=== PATIENT | female | born 1990 | race Caucasian/White ===

== ENCOUNTER 2019-11-14 12:52 | Inpatient (IN) | payer SELFPAY ==
[2019-11-14] VITALS (7 sets, daily range): BP systolic 99–112; BP diastolic 64–71; PULSE 94–118; RESP 16–18; TEMP 36.6–37; O2SAT 94–100; BMI 22.8; BMI 22.5
--- NOTE | 2019-11-14 13:45 | ED.VISSUMM ---
- ER Visit Summary Date of Service: 11/14/19 Chief Complaint: Requesting detox for fentanyl methamphetamine abuse History of Present Illness: The patient is a 28 F G2, P1 Ab0. Recently found out she was with a positive home test. She denies any pelvic pain or vaginal bleeding. 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 Also states that she has abscesses in her right armpit and right chin. When she abuses fentanyl she should sit up in her right antecubital. Denies ever going through detox inpatient before. Physical Examination: Young female no acute distress vital signs are stable afebrile. H EENT exam unremarkable. Neck nontender. Lungs clear to auscultation. Heart regular rhythm no murmur. Abdomen soft and nontender normal bowel sounds no peritoneal signs. She is moving all 4 extremities. Neurovascularly intact. She is a flat nontender abscess on her right proximal third of her alarcon. There is no cellulitis. Is not fluctuant does not need to be drained. There is no cellulitis. Her right axilla has 3 small abscesses that are resolving. She I&D does herself with a pen. Again no cellulitis. No fluctuance. Neurologically she is awake and alert with no focal motor or sensory deficits. Test Results: None Emergency Department Course and Treatment: Discussed with the hospitalist showroom consultant and he will admit the patient for detox. 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 It may contain incorrect words, spelling, and punctuation that were not noted in review of the chart prior to signing ED Disposition - Plan for ED Patient: Referrals: Rose Stevens MD [Primary Care Provider] -
--- NOTE | 2019-11-14 14:49 | HP.PCM_ITS ---
History of Present Illness Date of Admission: 11/14/19 Chief Complaint: Fentanyl use and left ear pain The patient is a 28 year old F with a PMH as below who presents after finding out that she was for fentanyl and meth detox. Her last use was yesterday, but she cannot quantify how much. She is denying any type of withdrawal symptoms at the moment, but she feels like she needs to get clean for the baby. She has been recommended previously and gave via section. She says that the last day of her last period was September 02, however she does not have an OB or a city wellness coordinator currently. Also she is complaining of left ear pain which started 1 to 2 weeks ago, she has noticed some discharge on occasion as well as blood on occasion coming out of her ear. She denies any fevers or chills. In the ER vital signs are stable, and a urine test is pending. 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 Review of Systems Constitutional: Denies: Chills, Fever, Weight Change HEENT: Reports: Ear Pain - With periodic drainage. Denies: Head Aches, Sinus Congestion, Sinus Drainage Cardiovascular: Denies: Chest Pain, Palpitations Respiratory: Denies: Cough, Shortness of breath at rest, Sputum production Gastrointestinal: Denies: Abdominal Pain, Nausea, Vomiting Genitourinary: Denies: Dysuria Musculoskeletal: Denies: Joint Pain, Joint Tenderness Skin: Denies: Rash, Wounds Neurological: Denies: Numbness, Tingling, Focal weakness Psychiatric: Denies: Anxiety, Depression Hematologic/ Lymphatic: Denies: Easy Bruising, Easy Bleeding VTE Information - Inpt Only VTE Present on Admission: No - Physical Exam Vitals/I&O's: Vital Signs Temp Pulse Resp BP Pulse Ox 98.4 F 97 16 102/64 98 11/14/19 14:11 11/14/19 14:11 11/14/19 14:11 11/14/19 14:11 11/14/19 12:53 Oxygen Delivery Method Room Air Weight: 125 lb Body Mass Index (BMI) 22.8 General: Alert, Oriented x3, Cooperative, No apparent distress HEENT: Atraumatic, PERRLA, EOMI, Normocephalic, TM's Clear, - - Left external ear pain with pulling, and there are some excoriations and redness in the left ear canal, TMs are clear bilaterally Oral: Moist Mucosa Neck: Supple, No JVD Lungs: Clear to auscultation, Normal air movement, No rhonchi, No wheeze, No rales Cardiovascular: Regular rate, Regular Rhythm, Normal S1, Normal S2, No murmurs Abdomen: Soft, Non Tender, Non-Distended, No Hepato-splenomegaly Extremities: No edema, Capillary Refill Less than 3 Seconds Skin: No breakdown, - - Signs of track miller and areas of healing abscesses on her upper and lower extremities Neurological: Neuro grossly intact, Sensory exam intact to light touch and pain Psych/Mental Status: Normal Affect, Appropriate Assessment/Plan All Active Problems Acute respiratory failure with hypoxia (Acute) Acute severe asthma (Acute) 1. Fentanyl and and meth abuse/ - test is pending, -Last use was yesterday at 4 AM -Last period was September 02 -We will obtain HIV, hep B and hep C panels -Continue with opioid withdrawal protocol, clonidine and methocarbamol were not continued because of risk however we will continue with Librium and Suboxone as well as Bentyl and hydroxyzine 2. Acute otitis externa -She does have some distress with manipulation of her left ear -We will prescribe Cipro drops in that left ear 4 times a day 3. Depression -Stable -Continue with her home medications 4. Asthma -Stable -Not in a current exacerbation -We will continue with her home inhalers DVT: Low risk Code Visit Inpatient E&M: 86113 Init Hosp L3
[2019-11-14 14:55] LABS: Internal QC Validated? YES +Cl - CLEAR BKGD
[2019-11-14 14:56] LABS: Pregnancy, Urine Negative Negative
[2019-11-14 16:32] LABS: Internal QC Validated? YES +Cl - CLEAR BKGD; Pregnancy, Serum, hCG Quali. NEGATIVE Negative
[2019-11-14] MEDS: Dicyclomine 10 MG Capsule 20 MG PO (17:05)
[2019-11-14] MEDS: Famotidine 20 MG Tablet PO (17:05)
[2019-11-14] MEDS: Montelukast 10 MG Tablet PO (17:05)
[2019-11-14] MEDS: Buprenorphine HCl 2 MG TAB.SUBL SL ×2 (17:06→23:20)
[2019-11-14] MEDS: Sertraline 50 MG Tablet 75 MG PO (17:06)
[2019-11-14 17:39] LABS: HIV - WCH Non-Reactive (Nonreactive)
[2019-11-14] MEDS: Ciprofloxacin 0.3% 2.5ml Bottle 4 DRP LEFT EAR ×2 (19:32→23:20)
[2019-11-14] MEDS: hydrOXYzine PAM 25 MG Capsule 50 MG PO (19:33)
[2019-11-14] MEDS: Acetaminophen 325 MG Tablet 650 MG PO (19:33)
[2019-11-15 04:16] VITALS: BP 106/68; PULSE 89; RESP 14; TEMP 36.7; O2SAT 97
[2019-11-15] MEDS: hydrOXYzine PAM 25 MG Capsule 50 MG PO (04:19)
--- NOTE | 2019-11-15 09:13 | PCM.PN.HOSP ---
Subjective: Resting comfortably, no issues overnight Vitals/I&O's: Vital Signs Temp Pulse Resp BP Pulse Ox 98.0 F 89 14 106/68 97 11/15/19 04:16 11/15/19 04:16 11/15/19 04:16 11/15/19 04:16 11/15/19 04:16 Oxygen Delivery Method Room Air Weight: 123 lb 3.2 oz Body Mass Index (BMI) 22.5 Intake and Output for Last 24 Hours 11/13/19 11/14/19 11/15/19 23:59 23:59 23:59 Intake Total 1000 / 1000 200 / 200 Balance 1000 / 1000 200 / 200 General: Alert, Oriented x3, Cooperative, No apparent distress HEENT: Atraumatic, PERRLA, EOMI, Normocephalic, TM's Clear, - - Left external ear pain with pulling Oral: Moist Mucosa Neck: Supple, No JVD Lungs: Clear to auscultation, Normal air movement, No rhonchi, No wheeze, No rales Cardiovascular: Regular rate, Regular Rhythm, Normal S1, Normal S2, No murmurs Abdomen: Soft, Non Tender, Non-Distended, No Hepato-splenomegaly Extremities: No edema, Capillary Refill Less than 3 Seconds Skin: No breakdown, - - Signs of track miller and areas of healing abscesses on her upper and lower extremities Neurological: Neuro grossly intact, Sensory exam intact to light touch and pain Psych/Mental Status: Normal Affect, Appropriate Laboratory Results 11/14/19 14:46: Urine Test Negative 11/14/19 15:50: Hepatitis A IgM Ab Pending, Hep Bs Antigen Pending, Hep B Core IgM Ab Pending, Hepatitis C Ab (EIA) Pending 11/14/19 15:50: HIV 1&2 Antibody Non-Reactive 11/14/19 15:50: Serum , Qual NEGATIVE Current Medications Acetaminophen (Tylenol) 650 mg PO Q6H PRN PRN PRN Reason: Pain Score 1-10/10 Last Admin: 11/14/19 19:33 Dose: 650 mg Documented by: Albuterol Sulfate (Ventolin Aerosols) 2.5 mg INHALATION Q4H PRN PRN Reason: Wheezing Buprenorphine HCl (Buprenorphine Hcl) 4 mg SL Q8H SCOTT; Taper Stop: 11/17/19 19:59 Last Admin: 11/14/19 23:20 Dose: 4 mg Documented by: Buspirone HCl (Buspar) 5 mg PO DAILY [facility] Chlordiazepoxide (Librium) 25 mg PO Q6H PRN PRN PRN Reason: Moderate-Severe Anxiety Ciprofloxacin HCl (Ciloxan) 4 drop LEFT EAR 4X/DAY [facility] Last Admin: 11/14/19 23:20 Dose: 4 drop Documented by: Dicyclomine HCl (Bentyl) 20 mg PO Q6H PRN PRN PRN Reason: Abdomnial Discomfort Last Admin: 11/14/19 17:05 Dose: 20 mg Documented by: Famotidine (Pepcid) 20 mg PO BID [facility] Last Admin: 11/14/19 17:05 Dose: 20 mg Documented by: Hydroxyzine Pamoate (Vistaril Pamoate Capsule) 50 mg PO Q6H PRN PRN PRN Reason: Mild Anxiety Last Admin: 11/15/19 04:19 Dose: 50 mg Documented by: Ibuprofen (Motrin) 600 mg PO Q8H PRN PRN PRN Reason: Pain Score 1-10/10 Montelukast Sodium (Singulair) 10 mg PO QHS [facility] Last Admin: 11/14/19 17:05 Dose: 10 mg Documented by: Nicotine (Nicoderm Cq (Pbkc)) 7 mg TRANSDERM. DAILY [facility] Last Admin: 11/14/19 19:32 Dose: 7 mg Documented by: Sertraline HCl (Zoloft) 75 mg PO DAILY [facility] Last Admin: 11/14/19 17:06 Dose: 75 mg Documented by: Sodium Chloride () 10 - 40 ml IV UD PRN PRN Reason: SALINE FLUSH Medical Necessity - Tobacco Use Smoking Status: Light Smoker (<10/day) Tobacco Use: Cigarettes Assessment/Plan All Active Problems Acute respiratory failure with hypoxia (Acute) Acute severe asthma (Acute) 1. Fentanyl and and meth abuse - test is negative both serum and urine -Last use was yesterday at 4 AM -hep B and hep C panels pending, HIV negative -Continue with opioid withdrawal protocol, 2. Acute otitis externa -She does have some distress with manipulation of her left ear -We will prescribe Cipro drops in that left ear 4 times a day 3. Depression -Stable -Continue with her home medications 4. Asthma -Stable -Not in a current exacerbation -We will continue with her home inhalers DVT: Low risk Code Visit Inpatient E&M: 13378 Subs Hosp L2
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
[2019-11-15 10:25] VITALS: BP 105/59; PULSE 41; RESP 16; TEMP 37; O2SAT 96
[2019-11-15] MEDS: Sertraline 50 MG Tablet 75 MG PO (10:36)
[2019-11-15] MEDS: Ibuprofen 600 MG Tablet PO (10:37)
[2019-11-15] MEDS: chlordiazePOXIDE 25 MG Capsule PO (10:37)
[2019-11-15] MEDS: Famotidine 20 MG Tablet PO ×2 (10:37→22:45)
[2019-11-15] MEDS: busPIRone 5 MG Tablet PO (10:37)
[2019-11-15] MEDS: Dicyclomine 10 MG Capsule 20 MG PO (10:38)
[2019-11-15] MEDS: Ciprofloxacin 0.3% 2.5ml Bottle 4 DRP LEFT EAR ×4 (10:38→22:43)
[2019-11-15] MEDS: Buprenorphine HCl 2 MG TAB.SUBL SL ×2 (10:41→15:41)
--- NOTE | 2019-11-15 12:24 | NURSING ---
PT RESTING QUIETLY IN BED, EYES CLOSED, RESP EASY
--- NOTE | 2019-11-15 12:29 | NURSING ---
PT RESTING QUIETLY IN BED, EYES CLOSED, RESP EASY
[2019-11-15 14:30] VITALS: BP 106/85; PULSE 109; RESP 18; TEMP 36.7; O2SAT 98
[2019-11-15 18:30] VITALS: BP 110/66; PULSE 101; RESP 16; TEMP 36.8; O2SAT 97
[2019-11-15 22:36] VITALS: BP 104/68; PULSE 88; RESP 16; TEMP 36.7; O2SAT 95
[2019-11-15] MEDS: Montelukast 10 MG Tablet PO (22:45)
[2019-11-16] MEDS: Buprenorphine HCl 2 MG TAB.SUBL SL ×2 (00:52→08:14)
[2019-11-16 03:06] LABS: HEPATITIS B SURFACE AG Negative (Negative); Hepatitis A IgM Antibody Positive (Negative); Hepatitis B Core AB IgM Positive (Negative)
[2019-11-16 04:33] VITALS: BP 107/65; PULSE 95; RESP 16; TEMP 36.6; O2SAT 95
[2019-11-16] MEDS: Ibuprofen 600 MG Tablet PO (04:38)
[2019-11-16 09:06] VITALS: BP 119/75; PULSE 119; RESP 18; TEMP 36.7; O2SAT 97
[2019-11-16] MEDS: Famotidine 20 MG Tablet PO (09:08)
[2019-11-16] MEDS: Sertraline 50 MG Tablet 75 MG PO (09:09)
[2019-11-16] MEDS: busPIRone 5 MG Tablet PO (09:09)
[2019-11-16] MEDS: Ciprofloxacin 0.3% 2.5ml Bottle 4 DRP LEFT EAR (09:11)
--- NOTE | 2019-11-16 09:30 | NURSING ---
Pt was seen with her jacket on with her aguilar over her head and back pack on. Pt was stopped at the door and questioned if she was a patient. Pt said she was in [address] and was leaving. It's [place] and I'm going to go see my child. Pt was agitated that we stopped her. Also became more agitated when we asked her to sign AMA paper. This is why I was trying to leave without anyone knowing, I just want to go see my kid and this is taking too long. Pt signed AMA paper.
--- NOTE | 2019-11-16 09:57 | PCM.PN.HOSP ---
Subjective: Doing well, she had a little bit of sweating last night but otherwise she feels fine. Vitals/I&O's: Vital Signs Temp Pulse Resp BP Pulse Ox 98.1 F 119 H 18 119/75 97 11/16/19 09:06 11/16/19 09:06 11/16/19 09:06 11/16/19 09:06 11/16/19 09:06 Oxygen Delivery Method Room Air Weight: 123 lb 3.2 oz Body Mass Index (BMI) 22.5 Intake and Output for Last 24 Hours 11/14/19 11/15/19 11/16/19 23:59 23:59 23:59 Intake Total 1000 / 1000 640 / 640 300 / 300 Balance 1000 / 1000 640 / 640 300 / 300 General: Alert, Oriented x3, Cooperative, No apparent distress HEENT: Atraumatic, PERRLA, EOMI, Normocephalic, TM's Clear, left ear feels fine Oral: Moist Mucosa Neck: Supple, No JVD Lungs: Clear to auscultation, Normal air movement, No rhonchi, No wheeze, No rales Cardiovascular: Regular rate, Regular Rhythm, Normal S1, Normal S2, No murmurs Abdomen: Soft, Non Tender, Non-Distended, No Hepato-splenomegaly Extremities: No edema, Capillary Refill Less than 3 Seconds Skin: No breakdown, - - Signs of track miller and areas of healing abscesses on her upper and lower extremities Neurological: Neuro grossly intact, Sensory exam intact to light touch and pain Psych/Mental Status: Normal Affect, Appropriate STROKE Vital Signs/Narrative: Vital Signs Temp Pulse Resp BP Pulse Ox 11/16/19 09:06 98.1 F 119 H 18 119/75 97 Medical Necessity - Tobacco Use Smoking Status: Light Smoker (<10/day) Tobacco Use: Cigarettes Assessment/Plan All Active Problems Acute respiratory failure with hypoxia (Acute) Acute severe asthma (Acute) 1. Fentanyl and and meth abuse - test is negative both serum and urine -Last use was yesterday at 4 AM -Hepatitis panels are pending, HIV was negative -Continue with opioid withdrawal protocol, 2. Acute otitis externa -She does have some distress with manipulation of her left ear -We will prescribe Cipro drops in that left ear 4 times a day 3. Depression -Stable -Continue with her home medications 4. Asthma -Stable -Not in a current exacerbation -We will continue with her home inhalers Disposition: After my exam the prior to writing this note I was notified that patient left AMA, nursing staff did discuss with her that it would be better for her gestational he had 1 more day for the opioid withdrawal protocol however she refused to stay. Because of this I was unable to prescribe her her eardrops for her otitis externa. DVT: Low risk Code Visit Inpatient E&M: 53064 Subs Hosp L2
--- NOTE | 2019-11-16 11:30 | NURSING ---
Pt went AMA at 0912, she signed the paperwork.
[2019-11-17 11:47] LABS: Hep C Antibodies >11.0 s/co ratio (0.0-0.9)
== END 2019-11-16 09:20 | disposition left against medical advice (07) | DRG 833 ==
LOC: ED 13:22 → MS3 14:03
PROVIDERS: Admitting Provider Family Medicine; Emergency Provider Emergency Medicine; Family Provider Internal Medicine; PCP Internal Medicine; Referring Provider Family Medicine; Visit Provider Family Medicine
DX: O99.321 Drug use complicating pregnancy, first trimester (principal); F15.10 Other stimulant abuse, uncomplicated; O99.331 Smoking (tobacco) complicating pregnancy, first trimester; F17.210 Nicotine dependence, cigarettes, uncomplicated; O99.341 Other mental disorders complicating pregnancy, first trimester; F32.9 Major depressive disorder, single episode, unspecified; O99.89 Other specified diseases and conditions complicating pregnancy, childbirth and the puerperium; H60.502 Unspecified acute noninfective otitis externa, left ear; J45.909 Unspecified asthma, uncomplicated; O99.511 Diseases of the respiratory system complicating pregnancy, first trimester; Z3A.00 Weeks of gestation of pregnancy not specified
CPT/HCPCS: 36415; 80074; 81025; 84703; 86703; 99283

== ENCOUNTER 2019-11-20 22:38 | Emergency (ER) | payer SELFPAY ==
[2019-11-14 15:23] VITALS: BMI 22.5
[2019-11-20 22:40] VITALS: BP 143/91; PULSE 117; RESP 24; TEMP 36.2; O2SAT 98; BMI 25.2
[2019-11-20] MEDS: Naloxone 2 MG/2 ML Syringe NS (22:59)
--- NOTE | 2019-11-20 23:00 | ED.RN ---
02 sats dropping to 62% while sleeping. new order for narcan and given nasally. pt alert and crying.
[2019-11-20 23:01] VITALS: PULSE 109; RESP 20; O2SAT 95
[2019-11-20 23:30] VITALS: PULSE 89; RESP 14; O2SAT 97
[2019-11-21] VITALS (7 sets, daily range): BP systolic 98–110; BP diastolic 71–82; PULSE 79–94; RESP 14–18; O2SAT 94–100
--- NOTE | 2019-11-21 00:19 | ED.DCSUM_ITS ---
- ER Visit Summary Date of Service: 11/21/19 Chief Complaint: Altered mental status History of Present Illness: The patient is a 28 F with altered mental status today. She was found on a friend's porch. She says that she was using meth yesterday and then fentanyl today. She denies any injury. She has no complaints. History is limited. She is oriented to person only and not cooperative with the history. Physical Examination: Afebrile and vital signs unremarkable. Head and neck atraumatic. Neck is nontender. Heart is regular. Lungs are clear. Abdomen is soft. Patient has multiple excoriations over her face and extremities with small scabs. She is moving her arms and legs restlessly. She has mild agitation. Test Results: Blood sugar pending. Emergency Department Course and Treatment: Patient was placed on a monitor. She seemed to be increasingly somnolent and her oxygen was dropping. We were also having trouble getting a good reading. She was treated with naloxone. She seemed to breathe better, and she was more comfortable. Pulse ox 96% on room air. Resting comfortably without agitation. We will continue to monitor overnight and discharge when alert, oriented, and otherwise appropriate. At this time, there is nothing to suggest trauma. There is nothing to suggest another cause for her altered mental status. Patient has no specific complaints. Oncoming doctor will monitor overnight. Discharge when appropriate. Treatment Plan: As above Disposition: Pending discharge Impression: 1. Methamphetamine abuse 2. Opioid abuse This note was generated with [employer] software. It may contain incorrect words, spelling, and punctuation that were not noted in review of the chart prior to signing ED Disposition - Plan for ED Patient: Referrals: Rose Stevens MD [Primary Care Provider] -
--- NOTE | 2019-11-21 00:28 | ED.DEP ---
ED Disposition - Plan for ED Patient: Instructions: Opiate Abuse Referrals: Rose Stevens MD [Primary Care Provider] -
[2019-11-21 00:31] LABS: Bedside Glucose 80 mg/dL (70-110)
== END 2019-11-21 06:37 | disposition home or self-care (01) ==
PROVIDERS: Emergency Medicine; Emergency Provider Emergency Medicine; Family Provider Internal Medicine; PCP Internal Medicine
DX: F15.10 Other stimulant abuse, uncomplicated (principal); F11.10 Opioid abuse, uncomplicated; R40.0 Somnolence; Z72.0 Tobacco use
CPT/HCPCS: 82962; 99285

== ENCOUNTER 2020-03-15 19:09 | Emergency (ER) | payer SELFPAY ==
[2020-03-15 19:10] VITALS: BP 121/74; PULSE 101; RESP 18; TEMP 36.7; O2SAT 94; BMI 25.0
--- NOTE | 2020-03-15 19:29 | ED.DCSUM_ITS ---
History of Present Illness Chief Complaint: Abscess Detail of Chief Complaint: Pain, swelling left thumb Informant: Patient Onset: Days Context: Sudden Onset Timing: Continuous Quality: Swelling and redness Location: Left thumb Current Severity: Mild Maximum Severity: Severe Worsened by: Use of left thumb Relieved by: Nothing Associated Symptoms: No associated symptoms Narrative: Patient is a 29-year-old IV drug user who presents because of presumed infected left thumb. She states she was cleaning under her nails using a pocket knife. She believes she may have cut herself. She complains of redness, pressure, s welling and pain that is gotten worse over the past 2 days. She denies fever, chills or night sweats. She denies history medic fever, SBE or being immune suppressed. She denies GI symptoms. She denies history of HIV. Prior similar symptoms: No Recent Illness/Hospitalization: No - Past Medical History (1) Bronchial asthma Status: Chronic Past Medical History - Allergies and Home Meds Allergies/Adverse Reactions: Allergies No Known Allergies Allergy (Verified 03/15/20 19:12) Primary Care Physician: Rose Stevens MD [Primary Care Provider] - Prior records reviewed: Yes Surgical History: - - section Lives: Alone Smoking Status: Current every day smoker Alcohol: Rare Drugs: Heroin - Family History Maternal Family History: Reports: Heart Disease Paternal Family History: Reports: COPD Sibling Family History: Reports: - - Her sister is diabetic. Review of Systems General: Denies: Chills, Fever, Malaise, Subjective, Sweats Eyes: Denies: Visual changes - bilaterally, Blurred Vision - bilaterally ENT: Denies: Rhinorrhea, Sore throat Cardiovascular: Denies: Chest pain, Palpitations Respiratory: Denies: Dyspnea, Cough, Dyspnea on exertion Gastrointestinal: Denies: Nausea, Vomiting, Diarrhea Musculoskeletal: Reports: Swelling, Extremity Pain. Denies: Myalgias, Arthralgias, Neck pain, Back pain Skin: Reports: Rash, Abscess. Denies: Abrasions, Wounds Neurological: Denies: Headache, Weakness, Parasthesia, Numbness Hematologic: Denies: Easy bruising, Easy bleeding Allergy: Denies: Uticaria, Swelling of the mouth, Swelling of the tongue Physical Exam Vital Signs/Narrative: Vital Signs Temp Pulse Resp BP Pulse Ox 03/15/20 19:10 98.0 F 101 H 18 121/74 H 94 Inital Vital Signs reviewed: Yes General: Well nourished, Well developed, No Acute Distress Head: Normocephalic, Atraumatic Eyes: Perrl, EOMI. Negative for: Pale conjunctiva, Scleral icterus ENT: Moist mucous membranes, No rhinorrhea Neck: Supple, Nontender, No lymphadenopathy, No JVD Cardiovascular: Regular rate, Regular rhythm, No murmurs, Normal S1, Normal S2 Respiratory: No distress, CTA bilaterally, Chest nontender Extremities: No edema, Tenderness - There is swelling and redness left thumb and findings are consistent with a felon. There is no lymphangitis. There is no pain the IP joint or MCP joint of the left thumb. There is no pain the patient over the extensor pollicis longus or extensor pollicis brevis. There is no pain the patient over the thenar eminence. There is no epitrochlear lymphadenopathy., - - Track miller noted upper extremities.. Negative for: Nontender Skin: Normal color, Rash. Negative for: No rash, Cyanosis, Diaphoresis, Jaundice Neurological: Alert, Oriented x3, Cranial nerves II-XII grossly intact, Normal Strength, Normal Sensation Psychological: Normal affect, Normal Mood Diagnostic/Tx/Re-eval - Medical Decision Making Has an abscess/felon that will require I&D. Please read procedure note. Patient will receive antibiotics and referred to orthopedics. Procedures Procedure(s): Patient was prepped draped sterile manner. The thumb was anesthetized by metacarpal nerve block and superficial radial nerve block. Once patient was not able to perceive pinprick and incision was made using a 15 blade. There was purulent drainage noted. Blunt dissection was undertaken. There was more drainage noted. The cavity was irrigated. ED Disposition - Plan for ED Patient: Disposition: Home or Assisted Living Diagnosis: Felon of finger of left hand Instructions: ED Abscess Incision And Drainage Prescriptions: Smz/Tmp Ds [Bactrim Ds] 1 tab PO BID #14 tab Transmission Status: Pending to [facility] Cephalexin [Keflex] 500 mg PO 4X/DAY #28 cap Transmission Status: Pending to [facility] Referrals: Rose Stevens MD [Primary Care Provider] - Jono Walter MD [STAFF PHYSICIAN] - 2 Days for wound check
[2020-03-15] MEDS: Smz/Tmp Ds Tablet 1 TABLET PO (19:58)
[2020-03-15] MEDS: Cephalexin 250 MG Capsule 500 MG PO (19:58)
== END 2020-03-15 20:10 | disposition home or self-care (01) ==
LOC: ED 20:07
PROVIDERS: Emergency Provider Emergency Medicine; PCP Internal Medicine
DX: L03.012 Cellulitis of left finger (principal); F17.200 Nicotine dependence, unspecified, uncomplicated
CPT/HCPCS: 26011; 99283

== ENCOUNTER 2020-08-05 23:07 | Inpatient (IN) | payer MEDICAID, SELFPAY ==
[2020-08-05 23:08] VITALS: BP 107/82; PULSE 101; RESP 18; TEMP 36.3; O2SAT 99; BMI 20.3
--- NOTE | 2020-08-05 23:09 | ED.RN ---
REVIEWED SOME PROTOCOLS FOR DETOX, IE: NO PHONE, NO FOOD, NO VISITORS.
[2020-08-06] VITALS (7 sets, daily range): BP systolic 91–112; BP diastolic 57–72; PULSE 79–95; RESP 12–16; TEMP 36.4–36.9; O2SAT 97–100; BMI 20.1
--- NOTE | 2020-08-06 00:15 | ED.DCSUM_ITS ---
- ER Visit Summary Date of Service: 08/06/20 Chief Complaint: Fentanyl detox History of Present Illness: The patient is a 29 F who requests admission for detox from fentanyl. Patient states she uses IV fentanyl. Patient states she is approximately half a gram per day. Patient states her last use was appr oximate 1 hour prior to arrival. Patient states she has been through detox before. Patient states her last detox was here 1 month ago. Patient denies any fevers or chills. Patient denies any nausea or vomiting. Patient denies any tremors or seizures. Physical Examination: Vital signs are stable. Patient is afebrile. Patient is in no acute distress. Oral mucosa is pink and moist. Neck is supple. Trachea is midline. There is no JVD noted. Heart was regular rate and rhythm. Lungs are clear and equal bilaterally. Abdomen is soft. Bowel sounds are normal. There is no tenderness. There is no rebound or guarding noted. Skin is warm dry. Cranial nerves II through XII are intact. There are no focal motor or sensory deficits noted. Extremities are intact. There is no calf tenderness or edema. Test Results: CBC, comprehensive metabolic profile, serum hCG, serum alcohol level, urinalysis, urine tox screen were ordered. Urine tox urine was positive for opiates, amphetamines, MDMA, and cannabinoids. Urinalysis showed leukocyte esterase of 500 with 10-25 red blood cells and 1+ bacteria. The remaining labs were within normal limits. Emergency Department Course and Treatment: Case was discussed with the hospitalist. She will admit the patient to her service. Patient understood and was agreeable with the plan. All questions were answered. Disposition: Admit to hospital Impression: 1. Narcotic abuse This note was generated with Reissued dictation software. It may contain incorrect words, spelling, and punctuation that were not noted in review of the chart prior to signing ED Disposition - Plan for ED Patient: Disposition: Acute Care Hospital [facility] Diagnosis: Opiate abuse, continuous
[2020-08-06 00:17] LABS: Mucous, Urine 0 SEEN /hpf (<or=2+); White Blood Cells 0 SEEN /hpf (0-5)
[2020-08-06 00:18] LABS: Color, Urine Yellow (Yellow); Glucose, Dipstick Normal (Normal); Ketone-Dipstick 5 mg/dl (Negative); Leukocyte Esterase-Dipstick 500 /ul (Negative); Nitrite-Dipstick Negative (Negative); Occult Blood-Urine 10 /ul (Negative); Protein-Dipstick 30 mg/dl (Negative); Specific Gravity, Urine 1.025 (1.002-1.030); Urine Bilirubin Dipstick Negative (Negative); Urine Clarity Clear (Clear); Urine Urobilinogen 1 mg/dl (Normal)
[2020-08-06 00:24] LABS: Bacteria 1+ /hpf (None Seen); Red Blood Cells-Urine 10-25 SEEN /hpf (0-5); Squamous Epithelial Cells - UA 0-5 SEEN /hpf (5-10)
[2020-08-06 00:33] LABS: Amphetamine Urine VISTA POSITIVE (<1000 ng/mL); Barbiturate Urine VISTA NEGATIVE (< 200 ng/mL); Benzodiazepine Urine VISTA NEGATIVE (< 200 ng/mL); Cocaine Urine VISTA NEGATIVE (< 300 ng/mL); Ecstacy Urine VISTA POSITIVE (< 500 ng/mL); Methadone Urine VISTA NEGATIVE (< 300 ng/mL); PCP Urine VISTA NEGATIVE (< 25 ng/mL); THC Urine VISTA POSITIVE (< 50 ng/mL); Vista UDS pH Range 5
[2020-08-06 00:35] LABS: Internal QC Validated? YES +Cl - CLEAR BKGD; Pregnancy, Urine Negative Negative
[2020-08-06 00:53] LABS: Absolute Lymphocyte Count 3.29 X10^3/uL (0.83-4.51); Absolute Neutrophil Count 2.1 X10^3/uL (2.0-7.7); Basophil# 0.05 X10^3/uL; Basophil% 0.8 % (0-1); Eosinophil# 0.18 X10^3/uL; Eosinophils% 2.9 % (0-5); Hematocrit 37.8 % (37-47); Hemoglobin 12.2 g/dL (12.0-15.0); Lymphocyte # 3.29 X10^3/ul (4.0); Lymphocyte % 53.2 % (19-41); Mean Corp Hgb Conc 32.3 g/dL (32-36); Mean Corpuscular Hgb 30.5 pg (27.0-32.0); Mean Corpuscular Volume 94.5 fL (81-99); Mean Platelet Vol. 8.9 fl (6.2-12.0); Monocyte# 0.54 X10^3/uL; Monocyte% 8.7 % (0-10); NRBC Flagged by Analyzer 0 % (0-5); Neutrophil # 2.12 X10^3/uL (2.7-7.7); Neutrophil % 34.2 % (47-70); Platelet Count 290 K/mm3 (150-450); RBC Distribution Width CV 13.2 % (11.6-14.6); RBC Distribution Width SD 45.8 fl (35.1-43.9); White Blood Count 6.2 K/mm3 (4.4-11.0)
[2020-08-06 01:01] LABS: ALB/GLOB Ratio 0.7 RATIO (0.9-2.4); AST(SGOT) 67 U/L (15-37); Alanine Aminotransfer ALT/SGPT 104 U/L (13-56); Albumin, Serum 3.2 g/dL (3.2-5.0); Alkaline Phosphatase 70 U/L (45-117); Anion Gap 5 (5-15); BUN 11 mg/dL (7-18); BUN/Creat Ratio 16.1 RATIO (10-20); Calcium,Total 8.6 mg/dL (8.5-10.1); Chloride 106 mmol/L (98-107); Creatinine, Serum 0.68 mg/dL (0.55-1.02); EST Glomerular Filtration Rate 109 mL/min (>60); Est Glom Filt Rate - Afr Amer 132 mL/min (>60); Estimated Creatinine Clearance 97.42 ml/min; Globulin 4.6 g/dL (2.2-4.2); Glucose 117 mg/dL (74-106); Protein, Total 7.8 g/dL (6.4-8.2); Sodium Level 136 mmol/L (136-145)
[2020-08-06 01:03] LABS: Alcohol, Blood (Medical)-Serum < 3.0 mg/dL
--- NOTE | 2020-08-06 01:05 | PCM.HP.STD ---
Problem List (1) Opiate withdrawal Status: Acute (2) Anxiety and depression Status: Chronic (3) Hepatitis C Status: Chronic Qualifiers: Viral hepatitis chronicity: unspecified Hepatic coma status: without hepatic coma Qualified Code(s): B19.20 - Unspecified viral hepatitis C without hepatic coma (4) IV drug abuse Status: Chronic (5) Tobacco use Status: Chronic (6) Opiate abuse, continuous Status: Chronic (7) Bronchial asthma Status: Chronic Qualifiers: Asthma severity: unspecified severity Asthma persistence: unspecified Asthma complication type: unspecified Qualified Code(s): J45.909 - Unspecified asthma, uncomplicated History of Present Illness Date of Admission: 08/06/20 Chief Complaint: Fentanyl, Meth abuse with acute opiate withdrawal The patient is a 29 y/o F w/ PMHx: Asthma, Anxiety and Depression, Allergic Rhinitis, Tobacco use, Polysubstance abuse (IV Fentanyl usually 1/2 g/day last used a prior to ED presentation, Meth normally used IV intermittently, use last approximately 2 days prior to current presentation), known hepatitis who presents to the [facility] ED on 08/06/20 w/ noted opiate withdrawal onset starting prior to ED presentation following last dose 4 to 5 hours prior to evaluation in the ED per patient report but notes that she has been in the ED for several hours and it was 1 to 2 hours prior to her initial ED presentation with now onset abdominal pain/cramping, generalized body aches and pains, rhinorrhea, fatigue, restless leg, sweating. Patient was previously admitted in October for opiate withdrawal. Asked why patient has returned and she notes that her daughter has an upcoming fifth birthday and she is interested in obtaining clean status. Talked at length about her hepatitis C status and possibly be strongly encouraging her to maintain clean status with ongoing documented meeting attendance for initiation of treatment for hepatitis. Work-up in the ED included T 97.4, heart rate 101, BP 107/82, respiratory rate 18, 99% on room air, CBC with WC 6.2, hemoglobin 12.2, platelet 290, CMP with glucose 117, AST/ALT 67/104, alk phos 70, negative testing, urinalysis with evidence dehydration 1.025, protein 30, ketone 5, occult blood 10, negative nitrite, leukocyte Estrace 500, RBC 10-25, no urine WBCs, 1+ urine bacteria noted, UDS with opiates, amphetamine, methamphetamine, cannabis, ethyl alcohol less than 3. Past Medical History Past Medical History (Chronic Problems): Chronic Problems Opiate abuse, continuous (Chronic) Anxiety and depression (Chronic) Hepatitis C (Chronic) IV drug abuse (Chronic) Tobacco use (Chronic) Obesity (BMI 30-39.9) (Chronic) Bronchial asthma (Chronic) Allergies No Known Allergies Allergy (Verified 03/15/20 19:12) Home Medications: Ambulatory Orders Medication Instructions Recorded Famotidine [Pepcid] 20 mg PO BID 01/26/16 Albuterol Sulfate [Albuterol 2 puff PO BID PRN PRN 08/06/20 Sulfate HFA] Budesonide/Formoterol 160/4.5 2 puff PO DAILY 08/06/20 [Symbicort 160/4.5 Mcg Inhaler (SP)] Montelukast [Singulair] 10 mg PO DAILY 08/06/20 Sertraline HCl [Zoloft] 75 mg PO DAILY 08/06/20 busPIRone [Buspar] 10 mg PO TID 08/06/20 Surgical History: - - x1. 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 Her daughter who is nearly turning 5 years old currently lives with her dad although patient does states she has custody. Smoking Status: Current every day smoker Tobacco Use: Cigarettes Alcohol: None Drugs: - - IV fentanyl approximately 1/2 g/day in addition to methamphetamine intermittently also intravenously. - *Family History Maternal History Items: Diabetes, Heart Disease Paternal History Items: COPD, - - Father with a history of substance abuse, alcohol abuse. Sibling History Items: - - Her sister is diabetic. Review of Systems Constitutional: Reports: Anorexia, Chills, Malaise, Weakness, Fatigue. Denies: Fever, Weight Change HEENT: Reports: Nasal Congestion, Post Nasal Drip, Sinus Congestion. Denies: Head Aches, Nasal bleeding, Sinus Drainage Cardiovascular: Denies: Chest Pain, Chest Pressure, Chest Tightness, Light Headedness, Orthopnea, Palpitations, Syncope Respiratory: Denies: Cough, Shortness of Breath, Shortness of breath at rest, Shortness of breath upon exertion, Sputum production Gastrointestinal: Reports: Abdominal Pain, Nausea. Denies: Constipation, Diarrhea, Vomiting Genitourinary: Denies: Dysuria Musculoskeletal: Reports: Joint Pain, Muscle pain. Denies: Joint Tenderness Skin: Denies: Rash, Wounds Neurological: Denies: Numbness, Tingling, Focal weakness Psychiatric: Reports: Anxiety, Depression. Denies: Homicidal Ideations, Suicidal Ideations Hematologic/ Lymphatic: Denies: Easy Bruising, Easy Bleeding VTE Information - Inpt Only VTE Present on Admission: No VTE Mechan Device Prophylaxis: None VTE Pharm Prophylaxis ordered?: No Reason prophylaxis not ordered:: Treatment Not Indicated Patient Problems: Active and Suspected Problems Opiate withdrawal (Acute) Subjective: Seated upright in the ED bed, anxious, moving frequently but also yawning. Objective: Physical Examination: General: awake, alert, oriented x 3 and cooperative, seated upright in the ED bed, anxious, moving frequently but notes she is tired. Skin: normal color, turgor, no icterus, cyanosis. HEENT: AT/NC, EOMI, PERRLA, mild rhinorrhea evident, dry MM, no carotid bruits or JVD noted. Lungs: CTA bilaterally, moderate effort, mild decrease BL bases, no rales, ronchi or wheezing. Heart: Regular rate and rhythm; no gallop, rub audible. Abdomen: soft, generalized discomfort with palpation with no rebound or guarding, ND, mildly hyperactive BS, mild HM. Extremities: no cyanosis, clubbing, or edema. Neurological: patient awake, alert, oriented x 3; cognitive function intact; pupils equally reactive to light and accomodation; cranial nerves II-XII grossly normal, moving all 4 extremities, no focal deficits, strength mild to moderate global decrease secondary to acute presentation with withdrawal Psychiatric: affect appears restless, anxious, no acute evidence of depressive feelings. - Physical Exam Vitals/I&O's: Vital Signs Temp Pulse Resp BP Pulse Ox 97.4 F L 101 H 18 107/82 H 99 08/05/20 23:08 08/05/20 23:08 08/05/20 23:08 08/05/20 23:08 08/05/20 23:08 Oxygen Delivery Method Room Air Weight: 111 lb 1.808 oz Body Mass Index (BMI) 20.3 Finger Stick Blood Glucose 80 Laboratory Results 08/05/20 00:05: Urine Color Yellow, Urine Clarity Clear, Urine pH 6.0, Ur Specific [place] 1.025, Urine Protein 30 H, Urine Glucose (UA) Normal, Urine Ketones 5 H, Urine Occult Blood 10 H, Urine Nitrite Negative, Urine Bilirubin Negative, Urine Urobilinogen 1 H, Ur Leukocyte Esterase 500 H, Urine RBC 10-25 SEEN, Urine WBC 0 SEEN, Ur Squamous Epith Cells 0-5 SEEN, Urine Bacteria 1+, Urine Mucus 0 SEEN 08/05/20 00:05: Urine Opiates Screen POSITIVE H, Urine Methadone Screen NEGATIVE, Ur Barbiturates Screen NEGATIVE, Ur Phencyclidine Scrn NEGATIVE, Ur Amphetamines Screen POSITIVE H, U Methamphetamin-MDMA POSITIVE H, U Benzodiazepines Scrn NEGATIVE, Urine Cocaine Screen NEGATIVE, U Cannabinoids Screen POSITIVE H, Ur Drug Screen Comment 08/06/20 00:05: Urine Test Negative 08/06/20 00:28: WBC Cancelled, Corrected WBC Cancelled, RBC Cancelled, Hgb Cancelled, Hct Cancelled, MCV Cancelled, MCH Cancelled, MCHC Cancelled, RDW Std Deviation Cancelled, RDW Coeff of Tiffanie Cancelled, Plt Count Cancelled, MPV Cancelled, Immature Gran % (Auto) Cancelled, Neut % (Auto) Cancelled, Lymph % (Auto) Cancelled, [place] % (Auto) Cancelled, Eos % (Auto) Cancelled, Baso % (Auto) Cancelled, Absolute Neuts (auto) Cancelled, Absolute Lymphs (auto) Cancelled, Total Counted Cancelled, Neutrophils % (Manual) Cancelled, Band Neutrophils % Cancelled, Lymphocytes % (Manual) Cancelled, Monocytes % (Manual) Cancelled, Eosinophils % (Manual) Cancelled, Basophils % (Manual) Cancelled, Metamyelocytes % Cancelled, Myelocytes % Cancelled, Promyelocytes % Cancelled, Blast Cells % Cancelled, Plasma Cell % (Manual) Cancelled, Other Cells % Cancelled, Nucleated RBC % Cancelled, Nucleated RBCs/100 WBC Cancelled, Differential Comment Cancelled, Diff Path Review Cancelled, Hypersegmented Neuts Cancelled, Atypical Lymphocytes Cancelled, Reactive Lymphocytes Cancelled, Smudge Cells Cancelled, Toxic Granulation Cancelled, Toxic Vacuolation Cancelled, Dohle Bodies Cancelled, Jacob Rods Cancelled, Platelet Estimate Cancelled, Plt Morphology Comment Cancelled, RBC Morphology Cancelled, Polychromasia Cancelled, Hypochromasia Cancelled, Poikilocytosis Cancelled, Basophilic Stippling Cancelled, Anisocytosis Cancelled, Microcytosis Cancelled, Macrocytosis Cancelled, Spherocytes Cancelled, Sickle Cells Cancelled, Target Cells Cancelled, Tear Drop Cells Cancelled, Ovalocytes Cancelled, Stomatocytes Cancelled, [place] Bodies Cancelled, Everardo Cells Cancelled, Bite Cells Cancelled, Crenated Cell Cancelled, Acanthocytes (Spur) Cancelled, Rouleaux Cancelled, Schistocytes Cancelled 08/06/20 00:28: Sodium 136, Potassium 4.0, Chloride 106, Carbon Dioxide 25.0, Anion Gap 5, BUN 11, Creatinine 0.68, Estim Creat Clear Calc 97.42, Est GFR (MDRD) Af Amer 132, Est GFR (MDRD) Non-Af 109, BUN/Creatinine Ratio 16.1, Glucose 117 H, Calcium 8.6, Total Bilirubin 0.40, AST 67 H, ALT 104 H, Alkaline Phosphatase 70, Total Protein 7.8, Albumin 3.2, Globulin 4.6 H, Albumin/Globulin Ratio 0.7 L 08/06/20 00:28: Ethyl Alcohol < 3.0 08/06/20 00:42: WBC 6.2, RBC 4.00 L, Hgb 12.2, Hct 37.8, MCV 94.5, MCH 30.5, MCHC 32.3, RDW Std Deviation 45.8 H, RDW Coeff of Tiffanie 13.2, Plt Count 290, MPV 8.9, Immature Gran % (Auto) 0.200, Neut % (Auto) 34.2 L, Lymph % (Auto) 53.2 H, [place] % (Auto) 8.7, Eos % (Auto) 2.9, Baso % (Auto) 0.8, Absolute Neuts (auto) 2.1, Absolute Lymphs (auto) 3.29, Nucleated RBC % 0 Assessment/Plan All Active Problems Opiate withdrawal (Acute) Acute respiratory failure with hypoxia (Acute) Acute severe asthma (Acute) The patient is a 29 y/o F w/ PMHx: Asthma, Anxiety and Depression, Allergic Rhinitis, Tobacco use, Polysubstance abuse (IV Fentanyl, Meth), known hepatitis who presents to the [facility] ED on 08/06/20 w/ noted opiate withdrawal onset starting prior to ED presentation following last dose 4 to 5 hours prior to evaluation in the ED per patient report but notes that she has been in the ED for several hours and it was 1 to 2 hours prior to her initial ED presentation with now onset opiate acute withdrawal interested in clean status. 1. Acute Opiate Withdrawal: Will admit to [facility], routine labs including CBC, CMP, urine for drug screen obtained in the ED with noted elevated liver functions chronically, urinalysis with evidence of dehydration denied urinary symptoms, UDS with positive opiate, amphetamine, methamphetamine, cannabis, ethyl alcohol level unremarkable, will initiate and continue on protocol with tapering course of Subutex, as needed tylenol, ibuprofen, bowel regimen, gabapentin, Bentyl, Vistaril, methocarbamol, clonidine, PRN nightly trazodone for insomnia, IV fluids, IV antiemetics. Once patient clinically improved and completion of taper nearing will plan consultation with case management for transition to next level of rehabilitation care. 2. Polysubstance Abuse, IVDA, History of Hepatitis C, Chronic, possibly B: Discussed that patient is currently not candidate for hep C treatment currently as needs to be clean, sober x 6 months, documented attendance NA or AA meetings, counseling and ongoing negative drug screens. Strongly encouraged PCP establishment and follow-up. 3. Tobacco Abuse: Encouraged cessation, inpatient consultation per RT, NR if desired. 4. Chronic asthma: We will temporarily hold home inhaler and in interim maintain on ATC DuoNeb therapy with PRN albuterol. 5. Anxiety and depression: We will continue patient home sertraline and BuSpar regimen. 6. GERD: We will continue patient home famotidine regimen. 7. DVT prophylaxis: Low risk, encourage ambulation. Inpatient E&M: 39216 Init Hosp L3
--- NOTE | 2020-08-06 01:36 | ED.RN ---
SPOKE WITH DR. HOLDEN, D/C IV ORDER.
[2020-08-06] MEDS: busPIRone 5 MG Tablet 10 MG PO ×3 (05:26→22:03)
--- NOTE | 2020-08-06 10:30 | ADDICTION ---
This typewriter mechanic attempted to meet with patient in her room to complete assessments and begin discharge planning. patient did not rouse to verbal queueing (3 attempts). This typewriter mechanic will attempt to meet with patient on 08/07/2020.
[2020-08-06] MEDS: Sertraline 50 MG Tablet 75 MG PO (10:33)
[2020-08-06] MEDS: Famotidine 20 MG Tablet PO ×2 (10:34→22:03)
[2020-08-06] MEDS: Montelukast 10 MG Tablet PO (10:34)
[2020-08-06] MEDS: Buprenorphine HCl 2 MG TAB.SUBL SL ×2 (15:26→22:04)
[2020-08-06] MEDS: Methocarbamol 750 MG Tablet 1500 MG PO (22:03)
[2020-08-06] MEDS: Dicyclomine 10 MG Capsule 20 MG PO (22:03)
[2020-08-06] MEDS: traZODone 100 MG Tablet PO (22:03)
[2020-08-07 05:17] VITALS: BP 99/61; PULSE 82; RESP 14; TEMP 36.4; O2SAT 95
[2020-08-07] MEDS: Buprenorphine HCl 2 MG TAB.SUBL SL ×3 (05:18→21:28)
[2020-08-07] MEDS: busPIRone 5 MG Tablet 10 MG PO ×3 (05:18→21:29)
[2020-08-07 07:24] VITALS: O2SAT 95
[2020-08-07 08:08] VITALS: BP 109/64; PULSE 98; RESP 16; TEMP 36.5; O2SAT 99
[2020-08-07 08:12] VITALS: RESP 16
--- NOTE | 2020-08-07 09:24 | ADDICTION ---
This scientific writer met with patient in her room to complete ASAM, MSE and DUDIT assessments and to begin processing discharge. Patient was alert and oriented x4 and participated actively in her discharge planning. She appears approrpaite for the 4.0 LOC as evidenced by use history, frequency and amount and risk of severe withdrawal effects. This scientific writer has [facility] a [facility], by her request. This scientific writer will update patient and chart with acceptance or denial upon receipt. She was given a copy of her discharge plan.
--- NOTE | 2020-08-07 09:46 | PN_ITS ---
Patient Problems: Active and Suspected Problems Opiate withdrawal (Acute) Subjective: Doing well, no issues overnight Vitals/I&O's: Vital Signs Temp Pulse Resp BP Pulse Ox 97.7 F L 98 16 109/64 99 08/07/20 08:08 08/07/20 08:08 08/07/20 08:12 08/07/20 08:08 08/07/20 08:08 Oxygen Delivery Method Room Air Weight: 110 lb 0.171 oz Body Mass Index (BMI) 20.1 Finger Stick Blood Glucose 80 Intake and Output for Last 24 Hours 08/05/20 08/06/20 08/07/20 23:59 23:59 23:59 Intake Total 2 / 922 Balance 2 / 922 General: Alert, Oriented x3, Cooperative, No apparent distress HEENT: Atraumatic, PERRLA, EOMI, Normocephalic Oral: Moist Mucosa Neck: Supple, No JVD Lungs: Clear to auscultation, Normal air movement, No rhonchi, No wheeze, No rales Cardiovascular: Regular rate, Regular Rhythm, Normal S1, Normal S2, No murmurs Abdomen: Soft, Non Tender, Non-Distended, No Hepato-splenomegaly Extremities: No edema, Capillary Refill Less than 3 Seconds Skin: No rashes, No breakdown Neurological: Neuro grossly intact, Sensory exam intact to light touch and pain Psych/Mental Status: Normal Affect, Appropriate Current Medications Acetaminophen (Tylenol) 650 mg PO Q4H PRN PRN PRN Reason: Temp > 100.4 F, pain 1-10/10 Al Hydroxide/Mg Hydroxide (Mylanta Ii) 30 ml PO Q6H PRN PRN PRN Reason: dyspesia Albuterol Sulfate (Ventolin Aerosols) 2.5 mg INHALATION Q2H PRN PRN PRN Reason: Dyspnea, wheezing Bisacodyl (Dulcolax) 10 mg RECTAL DAILY PRN PRN Reason: Constipation Buprenorphine HCl (Buprenorphine Hcl) 4 mg SL Q8H [facility]; Taper Stop: 08/09/20 14:14 Last Admin: 08/07/20 05:18 Dose: 4 mg Documented by: Buspirone HCl (Buspar) 10 mg PO TID SCOTT Last Admin: 08/07/20 05:18 Dose: 10 mg Documented by: Clonidine (Catapres) 0.1 mg PO Q8H PRN PRN PRN Reason: RESTLESSNESS Dicyclomine HCl (Bentyl) 20 mg PO Q6H PRN PRN PRN Reason: Abdominal Discomfort Last Admin: 08/06/20 22:03 Dose: 20 mg Documented by: Famotidine (Pepcid) 20 mg PO BID [facility] Last Admin: 08/06/20 22:03 Dose: 20 mg Documented by: Gabapentin (Neurontin) 300 mg PO Q8H PRN PRN PRN Reason: moderate to severe anxiety Hydralazine HCl (Apresoline Iv) 10 mg IV Q4H PRN PRN PRN Reason: SBP > 160 Hydroxyzine Pamoate (Vistaril Pamoate Capsule) 50 mg PO Q6H PRN PRN PRN Reason: mild anxiety Ibuprofen (Motrin) 600 mg PO Q8H PRN PRN PRN Reason: Pain Score 1-10/10 Loperamide HCl (Imodium) 2 mg PO Q4H PRN PRN PRN Reason: LOOSE STOOLS Methocarbamol (Methocarbamol) 1,500 mg PO Q6H PRN PRN PRN Reason: MUSCLE SPASM Last Admin: 08/06/20 22:03 Dose: 1,500 mg Documented by: Montelukast Sodium (Singulair) 10 mg PO DAILY [facility] Last Admin: 08/06/20 10:34 Dose: 10 mg Documented by: Nicotine (Nicoderm Cq (Pbkc)) 21 mg TRANSDERM. DAILY [facility] Last Admin: 08/06/20 10:34 Dose: 21 mg Documented by: Ondansetron HCl (Zofran Odt) 8 mg PO Q8H PRN PRN PRN Reason: NAUSEA Senna (Senokot) 2 tablet PO QHS PRN PRN PRN Reason: Constipation Sertraline HCl (Zoloft) 75 mg PO DAILY [facility] Last Admin: 08/06/20 10:33 Dose: 75 mg Documented by: Trazodone HCl (Desyrel) 100 mg PO QHS PRN PRN PRN Reason: INSOMNIA Last Admin: 08/06/20 22:03 Dose: 100 mg Documented by: STROKE Vital Signs/Narrative: Vital Signs Temp Pulse Resp BP Pulse Ox 08/07/20 08:12 16 08/07/20 08:08 97.7 F L 98 16 109/64 99 08/07/20 07:24 95 Medical Necessity - Tobacco Use Smoking Status: Current every day smoker Tobacco Use: Cigarettes Assessment/Plan All Active Problems Opiate withdrawal (Acute) Acute respiratory failure with hypoxia (Acute) Acute severe asthma (Acute) 1. Acute opiate withdrawal/polysubstance abuse/IV drug abuse/history of hepatitis C/possibly hepatitis B -Continue with the opiate withdrawal protocol -We will need to follow-up with rehab as an outpatient -Discussed with her that she can get treatment for hepatitis C as if she continues with IV drug use. She needs to follow-up with PCP 2. Tobacco abuse -Encourage cessation -Nicotine replacement if necessary 3. Chronic asthma -Stable -PRN inhaler 4. Anxiety/depression -Stable -Continue with her Zoloft and BuSpar regimen 5. GERD -Stable -Continue with Pepcid DVT: Ambulation Inpatient E&M: 33417 Subs Hosp L2
[2020-08-07] MEDS: Famotidine 20 MG Tablet PO ×2 (09:54→21:29)
[2020-08-07] MEDS: Sertraline 50 MG Tablet 75 MG PO (09:54)
[2020-08-07] MEDS: Montelukast 10 MG Tablet PO (09:54)
[2020-08-07 14:26] VITALS: BP 97/67; PULSE 92; RESP 16; TEMP 36.9; O2SAT 96
[2020-08-07 21:27] VITALS: BP 111/68; PULSE 103; RESP 14; TEMP 36.6; O2SAT 97
[2020-08-07] MEDS: traZODone 100 MG Tablet PO (21:29)
[2020-08-08] VITALS (7 sets, daily range): BP systolic 91–103; BP diastolic 59–69; PULSE 78–98; RESP 14–20; TEMP 36.7–36.9; O2SAT 90–97
[2020-08-08] MEDS: Methocarbamol 750 MG Tablet 1500 MG PO ×2 (05:39→22:57)
[2020-08-08] MEDS: busPIRone 5 MG Tablet 10 MG PO ×3 (05:39→22:48)
[2020-08-08] MEDS: Buprenorphine HCl 2 MG TAB.SUBL SL ×2 (05:39→14:28)
[2020-08-08] MEDS: Sertraline 50 MG Tablet 75 MG PO (09:53)
[2020-08-08] MEDS: Montelukast 10 MG Tablet PO (09:53)
[2020-08-08] MEDS: Famotidine 20 MG Tablet PO ×2 (09:53→22:48)
[2020-08-08] MEDS: hydrOXYzine PAM 25 MG Capsule 50 MG PO ×2 (09:56→22:57)
--- NOTE | 2020-08-08 10:32 | PN_ITS ---
Patient Problems: Active and Suspected Problems Opiate withdrawal (Acute) Subjective: Doing well, no issues overnight. Vitals/I&O's: Vital Signs Temp Pulse Resp BP Pulse Ox 98.4 F 78 14 91/63 97 08/08/20 05:36 08/08/20 05:36 08/08/20 05:36 08/08/20 05:36 08/08/20 05:36 Oxygen Delivery Method Room Air Weight: 110 lb 0.171 oz Body Mass Index (BMI) 20.1 Finger Stick Blood Glucose 80 Intake and Output for Last 24 Hours 08/06/20 08/07/20 08/08/20 23:59 23:59 23:59 Intake Total 172 / 2522 1200 / 1200 Balance 172 / 2521 1200 / 1200 General: Alert, Oriented x3, Cooperative, No apparent distress HEENT: Atraumatic, PERRLA, EOMI, Normocephalic Oral: Moist Mucosa Neck: Supple, No JVD Lungs: Clear to auscultation, Normal air movement, No rhonchi, No wheeze, No rales Cardiovascular: Regular rate, Regular Rhythm, Normal S1, Normal S2, No murmurs Abdomen: Soft, Non Tender, Non-Distended, No Hepato-splenomegaly Extremities: No edema, Capillary Refill Less than 3 Seconds Skin: No rashes, No breakdown Neurological: Neuro grossly intact, Sensory exam intact to light touch and pain Psych/Mental Status: Normal Affect, Appropriate Current Medications Acetaminophen (Tylenol) 650 mg PO Q4H PRN PRN PRN Reason: Temp > 100.4 F, pain 1-10/10 Al Hydroxide/Mg Hydroxide (Mylanta Ii) 30 ml PO Q6H PRN PRN PRN Reason: dyspesia Albuterol Sulfate (Ventolin Aerosols) 2.5 mg INHALATION Q2H PRN PRN PRN Reason: Dyspnea, wheezing Bisacodyl (Dulcolax) 10 mg RECTAL DAILY PRN PRN Reason: Constipation Buprenorphine HCl (Buprenorphine Hcl) 2 mg SL Q8H [facility]; Taper Stop: 08/09/20 14:14 Last Admin: 08/08/20 05:39 Dose: 2 mg Documented by: Buspirone HCl (Buspar) 10 mg PO TID [facility] Last Admin: 08/08/20 05:39 Dose: 10 mg Documented by: Clonidine (Catapres) 0.1 mg PO Q8H PRN PRN PRN Reason: RESTLESSNESS Dicyclomine HCl (Bentyl) 20 mg PO Q6H PRN PRN PRN Reason: Abdominal Discomfort Last Admin: 08/06/20 22:03 Dose: 20 mg Documented by: Famotidine (Pepcid) 20 mg PO BID [facility] Last Admin: 08/08/20 09:53 Dose: 20 mg Documented by: Gabapentin (Neurontin) 300 mg PO Q8H PRN PRN PRN Reason: moderate to severe anxiety Hydralazine HCl (Apresoline Iv) 10 mg IV Q4H PRN PRN PRN Reason: SBP > 160 Hydroxyzine Pamoate (Vistaril Pamoate Capsule) 50 mg PO Q6H PRN PRN PRN Reason: mild anxiety Last Admin: 08/08/20 09:56 Dose: 50 mg Documented by: Ibuprofen (Motrin) 600 mg PO Q8H PRN PRN PRN Reason: Pain Score 1-10/10 Loperamide HCl (Imodium) 2 mg PO Q4H PRN PRN PRN Reason: LOOSE STOOLS Methocarbamol (Methocarbamol) 1,500 mg PO Q6H PRN PRN PRN Reason: MUSCLE SPASM Last Admin: 08/08/20 05:39 Dose: 1,500 mg Documented by: Montelukast Sodium (Singulair) 10 mg PO DAILY [facility] Last Admin: 08/08/20 09:53 Dose: 10 mg Documented by: Nicotine (Nicoderm Cq (Pbkc)) 21 mg TRANSDERM. DAILY [facility] Last Admin: 08/08/20 09:52 Dose: 21 mg Documented by: Ondansetron HCl (Zofran Odt) 8 mg PO Q8H PRN PRN PRN Reason: NAUSEA Senna (Senokot) 2 tablet PO QHS PRN PRN PRN Reason: Constipation Sertraline HCl (Zoloft) 75 mg PO DAILY [facility] Last Admin: 08/08/20 09:53 Dose: 75 mg Documented by: Trazodone HCl (Desyrel) 100 mg PO QHS PRN PRN PRN Reason: INSOMNIA Last Admin: 08/07/20 21:29 Dose: 100 mg Documented by: Medical Necessity - Tobacco Use Smoking Status: Current every day smoker Tobacco Use: Cigarettes Assessment/Plan All Active Problems Opiate withdrawal (Acute) Acute respiratory failure with hypoxia (Acute) Acute severe asthma (Acute) 1. Acute opiate withdrawal/polysubstance abuse/IV drug abuse/history of hepatitis C/possibly hepatitis B -Continue with the opiate withdrawal protocol -We will need to follow-up with rehab either as an inpatient or an outpatient, referrals been made for inpatient residential treatment -Discussed with her that she can get treatment for hepatitis C as if she continues with IV drug use. She needs to follow-up with PCP 2. Tobacco abuse -Encourage cessation -Nicotine replacement if necessary 3. Chronic asthma -Stable -PRN inhaler 4. Anxiety/depression -Stable -Continue with her Zoloft and BuSpar regimen 5. GERD -Stable -Continue with Pepcid DVT: Ambulation Inpatient E&M: 24506 Subs Hosp L2
--- NOTE | 2020-08-08 10:32 | ADDICTION ---
This music writer met with patient in her room to finalize discharge plans. Patient has requested to directly admit into [facility] Residential treatment program and is waiting for final approval from Kiln Stacker. This music writer will inform hospital staff of approval when informed of decision. This music writer will coordinate transportation for patient to directly admit into residential treatment upon approval. Patient amiable to this plan.
[2020-08-08] MEDS: Albuterol 2.5 MG/3 ML VIAL.NEB. INHALATION (13:29)
--- NOTE | 2020-08-08 16:59 | CASEMGMT ---
Social Work Note SW received call from Nay at [facility] stating pt is able to straight admit to residential tomorrow. Madhuri Moran OLIVE GRADER, BUCKET PUSHER
[2020-08-08] MEDS: traZODone 100 MG Tablet PO (22:57)
[2020-08-08] MEDS: Ibuprofen 600 MG Tablet PO (22:57)
[2020-08-08] MEDS: Ondansetron ODT 4 MG Tablet 8 MG PO (22:58)
[2020-08-09 02:04] VITALS: BP 91/55; PULSE 88; RESP 16; TEMP 36.7; O2SAT 95
[2020-08-09] MEDS: Buprenorphine HCl 2 MG TAB.SUBL SL (02:09)
[2020-08-09 05:32] VITALS: BP 86/52; PULSE 64; RESP 16; TEMP 36.5; O2SAT 97
[2020-08-09] MEDS: busPIRone 5 MG Tablet 10 MG PO (05:37)
[2020-08-09 08:25] VITALS: BP 95/56; PULSE 78; RESP 16; TEMP 36.6; O2SAT 95
[2020-08-09] MEDS: Sertraline 50 MG Tablet 75 MG PO (08:29)
[2020-08-09] MEDS: Famotidine 20 MG Tablet PO (08:29)
[2020-08-09] MEDS: Montelukast 10 MG Tablet PO (08:29)
--- NOTE | 2020-08-09 09:23 | DCINST_ITS ---
- Discharge Diagnoses Current Active Problems: Current Active and Chronic Problems Opiate abuse, continuous (Chronic) Opiate withdrawal (Acute) Anxiety and depression (Chronic) Hepatitis C (Chronic) IV drug abuse (Chronic) Tobacco use (Chronic) You will use the following diet at home:: Regular Your food should be the consistency of: Regular Your liquids should be the consistency of: Regular/Thin Discharge Activity: Return to Normal Activity Call your doctor if you observe: Fever of 101 or Higher, Shortness of breath, Dizziness, Fainting spells, Swelling in the ankles, Chest pain, Increased palpitations (irregular heartbeat) Allergies/Adverse Reactions: Allergies No Known Allergies Allergy (Verified 03/15/20 19:12) Medications to take at Discharge Famotidine [Pepcid] 20 mg PO BID 01/26/16 Albuterol Sulfate [Albuterol Sulfate HFA] 2 puff PO BID PRN PRN 08/06/20 Budesonide/Formoterol 160/4.5 [Symbicort 160/4.5 Mcg Inhaler (SP)] 2 puff PO DAILY 08/06/20 Montelukast [Singulair] 10 mg PO DAILY 08/06/20 Sertraline HCl [Zoloft] 75 mg PO DAILY 08/06/20 busPIRone [Buspar] 10 mg PO TID 08/06/20 Primary Care Physician: Rose Stevens MD [Primary Care Provider] - Please follow up with your Primary Care Physician in: 3-5 days Test Results: Test results from this visit will be discussed in further detail at your follow- up appointment, if applicable. Please Follow Up With: 180
--- NOTE | 2020-08-09 10:16 | DS.PCM_ITS ---
Discharge Date and Diagnosis - Problem List Patient Problems: Active and Suspected Problems Opiate withdrawal (Acute) Date of Admission: 08/06/20 Date of Discharge: 08/09/20 - Primary Discharge Diagnosis Acute Problems: Active Problems Opiate withdrawal (Acute) - Secondary Discharge Diagnosis Chronic Problems: Chronic Problems Opiate abuse, continuous (Chronic) Anxiety and depression (Chronic) Hepatitis C (Chronic) IV drug abuse (Chronic) Tobacco use (Chronic) Obesity (BMI 30-39.9) (Chronic) Bronchial asthma (Chronic) Hospital Course and Treatment Operations: None Procedures: None Summary of Care Provided: Per HPI: The patient is a 29 y/o F w/ PMHx: Asthma, Anxiety and Depression, Allergic Rhinitis, Tobacco use, Polysubstance abuse (IV Fentanyl usually 1/2 g/day last used a prior to ED presentation, Meth normally used IV intermittently, use last approximately 2 days prior to current presentation), known hepatitis who presents to the [facility] ED on 08/06/20 w/ noted opiate withdrawal onset starting prior to ED presentation following last dose 4 to 5 hours prior to evaluation in the ED per patient report but notes that she has been in the ED for several hours and it was 1 to 2 hours prior to her initial ED presentation with now onset abdominal pain/cramping, generalized body aches and pains, rhinorrhea, fatigue, restless leg, sweating. Patient was previously admitted in October for opiate withdrawal. Asked why patient has returned and she notes t hat her daughter has an upcoming fifth birthday and she is interested in obtaining clean status. Talked at length about her hepatitis C status and possibly be strongly encouraging her to maintain clean status with ongoing documented meeting attendance for initiation of treatment for hepatitis. Work- up in the ED included T 97.4, heart rate 101, BP 107/82, respiratory rate 18, 99% on room air, CBC with WC 6.2, hemoglobin 12.2, platelet 290, CMP with glucose 117, AST/ALT 67/104, alk phos 70, negative testing, urinalysis with evidence dehydration 1.025, protein 30, ketone 5, occult blood 10, negative nitrite, leukocyte Estrace 500, RBC 10-25, no urine WBCs, 1+ urine bacteria noted, UDS with opiates, amphetamine, methamphetamine, cannabis, ethyl alcohol less than 3. Hospital Course: 1. Acute opiate withdrawal/polysubstance abuse/IV drug abuse/history of hepatitis C/possibly hepatitis B -Continue with the opiate withdrawal protocol -She is feeling well today, and she will be transported to inpatient residential treatment by 180 today -Discussed with her that she can get treatment for hepatitis C as if she continues with IV drug use. She needs to follow-up with her PCP 2. Tobacco abuse -Encourage cessation -Nicotine replacement if necessary 3. Chronic asthma -Stable -PRN inhaler 4. Anxiety/depression -Stable -Continue with her Zoloft and BuSpar regimen 5. GERD -Stable -Continue with Pepcid Patient Problems: Active and Suspected Problems Opiate withdrawal (Acute) - Physical Exam Vitals/I&O's: Vital Signs Temp Pulse Resp BP Pulse Ox 97.8 F 78 16 95/56 L 95 08/09/20 08:25 08/09/20 08:25 08/09/20 08:25 08/09/20 08:25 08/09/20 08:25 Oxygen Delivery Method Room Air Weight: 110 lb 0.171 oz Body Mass Index (BMI) 20.1 Finger Stick Blood Glucose 80 Intake and Output for Last 24 Hours 08/07/20 08/08/20 08/09/20 23:59 23:59 23:59 Intake Total 1722 / 2522 1600 / 1900 400 / 400 Balance 1722 / 2522 1600 / 1900 400 / 400 General: Alert, Oriented x3, Cooperative, No apparent distress HEENT: Atraumatic, PERRLA, EOMI, Normocephalic Oral: Moist Mucosa Neck: Supple, No JVD Lungs: Clear to auscultation, Normal air movement, No rhonchi, No wheeze, No rales Cardiovascular: Regular rate, Regular Rhythm, Normal S1, Normal S2, No murmurs Abdomen: Soft, Non Tender, Non-Distended, No Hepato-splenomegaly Extremities: No edema, Capillary Refill Less than 3 Seconds Skin: No rashes, No breakdown Neurological: Neuro grossly intact, Sensory exam intact to light touch and pain Psych/Mental Status: Normal Affect, Appropriate Current Medications Acetaminophen (Tylenol) 650 mg PO Q4H PRN PRN PRN Reason: Temp > 100.4 F, pain 1-10/10 Al Hydroxide/Mg Hydroxide (Mylanta Ii) 30 ml PO Q6H PRN PRN PRN Reason: dyspesia Albuterol Sulfate (Ventolin Aerosols) 2.5 mg INHALATION Q2H PRN PRN PRN Reason: Dyspnea, wheezing Last Admin: 08/08/20 13:29 Dose: 2.5 mg Documented by: Bisacodyl (Dulcolax) 10 mg RECTAL DAILY PRN PRN Reason: Constipation Buprenorphine HCl (Buprenorphine Hcl) 2 mg SL Q12H [facility]; Taper Stop: 08/09/20 14:14 Last Admin: 08/09/20 02:09 Dose: 2 mg Documented by: Buspirone HCl (Buspar) 10 mg PO TID [facility] Last Admin: 08/09/20 05:37 Dose: 10 mg Documented by: Clonidine (Catapres) 0.1 mg PO Q8H PRN PRN PRN Reason: RESTLESSNESS Dicyclomine HCl (Bentyl) 20 mg PO Q6H PRN PRN PRN Reason: Abdominal Discomfort Last Admin: 08/06/20 22:03 Dose: 20 mg Documented by: Famotidine (Pepcid) 20 mg PO BID [facility] Last Admin: 08/09/20 08:29 Dose: 20 mg Documented by: Gabapentin (Neurontin) 300 mg PO Q8H PRN PRN PRN Reason: moderate to severe anxiety Hydralazine HCl (Apresoline Iv) 10 mg IV Q4H PRN PRN PRN Reason: SBP > 160 Hydroxyzine Pamoate (Vistaril Pamoate Capsule) 50 mg PO Q6H PRN PRN PRN Reason: mild anxiety Last Admin: 08/08/20 22:57 Dose: 50 mg Documented by: Ibuprofen (Motrin) 600 mg PO Q8H PRN PRN PRN Reason: Pain Score 1-10/10 Last Admin: 08/08/20 22:57 Dose: 600 mg Documented by: Loperamide HCl (Imodium) 2 mg PO Q4H PRN PRN PRN Reason: LOOSE STOOLS Methocarbamol (Methocarbamol) 1,500 mg PO Q6H PRN PRN PRN Reason: MUSCLE SPASM Last Admin: 08/08/20 22:57 Dose: 1,500 mg Documented by: Montelukast Sodium (Singulair) 10 mg PO DAILY [facility] Last Admin: 08/09/20 08:29 Dose: 10 mg Documented by: Nicotine (Nicoderm Cq (Pbkc)) 21 mg TRANSDERM. DAILY [facility] Last Admin: 08/09/20 08:29 Dose: 21 mg Documented by: Ondansetron HCl (Zofran Odt) 8 mg PO Q8H PRN PRN PRN Reason: NAUSEA Last Admin: 08/08/20 22:58 Dose: 8 mg Documented by: Senna (Senokot) 2 tablet PO QHS PRN PRN PRN Reason: Constipation Sertraline HCl (Zoloft) 75 mg PO DAILY [facility] Last Admin: 08/09/20 08:29 Dose: 75 mg Documented by: Trazodone HCl (Desyrel) 100 mg PO QHS PRN PRN PRN Reason: INSOMNIA Last Admin: 08/08/20 22:57 Dose: 100 mg Documented by: Discharge Activity: Return to Normal Activity Call your doctor if you observe: Fever of 101 or Higher, Shortness of breath, Dizziness, Fainting spells, Swelling in the ankles, Chest pain, Increased palpitations (irregular heartbeat) Home Medications: Medications to take at Discharge Famotidine [Pepcid] 20 mg PO BID 01/26/16 Albuterol Sulfate [Albuterol Sulfate HFA] 2 puff PO BID PRN PRN 08/06/20 Budesonide/Formoterol 160/4.5 [Symbicort 160/4.5 Mcg Inhaler (SP)] 2 puff PO DAILY 08/06/20 Montelukast [Singulair] 10 mg PO DAILY 08/06/20 Sertraline HCl [Zoloft] 75 mg PO DAILY 08/06/20 busPIRone [Buspar] 10 mg PO TID 08/06/20 Primary Care Physician: Rose Stevens MD [Primary Care Provider] - Please follow up with your Primary Care Physician in: 3-5 days Please Follow Up With: 180 Disposition: Home Minutes spent on discharge:: 35 Patient Condition:: Stable Medical Necessity - Tobacco Use Smoking Status: Current every day smoker Tobacco Use: Cigarettes Meaningful Use Info Meaningful Use Diagnoses (Choose all that apply): None applicable Inpatient E&M: 42228 Disch Hosp
== END 2020-08-09 10:40 | disposition home or self-care (01) | DRG 773 ==
LOC: ED 08-06 01:11 → MS3 08-06 01:18
PROVIDERS: Admitting Provider Family Medicine; Emergency Provider Emergency Medicine; PCP Internal Medicine; Referring Provider Family Medicine; Visit Provider Family Medicine
DX: F11.23 Opioid dependence with withdrawal (principal); F15.10 Other stimulant abuse, uncomplicated; F12.10 Cannabis abuse, uncomplicated; F17.210 Nicotine dependence, cigarettes, uncomplicated; F32.9 Major depressive disorder, single episode, unspecified; F41.9 Anxiety disorder, unspecified; B18.2 Chronic viral hepatitis C; B19.10 Unspecified viral hepatitis B without hepatic coma; J45.909 Unspecified asthma, uncomplicated; K21.9 Gastro-esophageal reflux disease without esophagitis; E66.9 Obesity, unspecified; Z68.30 Body mass index [BMI] 30.0-30.9, adult; Z79.51 Long term (current) use of inhaled steroids
CPT/HCPCS: 80053; 80307; 80320; 81001; 81025; 85025; 94640; 99283; 99406; G0480

== ENCOUNTER 2020-08-31 14:45 | Emergency (ER) | payer MEDICAID, SELFPAY ==
[2020-08-06 01:54] VITALS: BMI 20.1
[2020-08-31 14:48] VITALS: BP 101/72; PULSE 99; RESP 16; TEMP 36.7; O2SAT 100; BMI 21.5
--- NOTE | 2020-08-31 14:58 | ED.DCSUM_ITS ---
- ER Visit Summary Date of Service: 08/31/20 Chief Complaint: Heroin overdose History of Present Illness: The patient is a [address] Arvizu. She reports that she was admitted to the hospital last month for fentanyl abuse. Today she injected heroin into her right wrist. She reports that she was sle eping at home and did not require Narcan. Patient reports she has a swollen area to her left hand that began a few days ago. She denies any constitutional symptoms. No fever, chills, nausea, or vom iting. Physical Examination: Vitals: Stable. Afebrile. General: Well-nourished and well-developed. Head: Normocephalic atraumatic. Neck: Supple, no lymphadenopathy. No JVD. Nontender. Cardiovascular: Regular rate and rhythm. No murmurs. Respiratory: No respiratory distress. Clear to auscultation bilaterally. Abdominal: Soft, nontender, nondistended, normal bowel sounds. No guarding, rebound, or peritoneal signs. Back: Nontender. Extremities: Track miller on the dorsum of her right wrist. These do not have. Affected. Over the thenar eminence of her left hand there is a 1 cm focal superficial abscess that appears to have foreign material present. There is no surrounding induration. There is no fluctuance.. Skin: Normal color, no rash. Neurologic: Alert and oriented ?3. Cranial nerves II through XII are intact. Normal strength and sensation. Psych: Normal affect. Emergency Department Course and Treatment: Patient had the small abscess on her left hand opened. She tolerated this well. She was treated with Bactrim. Treatment Plan: Patient will be discharged with Bactrim and instructed to follow-up with Dr. Smith in 3 days for a wound check. She will be discharged with Bactrim to gel. Return to the emergency department for any worsening symptoms. Disposition: To home in improved and stable condition. Impression: 1 1. Heroin overdose. 2. Superficial abscess left hand. 3. Incision and drainage. Procedure Note: Abscess was cleansed with chlorhexidine soap. Anesthetized with 1% lidocaine without epinephrine. An incision was made with an 11 scalpel blade. A moderate amount of pus was drained. Small black superficial foreign body removed. The wound was copiously irrigated with normal saline.The patient tolerated it well. This note was generated with Dragon dictation software. It may contain incorrect words, spelling, and punctuation that were not noted in review of the chart prior to signing ED Disposition - Plan for ED Patient: Instructions: ED Abuse Narcotic, ED Cyst Pilonidal Infected IandD Prescriptions: Smz/Tmp Ds [Bactrim Ds] 1 tab PO BID #14 tab Prescription Printed Referrals: Dariel Smith DO [STAFF PHYSICIAN] - 2 Days for wound check
[2020-08-31] MEDS: Smz/Tmp Ds Tablet 1 TABLET PO (15:05)
--- NOTE | 2020-08-31 15:27 | CM.ED ---
Social Work This family welfare social work professor going to see patient. Per medical team patient going to alf after discharge from ER. Patient discharged at this time. Sarita Montgomery MSW, ANGELICA-S
[2020-08-31] MEDS: Acetaminophen 500 MG Tablet 1000 MG PO (15:33)
== END 2020-08-31 15:38 ==
PROVIDERS: Emergency Provider Emergency Medicine; PCP Internal Medicine
DX: T40.1X1A Poisoning by heroin, accidental (unintentional), initial encounter (principal); Y92.9 Unspecified place or not applicable; L02.512 Cutaneous abscess of left hand; Z72.0 Tobacco use
CPT/HCPCS: 10060; 99285

== ENCOUNTER 2020-10-05 10:31 | Emergency (ER) | payer MEDICAID, SELFPAY ==
[2020-10-05 10:33] VITALS: BP 110/78; PULSE 105; RESP 18; TEMP 36.1; O2SAT 100; BMI 20.5
--- NOTE | 2020-10-05 10:48 | ED.DCSUM_ITS ---
History of Present Illness Informant: Patient Narrative: 29-year-old female with past medical history of hepatitis A, hepatitis B, opioid abuse presents from the longterm for medical clearance before being transferred to a psychiatric facility. She expressed suicidal ideation to the staff. Here she states she has SI but no plan. She is not homicidal. She is also concerned about several abscesses on her fingers. She adamantly denies injecting drugs. She states she thinks she might have splinters in my fingers. Denies fevers, chills, nausea, vomiting, chest pain, shortness of breath, cough, abdominal pain, diarrhea, or urinary symptoms. <Sandy Chiu - Last Filed: 10/05/20 12:54> <Chris Loomis - Last Filed: 10/05/20 14:23> Chief Complaint: Mental Health Past Medical History Past Medical History: - - Hepatitis A/B, opioid abuse Surgical History: - - x1. Smoking Status: Current every day smoker - Family History Maternal Family History: Reports: Diabetes, Heart Disease Paternal Family History: Reports: COPD, - - Father with a history of substance abuse, alcohol abuse. Sibling Family History: Reports: - - Her sister is diabetic. <Sandy Chiu - Last Filed: 10/05/20 12:54> <Chris Loomis - Last Filed: 10/05/20 14:23> - Allergies and Home Meds Allergies/Adverse Reactions: Allergies No Known Allergies Allergy (Verified 10/05/20 11:41) Primary Care Physician: Rose Stevens MD [Primary Care Provider] - Review of Systems General: Denies: Chills, Fever, Sweats Eyes: Denies: Visual changes - bilaterally, Diplopia ENT: Denies: Rhinorrhea, Sore throat Cardiovascular: Denies: Chest pain, Palpitations Respiratory: Denies: Dyspnea, Cough, Dyspnea on exertion Gastrointestinal: Denies: Abdominal pain, Nausea, Vomiting, Diarrhea, Melena, Hematochezia Genitourinary: Denies: Dysuria, Hematuria, Frequency Musculoskeletal: Denies: Back pain, Extremity Pain Skin: Reports: Abscess Neurological: Denies: Headache, Weakness, Numbness Psych: Denies: Suicidal thoughts, Suicidal ideations <Sandy Chiu - Last Filed: 10/05/20 12:54> Physical Exam Vital Signs/Narrative: Vital Signs Temp Pulse Resp BP Pulse Ox 10/05/20 10:33 97 F L 105 H 18 110/78 100 General: Well nourished, Well developed, No Acute Distress Head: Normocephalic, Atraumatic Eyes: Perrl, EOMI ENT: Moist mucous membranes, No rhinorrhea Neck: Supple, Nontender Cardiovascular: Regular rate, Regular rhythm, No murmurs Respiratory: No distress, CTA bilaterally, Chest nontender Abdomen: Soft, Nontender, Nondistended, Normal bowel sounds Extremities: - - Large fluctuant abscess on plantar surface of left thumb pad with edematous/erythematous digit. Smaller localized 0.5 cm abscess on plantar surface of left pinky finger. Abscess 2x3 cm abscess on plantar surface of right dorsal middle finger with surrounding edema/erythema of digit. Skin: - <Sandy Chiu - Last Filed: 10/05/20 12:54> Vital Signs/Narrative: Vital Signs Temp Pulse Resp BP Pulse Ox 10/05/20 10:33 97 F L 105 H 18 110/78 100 <Chris Loomis - Last Filed: 10/05/20 14:23> Diagnostic/Tx/Re-eval Laboratory Data 10/05/20 10/05/20 10/05/20 11:15 11:15 11:15 WBC 12.2 H RBC 4.23 Hgb 12.7 Hct 39.8 MCV 94.1 MCH 30.0 MCHC 31.9 L RDW Std Deviation 46.6 H RDW Coeff of Tiffanie 13.6 Plt Count 537 H MPV 8.7 Immature Gran % (Auto) 0.500 Neut % (Auto) 65.9 Lymph % (Auto) 26.5 [place] % (Auto) 6.1 Eos % (Auto) 0.3 Baso % (Auto) 0.7 Absolute Neuts (auto) 8.0 H Absolute Lymphs (auto) 3.22 Nucleated RBC % 0 Sodium 138 Potassium 4.0 Chloride 105 Carbon Dioxide 29.0 Anion Gap 4 L BUN 12 Creatinine 0.66 Estim Creat Clear Calc 100.37 Est GFR (MDRD) Af Amer 138 Est GFR (MDRD) Non-Af 114 BUN/Creatinine Ratio 18.3 Glucose 86 Calcium 8.9 Total Bilirubin 0.40 AST 24 ALT 189 H Alkaline Phosphatase 105 Total Protein 8.9 H Albumin 3.3 Globulin 5.6 H Albumin/Globulin Ratio 0.6 L Urine Opiates Screen Urine Methadone Screen Ur Barbiturates Screen Ur Phencyclidine Scrn Ur Amphetamines Screen U Methamphetamin-MDMA U Benzodiazepines Scrn Urine Cocaine Screen U Cannabinoids Screen Ur Drug Screen Comment Ethyl Alcohol 9.0 10/05/20 11:35 WBC RBC Hgb Hct MCV MCH MCHC RDW Std Deviation RDW Coeff of Tiffanie Plt Count MPV Immature Gran % (Auto) Neut % (Auto) Lymph % (Auto) [place] % (Auto) Eos % (Auto) Baso % (Auto) Absolute Neuts (auto) Absolute Lymphs (auto) Nucleated RBC % Sodium Potassium Chloride Carbon Dioxide Anion Gap BUN Creatinine Estim Creat Clear Calc Est GFR (MDRD) Af Amer Est GFR (MDRD) Non-Af BUN/Creatinine Ratio Glucose Calcium Total Bilirubin AST ALT Alkaline Phosphatase Total Protein Albumin Globulin Albumin/Globulin Ratio Urine Opiates Screen NEGATIVE Urine Methadone Screen NEGATIVE Ur Barbiturates Screen NEGATIVE Ur Phencyclidine Scrn NEGATIVE Ur Amphetamines Screen NEGATIVE U Methamphetamin-MDMA NEGATIVE U Benzodiazepines Scrn NEGATIVE Urine Cocaine Screen NEGATIVE U Cannabinoids Screen NEGATIVE Ur Drug Screen Comment Ethyl Alcohol - Rhythm Strip Rhythm Strip: Sinus Rhythm Rate: 84 - Medical Decision Making Patient was brought in by PD for medical clearance for mental health admission. She has a history of depression/anxiety and has suicidal ideation with no plan. Her only complaint are abscesses on her left thumb, left pinky, and right middle finger. She has a normal cardiac exam with no murmurs. She has no constitutional symptoms that concern for endocarditis. I performed a digital block of her left thumb and right middle fingers with 3 cc of 1% lidocaine each. The left thumb was incised with 11 blade scalpel with a large amount of purulent material expressed. Wound culture of left thumb was sent. The left pinky was locally anesthetized with 1 cc of 1% lidocaine and incised with a small amount of purulent discharge. The right middle finger was incised and gave a moderate amount of blood and purulent discharge. The right middle finger that looks most concerning. She does have full range of motion of all digits and I am no concern for it tenosynovitis. She was treated with IV Vanco and Zosyn. Case discussed with orthopedics will be on-call if she does not respond to antibiotics. Hospitalist was agreeable to admission and she was transferred to the floor in stable condition. <Sandy Chiu - Last Filed: 10/05/20 12:54> - Medical Decision Making Seeing the patient with our physician credit control assistant. Patient brought in by deputies for medical clearance for mental health admission. Patient has underlying psychiatric history and also history of drug abuse. Her only complaint is that she has swelling of her left thumb, left small finger and right long finger. She she denies injecting in those areas even though it is very suspicious that she is doing so. M: Young female no acute distress vital signs stable afebrile. HEENT exam unremarkable. Neck nontender. Lungs clear to auscultation. Heart regular rhythm I do not appreciate any murmur. Abdomen soft nontender. Extremities moves all 4. Neurovascular intact. Her left thumb is swollen has obvious pus under the skin at the distal pad on the palmar aspect. She is able to flex and extend the thumb it is swollen and red. Currently does not look like there is a tenosynovitis. But there is obvious infection. She also has a pocket of pus on her right small finger midportion of the palmar aspect and the need to be drained. The hand is neurovascular intact. There is no lymphangitic streaking. There is no axillary lymphadenopathy. The right hand she has a very swollen sausage digit left long finger. Again obviously infected. Again possible need to be drained on the palmar aspect. Again currently no tenosynovitis. No lymphangitic streaking no axillary lymphadenopathy. Neurologic exam she is awake and alert. Patient will get ED mental health labs. She is going to need to be admitted for IV antibiotics for the infections in her fingers. And may need further evaluation if this does not improve for potentially surgery but only she needs at this time. She will be started on IV antibiotics. We will I&D all 3 of the digits 2 on the left one on the right hand to drain the pus. Speak to the hospitalist about admission. Impressions: 1. Suicidal ideation with acute exacerbation underlying psychiatric illness 2. Finger infections of the left thumb, left small finger and right long finger 3. Incision and drainage of abscesses to her left thumb, left small finger and right long finger by ER. 4. Hx of drug abuse While the patient was waiting for admission she left the emergency department and return. Nurses notified the Career Coach's department will try to find her and bring her back for admission. <Chris Loomis - Last Filed: 10/05/20 14:23> ED Disposition <Sandy Chiu - Last Filed: 10/05/20 12:54> <Chris Loomis - Last Filed: 10/05/20 14:23> - Plan for ED Patient: Disposition: Acute [facility] Diagnosis: Abscess of finger of left hand, Suicidal ideation Referrals: Rose Stevens MD [Primary Care Provider] -
--- NOTE | 2020-10-05 11:15 | CM.ED ---
SOCIAL WORK Discussed with Crisis. Patient is from longterm. Crisis has completed assessment. Patient requires medical clearance for [facility]. Patient will return to longterm until bed becomes available at [facility]. Plan: Medical Clearance for [facility] Jj Smith, ELECTRIC METER INSTALLER, CAR PUSHER
[2020-10-05 11:27] LABS: Absolute Lymphocyte Count 3.22 X10^3/uL (0.83-4.51); Basophil# 0.08 X10^3/uL; Basophil% 0.7 % (0-1); Eosinophil# 0.04 X10^3/uL; Eosinophils% 0.3 % (0-5); Hematocrit 39.8 % (37-47); Hemoglobin 12.7 g/dL (12.0-15.0); Lymphocyte # 3.22 X10^3/ul (4.0); Lymphocyte % 26.5 % (19-41); Mean Corp Hgb Conc 31.9 g/dL (32-36); Mean Corpuscular Volume 94.1 fL (81-99); Mean Platelet Vol. 8.7 fl (6.2-12.0); Monocyte# 0.74 X10^3/uL; Monocyte% 6.1 % (0-10); NRBC Flagged by Analyzer 0 % (0-5); Neutrophil # 8.01 X10^3/uL (2.7-7.7); Neutrophil % 65.9 % (47-70); Platelet Count 537 K/mm3 (150-450); RBC Distribution Width CV 13.6 % (11.6-14.6); RBC Distribution Width SD 46.6 fl (35.1-43.9); Red Blood Count 4.23 M/mm3 (4.2-5.4); White Blood Count 12.2 K/mm3 (4.4-11.0)
--- NOTE | 2020-10-05 11:27 | ED.RN ---
PER DR MENENDEZ NO SITTER NEEDED
--- NOTE | 2020-10-05 11:30 | CM.ED ---
SOCIAL WORK Updated by Dr. Loomis, patient to be admitted. Call to Crisis to update. Sherri reports will fax over Crisis assessment to add to chart. Jj Smith, CHIEF LIBRARIAN BRANCH, APARTMENT LEASING MANAGER
[2020-10-05] MEDS: Lidocaine/Epi/Tetracaine 50 ML 1 APPLIC TOPICAL (11:34)
[2020-10-05 11:42] LABS: ALB/GLOB Ratio 0.6 RATIO (0.9-2.4); AST(SGOT) 24 U/L (15-37); Alanine Aminotransfer ALT/SGPT 189 U/L (13-56); Albumin, Serum 3.3 g/dL (3.2-5.0); Alkaline Phosphatase 105 U/L (45-117); Anion Gap 4 (5-15); BUN 12 mg/dL (7-18); BUN/Creat Ratio 18.3 RATIO (10-20); Calcium,Total 8.9 mg/dL (8.5-10.1); Chloride 105 mmol/L (98-107); Creatinine, Serum 0.66 mg/dL (0.55-1.02); EST Glomerular Filtration Rate 114 mL/min (>60); Est Glom Filt Rate - Afr Amer 138 mL/min (>60); Estimated Creatinine Clearance 100.37 ml/min; Globulin 5.6 g/dL (2.2-4.2); Glucose 86 mg/dL (74-106); Protein, Total 8.9 g/dL (6.4-8.2); Sodium Level 138 mmol/L (136-145)
[2020-10-05 12:10] LABS: Amphetamine Urine VISTA NEGATIVE (<1000 ng/mL); Barbiturate Urine VISTA NEGATIVE (< 200 ng/mL); Benzodiazepine Urine VISTA NEGATIVE (< 200 ng/mL); Cocaine Urine VISTA NEGATIVE (< 300 ng/mL); Ecstacy Urine VISTA NEGATIVE (< 500 ng/mL); Methadone Urine VISTA NEGATIVE (< 300 ng/mL); PCP Urine VISTA NEGATIVE (< 25 ng/mL); THC Urine VISTA NEGATIVE (< 50 ng/mL); Vista UDS pH Range 5
--- NOTE | 2020-10-05 13:09 | CM.ED ---
SOCIAL WORK Updated by nursing, patient has been bonded. Officers have left. Call to Crisis, spoke with Digna. Per Digna, Crisis will re-evaluate prior to discharge once patient is medically cleared. Staff updated. Jj Smith, EVP, MARRIAGE AND FAMILY SOCIAL WORKER
[2020-10-05] MEDS: Acetaminophen 500 MG Tablet 1000 MG PO (13:12)
[2020-10-05 13:17] VITALS: BP 116/75; PULSE 88; RESP 16; TEMP 37.3; O2SAT 100
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
--- NOTE | 2020-10-05 13:51 | CM.ED ---
SOCIAL WORK Call to Crisis, spoke with Digna. Updated Crisis that patient has left AMA after being bonded. No [place] Slip has been completed at this time. Per Crisis, will follow up with the snf. Jj Smith, ACCOUNT MANAGER SALES REPRESENTATIVE, RELOCATION ASSOCIATE
--- NOTE | 2020-10-05 13:51 | CM.ED ---
SOCIAL WORK Call to Crisis, spoke with Updated Crisis that patient has left AMA after being bonded. No [place] Slip has been completed at this time. Per Crisis, will follow up with the shelter. Jj Smith, TECHNICAL APPLICATIONS SCIENTIST, FORM TAMPING MACHINE OPERATOR
--- NOTE | 2020-10-05 14:39 | CM.ED ---
SOCIAL WORK Received copy of [place] Slip signed by Sgt. Harper dated 10/04/2020 at 3:50p. Patient left AMA, [place] [employer] notified. Digna with Crisis updated. Digna to follow up with the residential. Jj Smith, JOCKEY VALET, TELEPHONE LINEWORKER
== END 2020-10-05 13:30 | disposition left against medical advice (07) ==
PROVIDERS: Emergency Provider Physician Assistant; PCP Internal Medicine
DX: R45.851 Suicidal ideations (principal); L02.512 Cutaneous abscess of left hand; L02.511 Cutaneous abscess of right hand; F32.9 Major depressive disorder, single episode, unspecified; F41.9 Anxiety disorder, unspecified; F11.10 Opioid abuse, uncomplicated; F17.200 Nicotine dependence, unspecified, uncomplicated
CPT/HCPCS: 26010 ×3; 80053; 80307; 80320; 85025; 87070; 87077; 87186; 87205; 93005; 96365; 99285; J7030; A4216; G0480

== ENCOUNTER 2021-01-05 09:12 | Emergency (ER) | payer MEDICAID, SELFPAY ==
[2021-01-05 09:13] VITALS: BP 102/66; PULSE 135; RESP 18; TEMP 38.8; O2SAT 96; BMI 20.5
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
[2021-01-05 10:16] VITALS: BP 113/76; PULSE 117; RESP 14; TEMP 37.6; O2SAT 98
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
[2021-01-05] MEDS: Acetaminophen 325 MG Tablet 650 MG PO (10:24)
[2021-01-05] MEDS: 0.9% Normal Saline 1,000 ML 1000 ML IV (10:24)
[2021-01-05 10:39] LABS: Absolute Lymphocyte Count 1.99 X10^3/uL (0.83-4.51); Absolute Neutrophil Count 13.6 X10^3/uL (2.0-7.7); Basophil# 0.09 X10^3/uL; Basophil% 0.5 % (0-1); Eosinophil# 0.03 X10^3/uL; Eosinophils% 0.2 % (0-5); Hematocrit 34.4 % (37-47); Hemoglobin 11.5 g/dL (12.0-15.0); Lymphocyte # 1.99 X10^3/ul (4.0); Lymphocyte % 11.3 % (19-41); Mean Corp Hgb Conc 33.4 g/dL (32-36); Mean Corpuscular Hgb 29.5 pg (27.0-32.0); Mean Corpuscular Volume 88.2 fL (81-99); Mean Platelet Vol. 9.5 fl (6.2-12.0); Monocyte# 1.77 X10^3/uL; Monocyte% 10.1 % (0-10); NRBC Flagged by Analyzer 0 % (0-5); Neutrophil # 13.59 X10^3/uL (2.7-7.7); Neutrophil % 77.1 % (47-70); POSITIVE DIFFERENTIAL YES; Platelet Count 313 K/mm3 (150-450); RBC Distribution Width CV 13.5 % (11.6-14.6); RBC Distribution Width SD 43.6 fl (35.1-43.9); White Blood Count 17.6 K/mm3 (4.4-11.0)
[2021-01-05 10:47] LABS: Internal QC Validated? YES +Cl - CLEAR BKGD; Pregnancy, Serum, hCG Quali. NEGATIVE Negative
[2021-01-05 10:52] LABS: Anion Gap 5 (5-15); BUN 9 mg/dL (7-18); BUN/Creat Ratio 15.6 RATIO (10-20); Calcium,Total 8.7 mg/dL (8.5-10.1); Chloride 98 mmol/L (98-107); Creatinine, Serum 0.58 mg/dL (0.55-1.02); EST Glomerular Filtration Rate 132 mL/min (>60); Est Glom Filt Rate - Afr Amer 159 mL/min (>60); Estimated Creatinine Clearance 113.19 ml/min; Glucose 155 mg/dL (74-106); Potassium 3.6 mmol/L (3.5-5.1); Sodium Level 131 mmol/L (136-145)
[2021-01-05 10:56] LABS: Differential Indicated SCAN CRITERIA MET
[2021-01-05 11:00] VITALS: BP 110/67; PULSE 110; RESP 14; TEMP 37.1; O2SAT 97
[2021-01-05 11:25] LABS: Differential Comment SCANNED
[2021-01-05 11:44] LABS: Mucous, Urine 0 SEEN /hpf (<or=2+)
[2021-01-05 11:45] LABS: Color, Urine Yellow (Yellow); Glucose, Dipstick Normal (Normal); Ketone-Dipstick Negative (Negative); Leukocyte Esterase-Dipstick 500 /ul (Negative); Nitrite-Dipstick Negative (Negative); Occult Blood-Urine 25 /ul (Negative); Protein-Dipstick 30 mg/dl (Negative); Specific Gravity, Urine 1.025 (1.002-1.030); Urine Clarity Clear (Clear); Urine Urobilinogen 4 mg/dl (Normal)
[2021-01-05 11:47] LABS: Urine Bilirubin Dipstick 1 mg/dL (Negative)
[2021-01-05 11:54] LABS: Bacteria 1+ /hpf (None Seen); Red Blood Cells-Urine 5-10 SEEN /hpf (0-5); Squamous Epithelial Cells - UA 0-5 SEEN /hpf (5-10); White Blood Cells 10-25 SEEN /hpf (0-5)
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
[2021-01-05] MEDS: Smz/Tmp Ds Tablet 1 TABLET PO (12:30)
--- NOTE | 2021-01-06 00:32 | ED.RN ---
POSITIVE BLOOD CULTURES REPORTED TO . PHYSICIAN REQUESTS PT TO BE CALLED IMMEDIATELY TO BE ADMITTED FOR IV ABX. THIS RN CALLED THE PHONE NUMBER LISTED IN CHART PRIMARY NUMBER. PTS MOTHER ANSWERED THE PHONE AND STATES PT IS NOT HOME TO TAKE THE CALL. MOTHER IS GIVEN THE ER CALL BACK NUMBER AND URGED TO HAVE DAUGHTER CALL US BACK SOON POSSIBLE. MOTHER VERBALIZES UNDERSTANDING
[2021-01-07 14:05] LABS: Pathologist Review Reviewed
== END 2021-01-05 12:36 | disposition home or self-care (01) ==
PROVIDERS: Emergency Provider Emergency Medicine; PCP Internal Medicine
DX: S43.402A Unspecified sprain of left shoulder joint, initial encounter (principal); S43.401A Unspecified sprain of right shoulder joint, initial encounter; Y04.0XXA Assault by unarmed brawl or fight, initial encounter; Y93.89 Activity, other specified; Y92.9 Unspecified place or not applicable; Y99.9 Unspecified external cause status; N39.0 Urinary tract infection, site not specified; Z72.0 Tobacco use
CPT/HCPCS: 36415; 71045; 73030; 80048; 81001; 83605; 84703; 85025; 87040; 87077; 87149; 87186; 87426; 96360; 99285; J7030

== ENCOUNTER 2021-02-01 11:15 | Emergency (ER) | payer MEDICAID, SELFPAY ==
[2021-02-01 11:16] VITALS: BP 115/70; PULSE 87; RESP 16; TEMP 36.8; O2SAT 99; BMI 20.5
[2021-02-01 11:27] VITALS: BP 96/64; PULSE 150; RESP 12; O2SAT 100
--- NOTE | 2021-02-01 12:00 | ED.DCSUM_ITS ---
- ER Visit Summary Date of Service: 02/01/21 Chief Complaint: Lower extremity cellulitis History of Present Illness: The patient is a 30 F who presents with cellulitis to her lower extremities that has been getting worse over the past 2 days. Patient describes her pain as aching and burning. Patient states it is worse with walking. Patient admits to redness and swelling to both lower extremities. Patient denies any discharge or drainage. Patient states she has had a fever of 104 at home. Patient also admits to subjective chills. Patient is currently on clindamycin and doxycycline for bacteremia. Patient had blood cultures drawn on 01/05/2021 which were positive for MRSA. Patient went to another hospital on 01/23/2021 and was started on clindamycin and doxycycline. Patient states she is still taking these. Patient also admits to daily heroin use. Patient states she has a rehab facility that she wants to go to. Patient states she is trying to get in there soon. Physical Examination: Vital signs are stable. Patient is afebrile. Patient is in no acute distress. Heart was regular rate and rhythm. Lungs are clear and equal bilaterally. Abdomen is soft. Bowel sounds are normal. There is no tenderness. There is no rebound or guarding noted. Cranial nerves II through XII are intact. There are no focal motor or sensory deficits noted. Extremities are intact. There is some erythema and warmth over the lower legs bilaterally. There is tenderness to palpation anteriorly over the areas of the rash. There are no vesicles or pustules. There is no discharge or drainage. There is no evidence of any abscess formation. Rectal exam showed good sphincte r tone. There is minimal stool. Hemoccult was negative. Test Results: CBC shows hemoglobin of 7.1 and hematocrit 21.8. This was low compared to previous report on 01/05/2021. Comprehensive metabolic profile showed a mild hyponatremia of 130 and chloride of 97. Urinalysis showed leukocyte esterase of 500. There is no sign of urinary tract infection. Emergency Department Course and Treatment: Patient was advised of her findings. I discussed admission to the hospital. Patient does not want to be admitted to the hospital at this time. Patient prefers to go home. Her prior blood cultures show that the MRSA is sensitive to clindamycin and doxycycline. Patient was instructed to continue her antibiotics until gone. Patient was given a prescription for iron. Patient was instructed to follow-up with her primary care physician in 5 to 7 days. Patient understood and was agreeable with the plan. All questions were answered. Disposition: Discharge home Impression: 1. Cellulitis bilateral lower extremities 2. Anemia This note was generated with [employer] dictation software. It may contain incorrect words, spelling, and punctuation that were not noted in review of the chart prior to signing ED Disposition - Plan for ED Patient: Disposition: Home or Assisted Living Diagnosis: Cellulitis, Anemia Instructions: ED Anemia, Type Not Specified (Adult), ED Cellulitis Prescriptions: Ferrous Sulfate [Iron] 325 mg PO DAILY #30 tab Transmission Status: Pending to [facility] Referrals: Rose Stevens MD [Primary Care Provider] - 3-5 Days Additional Instructions: Finish your antibiotics until they are gone.
[2021-02-01 12:39] LABS: Absolute Lymphocyte Count 2.18 X10^3/uL (0.83-4.51); Absolute Neutrophil Count 8.6 X10^3/uL (2.0-7.7); Basophil# 0.04 X10^3/uL; Basophil% 0.3 % (0-1); Eosinophil# 0.06 X10^3/uL; Eosinophils% 0.5 % (0-5); Hematocrit 21.8 % (37-47); Hemoglobin 7.1 g/dL (12.0-15.0); Lymphocyte # 2.18 X10^3/ul (4.0); Lymphocyte % 18.6 % (19-41); Mean Corp Hgb Conc 32.6 g/dL (32-36); Mean Corpuscular Hgb 29.5 pg (27.0-32.0); Mean Corpuscular Volume 90.5 fL (81-99); Mean Platelet Vol. 8.9 fl (6.2-12.0); Monocyte# 0.71 X10^3/uL; NRBC Flagged by Analyzer 0 % (0-5); Neutrophil # 8.59 X10^3/uL (2.7-7.7); Neutrophil % 73.2 % (47-70); Platelet Count 375 K/mm3 (150-450); RBC Distribution Width CV 13.6 % (11.6-14.6); RBC Distribution Width SD 44.9 fl (35.1-43.9); Red Blood Count 2.41 M/mm3 (4.2-5.4); White Blood Count 11.7 K/mm3 (4.4-11.0)
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
[2021-02-01 12:59] LABS: ALB/GLOB Ratio 0.3 RATIO (0.9-2.4); AST(SGOT) 41 U/L (15-37); Alanine Aminotransfer ALT/SGPT 42 U/L (13-56); Albumin, Serum 1.7 g/dL (3.2-5.0); Alkaline Phosphatase 76 U/L (45-117); Anion Gap 7 (5-15); BUN 12 mg/dL (7-18); BUN/Creat Ratio 19.9 RATIO (10-20); Calcium,Total 7.8 mg/dL (8.5-10.1); Chloride 97 mmol/L (98-107); EST Glomerular Filtration Rate 125 mL/min (>60); Est Glom Filt Rate - Afr Amer 151 mL/min (>60); Estimated Creatinine Clearance 109.42 ml/min; Globulin 5.6 g/dL (2.2-4.2); Glucose 149 mg/dL (74-106); Potassium 4.2 mmol/L (3.5-5.1); Protein, Total 7.3 g/dL (6.4-8.2); Sodium Level 130 mmol/L (136-145)
[2021-02-01 13:00] LABS: Mucous, Urine 0 SEEN /hpf (<or=2+); Squamous Epithelial Cells - UA 0 SEEN /hpf (5-10)
[2021-02-01 13:10] VITALS: BP 101/86; PULSE 146; RESP 18; O2SAT 98
[2021-02-01 13:10] LABS: Lactic Acid 1.9 mmol/L (0.4-1.9)
--- NOTE | 2021-02-01 13:10 | ED.RN ---
pt heart rate 140's dr choe notified. pt anxious and tearful. requesting ed to call mother. assisted with using phone in room. no further needs voiced.
[2021-02-01 13:12] LABS: Color, Urine Yellow (Yellow); Glucose, Dipstick Normal (Normal); Ketone-Dipstick Negative (Negative); Leukocyte Esterase-Dipstick 500 /ul (Negative); Nitrite-Dipstick Negative (Negative); Occult Blood-Urine 150 /ul (Negative); Protein-Dipstick 30 mg/dl (Negative); Urine Bilirubin Dipstick Negative (Negative); Urine Clarity Clear (Clear); Urine Urobilinogen Normal (Normal)
[2021-02-01 13:23] LABS: Bacteria RARE /hpf (None Seen); Red Blood Cells-Urine 0-5 SEEN /hpf (0-5); White Blood Cells 0-5 SEEN /hpf (0-5)
[2021-02-01] MEDS: 0.9% Normal Saline 1,000 ML 999 ML IV (14:15)
[2021-02-01 15:16] VITALS: BP 113/71; PULSE 131; RESP 23; O2SAT 98
[2021-02-01 16:10] VITALS: BP 106/79; PULSE 124; RESP 16; O2SAT 95
--- NOTE | 2021-02-05 04:58 | ED.RN ---
BLOOD CULTURE RESULTS REPORTED TO .
== END 2021-02-01 16:11 | disposition home or self-care (01) ==
PROVIDERS: Emergency Provider Emergency Medicine; PCP Internal Medicine
DX: L03.116 Cellulitis of left lower limb (principal); L03.115 Cellulitis of right lower limb; D64.9 Anemia, unspecified; F17.200 Nicotine dependence, unspecified, uncomplicated
CPT/HCPCS: 36415; 71045; 80053; 81001; 82274; 83605; 85025; 86850; 86900; 86901; 87040; 87077; 87186; 87426; 96360; 96361; 99284

== ENCOUNTER 2021-02-26 09:40 | Emergency (ER) | payer MEDICAID, SELFPAY ==
[2021-02-26 09:41] VITALS: BP 98/63; PULSE 107; RESP 16; TEMP 36.7; O2SAT 97; BMI 22.5
--- NOTE | 2021-02-26 10:12 | ED.VISSUMM ---
- ER Visit Summary Date of Service: 02/26/21 Chief Complaint: I do not feel good History of Present Illness: The patient is a 30 F who presents with not feeling well for the past 2 days. Patient was released from [facility] today. Patient was arrested for use of heroin. Patient states she has not used heroin in the last 4 days. Patient admits to generalized body pain. Patient describes it as sharp. Patient states it is diffuse. Patient states it is worse with any movement. Patient states nothing seems to help with it. Patient denies any fevers or chills. Patient denies any nausea or vomiting. Nuys any chest pain or shortness of breath. Physical Examination: Vital signs are stable except for slightly low blood pressure of 98/63 and a mild tachycardia of 107. Patient is afebrile. Patient is in no acute distress. Oral mucosa is pink and moist. Neck is supple. Trachea is midline. There is no JVD. Heart was regular and tachycardic. Lungs are clear and equal bilaterally. Abdomen is soft. Bowel sounds are normal. There is mild diffuse tenderness. There is no rebound or guarding noted. Cranial nerves II through XII are intact. There are no focal motor or sensory deficits noted. Test Results: Basic labs were ordered. These were unable to be obtained. Patient is refusing any further attempts at lab drawings. Patient is also refusing any other IV attempts. Emergency Department Course and Treatment: Patient was ordered IV fluids but IV was unable to be established. Patient is refusing any other IV attempts. Patient was given a dose of ibuprofen here. Patient was instructed to drink plenty of fluids. Patient was instructed to follow-up with her primary care physician in 5 to 7 days. Patient understood and was agreeable with the plan. All questions were answered. Disposition: Discharge home Impression: 1. General myalgias 2. Opiate withdrawal This note was generated with [employer] (acquired by [employer] in 2014) dictation software. It may contain incorrect words, spelling, and punctuation that were not noted in review of the chart prior to signing ED Disposition - Plan for ED Patient: Disposition: Home or Assisted Living Diagnosis: Myalgia, Withdrawal from opioids Instructions: ED Myalgias Referrals: Rose Stevens MD [Primary Care Provider] - 3-5 Days [facility] [STAFF PHYSICIAN] - As soon as possible
--- NOTE | 2021-02-26 10:41 | ED.RN ---
iv access attempts unsuccessful, lab called for blood draw, pt told lab she refused blood draw.
[2021-02-26] MEDS: Ibuprofen 400 MG Tablet 800 MG PO (10:53)
--- NOTE | 2021-02-26 11:01 | ED.RN ---
no access for iv or blood draw. provider aware.
== END 2021-02-26 12:02 | disposition home or self-care (01) ==
LOC: ED 11:17
PROVIDERS: Emergency Provider Emergency Medicine; PCP Internal Medicine
DX: M79.10 Myalgia, unspecified site (principal); F11.23 Opioid dependence with withdrawal; Z72.0 Tobacco use
CPT/HCPCS: 99284; J7030

== ENCOUNTER 2021-03-01 09:21 | Inpatient (IN) | payer MEDICAID, SELFPAY ==
[2021-03-01] VITALS (37 sets, daily range): BP systolic 117–138; BP diastolic 73–99; PULSE 91–124; RESP 16–50; TEMP 36.3–38.5; O2SAT 83–100; BMI 20.5; BMI 22.1
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
--- NOTE | 2021-03-01 09:42 | EKG12_ITS ---
Test Reason : SOB Blood Pressure : / mmHG Vent. Rate : 120 BPM Atrial Rate : 120 BPM P-R Int : 126 ms QRS Dur : 096 ms QT Int : 332 ms P-R-T Axes : 080 -08 056 degrees QTc Int : 469 ms Sinus tachycardia Otherwise normal ECG Confirmed by GOSIA HERNANDEZ, DEANA ([id number]), acquisition editor SHANE ARCINIEGA ([id number]) on 03/06/2021 10:41:01 AM Referred By: BB Confirmed By:DEANA ELISE MD
--- NOTE | 2021-03-01 09:45 | MRI_ITS ---
STUDY: MRI LUMBAR SPINE WITH AND WITHOUT CONTRAST REASON FOR EXAM: Female, 30 years old. Epidural abscess TECHNIQUE: Standardized fat and water weighted pulse sequences were obtained in the sagittal and axial planes. IV dotarem 10 cc was administered for the contrast portion of the examination. COMPARISON: None FINDINGS: T12-L1: Normal endplates. Normal disc height, hydration and morphology. Normal bilateral facet joints. Normal central canal and bilateral lateral recesses. Normal bilateral intervertebral neural foramina. Normal lumbar lordosis. There is no substantial scoliosis. Normal conus medullaris that terminates at the L1. L1-2: Normal endplates. Normal disc height, hydration and morphology. Normal bilateral facet joints. Normal central canal and bilateral lateral recesses. Normal bilateral intervertebral neural foramina. L2-3: Normal endplates. Normal disc height, hydration and morphology. Normal bilateral facet joints. Normal central canal and bilateral lateral recesses. Normal bilateral intervertebral neural foramina. L3-4: Normal endplates. Normal disc height, hydration and morphology. Normal bilateral facet joints. Normal central canal and bilateral lateral recesses. Normal bilateral intervertebral neural foramina. L4-5: Normal endplates. Normal disc height, hydration and morphology. Normal bilateral facet joints. Normal central canal and bilateral lateral recesses. Normal bilateral intervertebral neural foramina. L5-S1: Normal endplates. Normal disc height, hydration and morphology. Normal bilateral facet joints. Normal central canal and bilateral lateral recesses. Normal bilateral intervertebral neural foramina. Normal visualized sacral ala. Normal visualized paraspinous soft tissue structures. MRI/Spine Lumbar W/WO Contrast IMPRESSION: Normal enhanced and unenhanced MR examination of the lumbar spine. Electronically Signed: Edi Irvin MD at 14:45 EDT Tel , Service support ,
--- NOTE | 2021-03-01 09:45 | MRI_ITS ---
STUDY: MRI THORACIC SPINE WITH AND WITHOUT CONTRAST REASON FOR EXAM: Female, 30 years old. Epidural abscess TECHNIQUE: IV 10cc dotarem was administered for the contrast portion of the examination. COMPARISON: None. FINDINGS: Normal kyphosis of the thoracic spine. There is no substantial scoliosis. T1-2, T2-3, T3-4, T4-5, T5-6, T6-7, T7-8, T8-9, T9-10, T10-11, T11-12: Normal endplates. Normal disc hydration, heights and morphology of the corresponding intervertebral discs. Normal central canal and intervertebral neural foramina at the corresponding levels. Normal visualized thoracic cord. Normal conus medullaris that terminates at the L1.. The soft tissue structures are unremarkable. There is no enhancing abnormality. MRI/Spine Thoracic W/WO Contrast IMPRESSION: Normal unenhanced and enhanced MRI examination of the thoracic spine. Electronically Signed: Edi Irvin MD at 13:58 EDT Tel , Service support ,
--- NOTE | 2021-03-01 09:48 | ED.DCSUM_ITS ---
History of Present Illness Chief Complaint: Shortness of Breath Narrative: Patient presenting for evaluation secondary to generalized illness. Patient has a history of IV heroin abuse, last use was about 4 days ago. Patient states that she has developed generalized illness and shortness of breath. States that she has been having some nausea and diarrhea. She does report that she has been having some lower back pain associated with this. She states that she has been having some issues with incontinence of bowel. She reports that she feels weak in her lower extremities. Patient denies that she feels that any of her injection sites on her right hand and arm are infected currently. She also states that she is wishing detox. Review of systems otherwise negative. Past Medical History - Allergies and Home Meds Allergies/Adverse Reactions: Allergies No Known Allergies Allergy (Verified 03/01/21 09:33) Surgical History: - - x1. Smoking Status: Current every day smoker Alcohol: None Drugs: Heroin - Family History Maternal Family History: Reports: Diabetes, Heart Disease Paternal Family History: Reports: COPD, - - Father with a history of substance abuse, alcohol abuse. Sibling Family History: Reports: - - Her sister is diabetic. Review of Systems All systems negative except as indicated General: Reports: Fever, Malaise Eyes: Denies: Visual changes - bilaterally, Diplopia ENT: Denies: Rhinorrhea, Sore throat Cardiovascular: Denies: Chest pain, Palpitations Respiratory: Denies: Dyspnea, Cough, Dyspnea on exertion Gastrointestinal: Reports: Nausea Genitourinary: Denies: Dysuria, Hematuria, Frequency Musculoskeletal: Reports: Back pain Skin: Denies: Rash, Wounds Neurological: Reports: Weakness Physical Exam Vital Signs/Narrative: Vital Signs Temp Pulse Resp BP Pulse Ox 03/01/21 09:27 101.3 F H 123 H 28 H 122/99 H 89 03/01/21 09:25 101.3 F H 124 H 26 H 122/99 H 98 Inital Vital Signs reviewed: Yes General: - - Thin ill-appearing female who appears older than stated age Head: Normocephalic, Atraumatic Eyes: Perrl, EOMI, - - Eyes are sunken ENT: Dry mucous membranes Neck: Supple, Nontender Cardiovascular: Regular rhythm, No murmurs, Tachycardia, - - 2+ radial pulses bilaterally symmetric Respiratory: - - Patient is tachypneic, no abnormal breath sounds are noted Abdomen: Soft, Nontender, Nondistended, Normal bowel sounds Back: - - Some lumbar spine tenderness, no evidence of deformities Extremities: Nontender, No edema, - - Area of bogginess is noted over the dorsum of the patient's right hand near the junction of the hand and the wrist, this does not have overlying erythema that is nontender, no surrounding induration Skin: - - Track miller noted on the left hand and arm Neurological: Alert, Oriented x3, - - Patient has some weakness of the right leg with extensor houses longus, and flexion and extension at the knee. Normal sensation over all dermatomes. Psychological: Normal affect, Normal Mood Diagnostic/Tx/Re-eval Chest X-Ray - ED: 1 View, Right Infiltrate, Left Infiltrate Clinical Impression(s) from Imaging Studies Chest X-Ray 03/01/21 09:42 IMPRESSION: 1. Interval placement of a right internal jugular deep venous line with tip the catheter overlying the superior vena cava with no pneumothorax. 2. No change in bilateral patchy pneumonia or possibly pulmonary nodules. Correlation with CT the chest with contrast would be useful. Electronically Signed: Edi Irvin MD at 15:22 EDT Tel , Service support , Lumbar Spine MRI 03/01/21 09:45 IMPRESSION: Normal enhanced and unenhanced MR examination of the lumbar spine. Electronically Signed: Edi Irvin MD at 14:45 EDT Tel , Service support , Thoracic Spine MRI 03/01/21 09:45 IMPRESSION: Normal unenhanced and enhanced MRI examination of the thoracic spine. Electronically Signed: Edi Irvin MD at 13:58 EDT Tel , Service support , Laboratory Data 03/01/21 03/01/21 03/01/21 09:38 09:38 09:38 WBC 13.7 H RBC 2.05 L Hgb 5.6 L* Hct 17.5 L MCV 85.4 MCH 27.3 MCHC 32.0 RDW Std Deviation 60.5 H RDW Coeff of Tiffanie 19.6 H Plt Count 157 MPV 10.4 Immature Gran % (Auto) 2.000 H Neut % (Auto) 82.8 H Lymph % (Auto) 10.8 L Schleicher % (Auto) 4.2 Eos % (Auto) 0.1 Baso % (Auto) 0.1 Absolute Neuts (auto) 11.3 H Absolute Lymphs (auto) 1.48 Nucleated RBC % 0 Differential Comment SCANNED Diff Path Review Reviewed Platelet Estimate ADEQUATE Polychromasia RARE Hypochromasia 1+ Anisocytosis 1+ PT 17.9 H INR 1.6 APTT 30.4 Specimen Type VBG pH VBG pO2 VBG HCO3 VBG Total CO2 VBG O2 Sat (Calc) VBG Base Excess POC Mix VBG pCO2 Pt Tmp O2 Delivery Device Liter Flow Sodium 128 L Potassium 3.0 L Chloride 92 L Carbon Dioxide 24.0 Anion Gap 12 BUN 78 H Creatinine 2.56 H Estim Creat Clear Calc 25.65 Est GFR (MDRD) Af Amer 29 L Est GFR (MDRD) Non-Af 24 L BUN/Creatinine Ratio 30.5 H Glucose 86 Lactic Acid Calcium 7.3 L Total Bilirubin 0.80 AST 24 ALT 9 L Alkaline Phosphatase 106 Total Creatine Kinase 23 L Total Protein 6.6 Albumin 1.4 L Globulin 5.2 H Albumin/Globulin Ratio 0.3 L Blood Type Antibody Screen Crossmatch 03/01/21 03/01/21 03/01/21 09:38 11:25 11:25 WBC RBC Hgb Hct MCV MCH MCHC RDW Std Deviation RDW Coeff of Tiffanie Plt Count MPV Immature Gran % (Auto) Neut % (Auto) Lymph % (Auto) [place]le[place] % (Auto) Eos % (Auto) Baso % (Auto) Absolute Neuts (auto) Absolute Lymphs (auto) Nucleated RBC % Differential Comment Diff Path Review Platelet Estimate Polychromasia Hypochromasia Anisocytosis PT INR APTT Specimen Type VBG pH VBG pO2 VBG HCO3 VBG Total CO2 VBG O2 Sat (Calc) VBG Base Excess POC Mix VBG pCO2 Pt Tmp O2 Delivery Device Liter Flow Sodium Potassium Chloride Carbon Dioxide Anion Gap BUN Creatinine Estim Creat Clear Calc Est GFR (MDRD) Af Amer Est GFR (MDRD) Non-Af BUN/Creatinine Ratio Glucose Lactic Acid 2.9 H* Calcium Total Bilirubin AST ALT Alkaline Phosphatase Total Creatine Kinase Total Protein Albumin Globulin Albumin/Globulin Ratio Blood Type A NEGATIVE Antibody Screen NEGATIVE Crossmatch See Detail 03/01/21 03/01/21 11:32 14:30 WBC RBC Hgb Hct MCV MCH MCHC RDW Std Deviation RDW Coeff of Tiffanie Plt Count MPV Immature Gran % (Auto) Neut % (Auto) Lymph % (Auto) Schleicher % (Auto) Eos % (Auto) Baso % (Auto) Absolute Neuts (auto) Absolute Lymphs (auto) Nucleated RBC % Differential Comment Diff Path Review Platelet Estimate Polychromasia Hypochromasia Anisocytosis PT INR APTT Specimen Type EVELYN VBG pH 7.55 H VBG pO2 36 VBG HCO3 22 VBG Total CO2 23 VBG O2 Sat (Calc) 79 H VBG Base Excess 0 POC Mix VBG pCO2 Pt Tmp 25.2 L O2 Delivery Device Cannula Liter Flow 2.0 Sodium Potassium Chloride Carbon Dioxide Anion Gap BUN Creatinine Estim Creat Clear Calc Est GFR (MDRD) Af Amer Est GFR (MDRD) Non-Af BUN/Creatinine Ratio Glucose Lactic Acid 1.2 Calcium Total Bilirubin AST ALT Alkaline Phosphatase Total Creatine Kinase Total Protein Albumin Globulin Albumin/Globulin Ratio Blood Type Antibody Screen Crossmatch - EKG Initial EKG Interpretation: No Acute Injury Pattern, Sinus Tachycardia - Medical Decision Making Patient presenting secondary to apparent sepsis. On initial arrival, the patient was incontinent of stool and was complaining of right leg weakness in the setting of a fever and heroin abuse I was concerned for the possibility of an epidural abscess. IV was established, laboratory studies were obtained and the patient was immediately given vancomycin and Zosyn as well as fluid resuscitation. Patient's hemogram came back with a hemoglobin of 5. This is downward trending from the patient's prior hemoglobin about a month ago which was 7. Patient was typed and crossmatched for 2 units of blood. She was noted to have a leukocytosis with a neutrophilic predominance. Chemistry panel shows acute renal failure with elevation of the patient's creatinine above 2. Patient's lactic acid was elevated to almost 3. She was mildly hyponatremic and hypokalemic. Patient remained tachypneic and requiring supplemental oxygen in the emergency department. Chest x-ray by my personal review demonstrates very severe bilateral infiltrates concerning for the possibility of septic emboli. I did perform a CT scan which is pending. MRIs of the thoracic and lumbar spine were obtained which were normal per radiology and did not demonstrate evidence of an epidural abscess. Patient is severely septic at this point. As noted in the procedure note a right internal jugular venous catheter was placed. Patient will be admitted to intensive care. - Critical Care Time Critical care time (excluding procedures): 30-74 minutes Procedures Procedure(s): Patient was consented for placement of a right internal jugular central venous catheter secondary to poor access and a appearance of sepsis. Timeout was performed. Right internal jugular vein was identified on ultrasound. Patient was prepped with chlorhexidine x2 and was draped in a head to toe sterile fashion. Sterile technique was utilized. Internal jugular vein was accessed under direct ultrasound guidance. Modified Seldinger technique was utilized to place the triple-lumen catheter. This was confirmed for placement via ultrasound. There was good flush and draw and all 3 ports. Biopatch was placed, catheter was sutured in place, dressing was placed by nursing staff. Patient tolerated this well. ED Disposition - Plan for ED Patient: Disposition: Acute Care Hospital [facility] Diagnosis: IV drug abuse, Severe sepsis, Bilateral pneumonia, Lactic acidosis
[2021-03-01] MEDS: Acetaminophen 500 MG Tablet 1000 MG PO (09:57)
[2021-03-01 10:09] LABS: Absolute Lymphocyte Count 1.48 X10^3/uL (0.83-4.51); Absolute Neutrophil Count 11.3 X10^3/uL (2.0-7.7); Basophil# 0.02 X10^3/uL; Basophil% 0.1 % (0-1); Eosinophil# 0.01 X10^3/uL; Eosinophils% 0.1 % (0-5); Hematocrit 17.5 % (37-47); Lymphocyte # 1.48 X10^3/ul (4.0); Lymphocyte % 10.8 % (19-41); Mean Corpuscular Hgb 27.3 pg (27.0-32.0); Mean Corpuscular Volume 85.4 fL (81-99); Mean Platelet Vol. 10.4 fl (6.2-12.0); Monocyte# 0.57 X10^3/uL; Monocyte% 4.2 % (0-10); NRBC Flagged by Analyzer 0 % (0-5); Neutrophil % 82.8 % (47-70); POSITIVE COUNT YES; POSITIVE MORPHOLOGY YES; Platelet Count 157 K/mm3 (150-450); RBC Distribution Width CV 19.6 % (11.6-14.6); RBC Distribution Width SD 60.5 fl (35.1-43.9); Red Blood Count 2.05 M/mm3 (4.2-5.4); White Blood Count 13.7 K/mm3 (4.4-11.0)
[2021-03-01 10:14] LABS: Differential Indicated SCAN CRITERIA MET; Hemoglobin 5.6 g/dL (12.0-15.0)
[2021-03-01 10:17] LABS: International Normalized Ratio 1.6; Prothrombin Time (Protime)PT. 17.9 SECONDS (11.7-14.9)
[2021-03-01 10:18] LABS: Partial Thromboplast Time 30.4 Seconds (24.1-36.2)
[2021-03-01 10:23] LABS: ALB/GLOB Ratio 0.3 RATIO (0.9-2.4); AST(SGOT) 24 U/L (15-37); Alanine Aminotransfer ALT/SGPT 9 U/L (13-56); Albumin, Serum 1.4 g/dL (3.2-5.0); Alkaline Phosphatase 106 U/L (45-117); Anion Gap 12 (5-15); BUN 78 mg/dL (7-18); BUN/Creat Ratio 30.5 RATIO (10-20); CPK Total, Creatine Kinase 23 U/L (26-192); Calcium,Total 7.3 mg/dL (8.5-10.1); Chloride 92 mmol/L (98-107); Creatinine, Serum 2.56 mg/dL (0.55-1.02); EST Glomerular Filtration Rate 24 mL/min (>60); Est Glom Filt Rate - Afr Amer 29 mL/min (>60); Estimated Creatinine Clearance 25.65 ml/min; Globulin 5.2 g/dL (2.2-4.2); Glucose 86 mg/dL (74-106); Protein, Total 6.6 g/dL (6.4-8.2); Sodium Level 128 mmol/L (136-145)
[2021-03-01 10:31] LABS: Differential Comment SCANNED
[2021-03-01 10:35] LABS: Lactic Acid 2.9 mmol/L (0.4-1.9)
[2021-03-01 10:37] LABS: Anisocytosis 1+; Platelet Estimate ADEQUATE (ADEQ)
[2021-03-01 10:38] LABS: Hypochromasia 1+; Polychromasia RARE
[2021-03-01] MEDS: 0.9% Normal Saline 1,000 ML 999 ML IV ×2 (10:55→11:33)
[2021-03-01] MEDS: LORazepam 2 MG/ML Syringe 1 MG IV ×2 (11:33→11:52)
[2021-03-01 11:35] LABS: Blood Gas Specimen Type VEN; O2 Delivery Device Cannula; VBG BASE EXCESS 0 mmol/L (-1.0-3.5); VBG Bicarbonate 22 mmol/L (22-26); VBG PO2 36 mmHg (25-40); VBG SO2 79 % (50-70); VBG TCO2 23 mmol/L (23-33); VBG pCO2 25.2 mmHg (41-51); VBG pH 7.55 (7.32-7.42)
--- NOTE | 2021-03-01 13:12 | NURSING ---
Blood return noted from RT central line, brown tail. 10 ml NS flushed, 10 ml MRI Contrast injected by this RN, flushed with 10ml NS.
[2021-03-01 13:59] LABS: Reflex Lactate? Y
[2021-03-01 14:17] LABS: Pathologist Review Reviewed
--- NOTE | 2021-03-01 14:57 | CT_ITS ---
STUDY: CT CHEST WITHOUT CONTRAST REASON FOR EXAM: Female, 30 years old. Septic emboli, back pain, SOB, requesting detox. RADIATION DOSAGE (If Supplied By Facility): CTDIvol = ( 11.46 ) mGy, DLP = ( 363.55 ) mGycm TECHNIQUE: Transaxial imaging was performed without the administration of intravenous contrast material. Individualized dose optimization techniques were used for this CT. COMPARISON: None. FINDINGS: Quality: Adequate. Images are degraded by artifact due to arm position. Heart size and pericardium are unremarkable. The aorta is normal in caliber. There is no mediastinal mass or adenopathy. There is no pleural effusion. Innumerable nodular opacities bilaterally. Several opacities are associated with cavitation, cystic change or bronchiectasis. Visualized abdomen is unremarkable. There is no osseous abnormality. CT/Chest without Contrast IMPRESSION: 1. Multiple pulmonary nodular opacities consistent with history of septic emboli. Pneumonia could be considered in the appropriate clinical setting. Electronically Signed: Soco Powell MD at 17:56 EDT Tel , Service support ,
[2021-03-01 14:59] LABS: Lactic Acid 1.2 mmol/L (0.4-1.9)
--- NOTE | 2021-03-01 15:12 | PCM.HP.STD ---
Problem List (1) Opiate abuse, continuous Status: Chronic (2) Opiate withdrawal Status: Acute (3) Anxiety and depression Status: Chronic (4) Hepatitis C Status: Chronic Qualifiers: Viral hepatitis chronicity: unspecified Hepatic coma status: without hepatic coma Qualified Code(s): B19.20 - Unspecified viral hepatitis C without hepatic coma (5) IV drug abuse Status: Chronic (6) Tobacco use Status: Chronic (7) Obesity (BMI 30-39.9) Status: Resolved (8) Acute respiratory failure with hypoxia Status: Acute (9) Bronchial asthma Status: Chronic Qualifiers: Asthma severity: unspecified severity Asthma persistence: unspecified Asthma complication type: unspecified Qualified Code(s): J45.909 - Unspecified asthma, uncomplicated History of Present Illness Date of Admission: 03/01/21 Chief Complaint: Shortness of breath, requesting opioid detox. The patient is a 30 year old F who presents emergency room due to shortness of breath, requesting opioid detox. On examination in the emergency room, patient lethargic and unable to participate in HPI. Patient was reported to be conversing earlier however received Ativan in ER. Patient has a history of IV heroin use with reported last used 4 days ago. She had multiple complaints on admission including generalized malaise, shortness of breath, nausea and diarrhea. Patient reports low back pain and intermittent incontinence of stool. Unable to obtain any other information from patient at this time. Per records, she has a past medical history of polysubstance abuse with history of IV drug use, history of hepatitis C, tobacco dependence, chronic asthma, anxiety, depression, GERD. Past Medical History Past Medical History (Chronic Problems): Chronic Problems Opiate abuse, continuous (Chronic) Anxiety and depression (Chronic) Hepatitis C (Chronic) IV drug abuse (Chronic) Tobacco use (Chronic) Bronchial asthma (Chronic) Allergies No Known Allergies Allergy (Verified 03/01/21 09:33) Home Medications: Ambulatory Orders Medication Instructions Recorded Albuterol Sulfate [Albuterol 2 puff PO BID PRN PRN 08/06/20 Sulfate HFA] Budesonide/Formoterol 160/4.5 2 puff PO DAILY 08/06/20 [Symbicort 160/4.5 Mcg Inhaler (SP)] Sertraline HCl [Zoloft] 75 mg PO DAILY 08/06/20 busPIRone [Buspar] 10 mg PO TID 08/06/20 Ferrous Sulfate [Iron] 325 mg PO DAILY #30 tab 02/01/21 Surgical History: - - x1. 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 Sibling History Items: - - Her sister is diabetic. Review of Systems Unable to obtain accurate/complete ROS d/t: Unable to obtain due to patient lethargy VTE Information - Inpt Only VTE Present on Admission: No VTE Mechan Device Prophylaxis: SCD's VTE Pharm Prophylaxis ordered?: No Reason prophylaxis not ordered:: Medical Contraindication Patient Problems: Active and Suspected Problems Opiate withdrawal (Acute) Acute respiratory failure with hypoxia (Acute) - Physical Exam Vitals/I&O's: Vital Signs Temp Pulse Resp BP Pulse Ox 98.8 F 111 H 40 H 121/81 H 99 03/01/21 14:09 03/01/21 14:10 03/01/21 14:10 03/01/21 14:10 03/01/21 14:10 Oxygen Flow Rate (L/min) 5 Oxygen Delivery Method Nasal Cannula Weight: 112 lb Body Mass Index (BMI) 20.5 Finger Stick Blood Glucose 80 Intake and Output for Last 24 Hours 02/27/21 02/28/21 03/01/21 23:59 23:59 23:59 Intake Total 2325 / 2325 Balance 2325 / 2325 General: Lethargic, - - Tachypneic, ill-appearing HEENT: Atraumatic, PERRLA, EOMI, Normocephalic Oral: Dry Mucosa Neck: Supple, No JVD, Negative Carotid Bruits Lungs: Diminished, Tachypneic Cardiovascular: Regular Rhythm, No murmurs, Tachycardic Abdomen: Bowel Sounds Present, Soft, Non Tender Extremities: No clubbing, No cyanosis, No edema Skin: No rashes, No breakdown, - - Track miller left upper extremity Musculoskeletal: No Tenderness to Palpation of Joints or Extremities, Cachexia, Muscle Wasting Neurological: Cranial nerves II-XII grossly intact Psych/Mental Status: - - Unable to assess due to lethargy Microbiology Past 72 Hours 03/01/21 10:25 Mucosa - Nose SARS-CoV-2 Antigen (Rapid) - Final Laboratory Results 03/01/21 09:38: WBC 13.7 H, RBC 2.05 L, Hgb 5.6 L*, Hct 17.5 L, MCV 85.4, MCH 27.3, MCHC 32.0, RDW Std Deviation 60.5 H, RDW Coeff of Tiffanie 19.6 H, Plt Count 157, MPV 10.4, Immature Gran % (Auto) 2.000 H, Neut % (Auto) 82.8 H, Lymph % (Auto) 10.8 L, [place] % (Auto) 4.2, Eos % (Auto) 0.1, Baso % (Auto) 0.1, Absolute Neuts (auto) 11.3 H, Absolute Lymphs (auto) 1.48, Nucleated RBC % 0, Differential Comment SCANNED, Diff Path Review Reviewed, Platelet Estimate ADEQUATE, Polychromasia RARE, Hypochromasia 1+, Anisocytosis 1+ 03/01/21 09:38: PT 17.9 H, INR 1.6, APTT 30.4 03/01/21 09:38: Sodium 128 L, Potassium 3.0 L, Chloride 92 L, Carbon Dioxide 24.0, Anion Gap 12, BUN 78 H, Creatinine 2.56 H, Estim Creat Clear Calc 25.65, Est GFR (MDRD) Af Amer 29 L, Est GFR (MDRD) Non-Af 24 L, BUN/Creatinine Ratio 30.5 H, Glucose 86, Calcium 7.3 L, Total Bilirubin 0.80, AST 24, ALT 9 L, Alkaline Phosphatase 106, Total Creatine Kinase 23 L, Total Protein 6.6, Albumin 1.4 L, Globulin 5.2 H, Albumin/Globulin Ratio 0.3 L 03/01/21 09:38: Lactic Acid 2.9 H* 03/01/21 11:25: Blood Type A NEGATIVE, Antibody Screen NEGATIVE 03/01/21 11:25: Crossmatch See Detail 03/01/21 11:32: Specimen Type EVELYN, VBG pH 7.55 H, VBG pO2 36, VBG HCO3 22, VBG Total CO2 23, VBG O2 Sat (Calc) 79 H, VBG Base Excess 0, POC Mix VBG pCO2 Pt Tmp 25.2 L, O2 Delivery Device Cannula, Liter Flow 2.0 03/01/21 14:30: Lactic Acid 1.2 Assessment/Plan All Active Problems Opiate withdrawal (Acute) Acute respiratory failure with hypoxia (Acute) Obesity (BMI 30-39.9) (Resolved) 1. Severe sepsis secondary to suspected septic emboli-lactic acid 2.9, tachycardic, tachypneic, WBC 13.7. Chest x-ray admission with bilateral patchy pneumonia. Patient undergo CT of chest in ER, pending. Blood cultures pending. Urinalysis pending. IV vancomycin and IV Zosyn. MRSA PCR. Fluids per sepsis protocol. Echo ordered. 2. Acute hypoxic respiratory failure secondary to suspected septic emboli-continue supplement oxygen to maintain O2 at above 90%. Treatment per above. Urine for strep and Legionella, sputum culture ordered. Covid negative. 3. Acute on chronic normocytic anemia-2 units PRBC ordered in ER. Check stool for occult blood. Check iron studies. Trend H&H. 4. Acute kidney injury- IV fluids, trend BMP. 5. Acute opioid withdrawal, history of polysubstance abuse/IV drug use, history of hepatitis C-reported last use 4 days ago. Given lethargy, hold off on medical stabilization protocol including Subutex taper. When medically stable, consider [employer] consult. CM consulted. 6. Lower extremity weakness with bowel incontinence-lumbar and thoracic spine MRI normal. Possibly related to severity of acute illness. PT/OT. 7. Hypokalemia-replace per protocol, trend BMP. 8. Hypovolemic hyponatremia-IV fluids, trend BMP. 9. Chronic asthma-no exacerbation. As needed albuterol aerosol. 10. Anxiety/depression-on sertraline, BuSpar. 11. GERD-on famotidine. 12. Tobacco dependence-encourage cessation. Nicotine replacement patch if desired. DVT prophylaxis-SCDs This patient was seen by KYLEE Zavala under the supervision of Dr. Lambert.
--- NOTE | 2021-03-01 15:19 | NURSING ---
ICU SEPSIS WHITE
[2021-03-01 16:05] LABS: Mucous, Urine 0 SEEN /hpf (<or=2+); Squamous Epithelial Cells - UA 0 SEEN /hpf (5-10)
[2021-03-01 16:15] LABS: Color, Urine Yellow (Yellow); Glucose, Dipstick Normal (Normal); Ketone-Dipstick Negative (Negative); Leukocyte Esterase-Dipstick 100 /ul (Negative); Nitrite-Dipstick Negative (Negative); Occult Blood-Urine 250 /ul (Negative); Protein-Dipstick 500 mg/dl (Negative); Specific Gravity, Urine 1.015 (1.002-1.030); Urine Bilirubin Dipstick Negative (Negative); Urine Clarity Cloudy (Clear); Urine Urobilinogen Normal (Normal)
--- NOTE | 2021-03-01 16:15 | ED.RN ---
Patient reports there is no one to call for her, to let them know she is here
[2021-03-01 16:41] LABS: Amphetamine Urine VISTA NEGATIVE (<1000 ng/mL); Barbiturate Urine VISTA NEGATIVE (< 200 ng/mL); Benzodiazepine Urine VISTA NEGATIVE (< 200 ng/mL); Cocaine Urine VISTA NEGATIVE (< 300 ng/mL); Ecstacy Urine VISTA NEGATIVE (< 500 ng/mL); Methadone Urine VISTA NEGATIVE (< 300 ng/mL); PCP Urine VISTA NEGATIVE (< 25 ng/mL); THC Urine VISTA NEGATIVE (< 50 ng/mL); Vista UDS pH Range 5
[2021-03-01 17:04] LABS: Bacteria 3+ /hpf (None Seen); Coarse Granular Cast 0-5 SEEN /lpf (0-5 /lpf); Hyaline Cast 0-5 SEEN /lpf (0-5); Red Blood Cells-Urine 5-10 SEEN /hpf (0-5); Renal Epithelial Cells 0-5 SEEN /hpf (0-5); White Blood Cells 50-100 SEEN /hpf (0-5)
[2021-03-01 17:05] LABS: White Cell Cast 5-10 SEEN /lpf (None Seen)
--- NOTE | 2021-03-01 17:11 | PCM.RX.CS ---
Consult Pharmacy has been consulted to manage selected antiobiotic: Vancomycin Type of Consult: New start Suspected Infection: Sepsis Labs: Sodium 128 mmol/L (136-145) L 03/01/21 09:38 Potassium 3.0 mmol/L (3.5-5.1) L 03/01/21 09:38 Chloride 92 mmol/L (98-107) L 03/01/21 09:38 Carbon Dioxide 24.0 mmol/L (21.0-32.0) 03/01/21 09:38 Anion Gap 12 (5-15) 03/01/21 09:38 BUN 78 mg/dL (7-18) H 03/01/21 09:38 Creatinine 2.56 mg/dL (0.55-1.02) H 03/01/21 09:38 Est GFR (MDRD) Af Amer 29 mL/min (>60) L 03/01/21 09:38 Est GFR (MDRD) Non-Af 24 mL/min (>60) L 03/01/21 09:38 BUN/Creatinine Ratio 30.5 RATIO (10-20) H 03/01/21 09:38 Glucose 86 mg/dL (74-106) 03/01/21 09:38 Microbiology: Microbiology 03/01/21 10:25 Mucosa - Nose SARS-CoV-2 Antigen (Rapid) - Final Weight used for dosin.8 kg Goal Trough: 15-20 mcg/mL Pharmacy Plan for Drug Dosing: NEW START IV VANCOMYCIN Consulting Physician: Jimmy Indication: Severe Sepsis Goal Trough: 15-20 SrCr: 2.56 CrCl: 25.65 Comments: pt received a 1250mg dose in the ER 03/01/21 at 1111 Vancomcyin Dose: recommend starting pt at 500mg q24h. first dose 03/02/21 at 1100 Pending Level: 03/03/21 at 1030 Pharmacy Service will continue to monitor and adjust dosing as required. Follow-Up Labs: Trough Vancomycin - 03/03 at 1030
[2021-03-01] MEDS: 0.9% Normal Saline 1,000 ML 125 ML IV (17:13)
[2021-03-01 17:38] LABS: Hematocrit 17.4 % (37-47); POSITIVE COUNT YES
[2021-03-01 17:45] LABS: Hemoglobin 5.5 g/dL (12.0-15.0)
[2021-03-01 18:21] LABS: Ferritin 130 ng/mL (8-252); Iron 11 ug/dL (50-170); Iron Binding Capacity,Total 200 ug/dL (250-450); Magnesium 1.8 mg/dL (1.6-2.6); PERCENT IRON SATURATION 5.5 % (15.0-55.0); Phosphorus 7.5 mg/dL (2.5-4.9)
[2021-03-01] MEDS: Ipratropium/Albuterol Sulfate 3 ML AMPUL.NEB INHALATION ×2 (18:40→22:55)
[2021-03-01 18:47] LABS: Probe Check PASS
[2021-03-01 18:48] LABS: M R Staph aureus DNA By PCR POSITIVE (Negative)
[2021-03-01 22:29] LABS: HIV - WCH Preliminary Reactive (Nonreactive)
[2021-03-02] VITALS (21 sets, daily range): BP systolic 120–140; BP diastolic 53–94; PULSE 61–130; RESP 16–50; TEMP 37.3–38.6; O2SAT 88–98
[2021-03-02 00:11] LABS: Hematocrit 24.7 % (37-47); Hemoglobin 8.1 g/dL (12.0-15.0)
[2021-03-02] MEDS: 0.9% Normal Saline 1,000 ML 125 ML IV ×2 (01:11→10:15)
[2021-03-02] MEDS: Gabapentin 300 MG Capsule PO (01:45)
[2021-03-02] MEDS: cloNIDine HCl 0.1 MG Tablet PO (01:45)
[2021-03-02] MEDS: Methocarbamol 750 MG Tablet 1500 MG PO (01:45)
[2021-03-02] MEDS: traZODone 100 MG Tablet PO (01:45)
[2021-03-02 03:54] LABS: Hematocrit 25.4 % (37-47); Hemoglobin 8.3 g/dL (12.0-15.0); Mean Corp Hgb Conc 32.7 g/dL (32-36); Mean Corpuscular Hgb 27.7 pg (27.0-32.0); Mean Corpuscular Volume 84.7 fL (81-99); Mean Platelet Vol. 11.1 fl (6.2-12.0); Platelet Count 110 K/mm3 (150-450); RBC Distribution Width CV 17.3 % (11.6-14.6); RBC Distribution Width SD 53.4 fl (35.1-43.9)
[2021-03-02 04:09] LABS: Anion Gap 9 (5-15); BUN 76 mg/dL (7-18); Calcium,Total 6.8 mg/dL (8.5-10.1); Chloride 100 mmol/L (98-107); Creatinine, Serum 2.53 mg/dL (0.55-1.02); EST Glomerular Filtration Rate 24 mL/min (>60); Est Glom Filt Rate - Afr Amer 29 mL/min (>60); Estimated Creatinine Clearance 25.95 ml/min; Glucose 125 mg/dL (74-106); Potassium 3.6 mmol/L (3.5-5.1); Sodium Level 131 mmol/L (136-145)
[2021-03-02] MEDS: 0.9% Saline Lock 10 ML Syringe IV (05:20)
--- NOTE | 2021-03-02 05:33 | PCM.CON.CC ---
Reason for Consult Date of Consultation: 03/02/21 Reason for Consultation: Severe sepsis History of Present Illness: The patient is a 30-year-old female, with a history as outlined below, who presented to the emergency department on March 01 with generalized malaise and shortness of breath. The patient has a longstanding history of heroin dependency with high resource utilization and frequent emergency department visits. The patient had just been evaluated in the emergency department on February 26 with similar complaints. At that time, the patient had just been released from [facility] after being arrested for heroin possession. The patient was also evaluated in the emergency department on February 01 with lower extremity cellulitis. Cultures drawn at that time were positive for MRSA. In addition, the patient was noted to have a hemoglobin at that time of 7.1 g/dL. The patient apparently refused admission to the hospital but was given prescription for antibiotics and iron supplementation. On presentation to the emergency department this time, the patient was noted to be febrile with a temperature of 101.3 ?F. She was also tachycardic and tachypneic. Laboratory evaluation revealed an elevated white blood cell count of 14,000. Hemoglobin was decreased to 5.6 g/dL. Chemistry profile was notable for a sodium of 128, potassium of 3.0, chloride of 92 and creatinine of 2.56. Lactate was elevated to 2.9. Albumin is low at 1.4. Urine analysis was negative for nitrates, positive for leukocyte esterase and 3+ urine bacteria. Toxicology screen was positive for opiates. HIV antibody testing revealed a preliminary reactive result. MRSA screen was positive. Thoracic and lumbar MRIs were performed which were grossly negative. CT chest was performed and revealed stigmata of bilateral septic emboli and superimposed groundglass changes. The patient received supplemental IV fluid hydration and was started on broad-spectrum antimicrobials. She was subsequently admitted to the medical intensive care unit for further management. In addition to the above, the patient was ordered to receive 3 units of packed red blood cells. Post H&H transfusion revealed a hemoglobin of 8.1 g/dL. This morning, the patient is quite drowsy but was able to tell me that she last used heroin 3 to 4 days ago. She does report the presence of shortness of breath. The patient was started on Buprenorphine this morning. Past Medical History Past Medical History (Chronic Problems): Chronic Problems Opiate abuse, continuous (Chronic) Anxiety and depression (Chronic) Hepatitis C (Chronic) IV drug abuse (Chronic) Tobacco use (Chronic) Bronchial asthma (Chronic) Allergies No Known Allergies Allergy (Verified 03/01/21 09:33) Home Medications: Ambulatory Orders Medication Instructions Recorded Albuterol Sulfate [Albuterol 2 puff PO BID PRN PRN 08/06/20 Sulfate HFA] Budesonide/Formoterol 160/4.5 2 puff PO DAILY 08/06/20 [Symbicort 160/4.5 Mcg Inhaler (SP)] busPIRone [Buspar] 10 mg PO TID 08/06/20 Ferrous Sulfate [Iron] 325 mg PO DAILY 03/01/21 Sertraline HCl 100 mg PO DAILY 03/01/21 Surgical History: - - x1. Psychiatric History: Anxiety, Depression WEED THINNER History: No pertinent WEED THINNER history Lives: - - Unknown Smoking Status: Current every day smoker Tobacco Use: Cigarettes Alcohol: None Drugs: Heroin - *Family History Maternal History Items: Diabetes, Heart Disease Paternal History Items: COPD, - - Father with a history of substance abuse, alcohol abuse. Sibling History Items: - - Her sister is diabetic. Review of Systems Constitutional: Reports: Fever, Malaise, Fatigue Eyes: Denies: Blurred vision, Double vision HEENT: Denies: Head Aches, Sinus Congestion, Sinus Drainage Cardiovascular: Denies: Chest Pain, Palpitations Respiratory: Reports: Shortness of Breath Gastrointestinal: Denies: Abdominal Pain, Nausea, Vomiting Genitourinary: Denies: Dysuria Musculoskeletal: Reports: Back Pain Skin: Denies: Rash, Wounds Neurological: Denies: Numbness, Tingling, Focal weakness Psychiatric: Reports: Anxiety Hematologic/ Lymphatic: Reports: Anemia Patient Problems: Active and Suspected Problems Opiate withdrawal (Acute) Severe sepsis (Acute) Bilateral pneumonia (Acute) Lactic acidosis (Acute) Acute respiratory failure with hypoxia (Acute) Objective: The patient's most recent lab work, culture data and imaging studies have all been personally reviewed. Blood cultures were again positive for MRSA. Rapid coronavirus antigen testing was negative. Strep and urine Legionella antigens were negative. Urine cultures are pending. - Physical Exam Vitals/I&O's: Vital Signs Temp Pulse Resp BP Pulse Ox 100 F H 122 H 35 H 128/86 H 97 03/02/21 02:00 03/02/21 04:00 03/02/21 02:00 03/02/21 02:00 03/02/21 02:00 Oxygen Flow Rate (L/min) 2 Oxygen Delivery Method Nasal Cannula Weight: 130 lb 11.746 oz Body Mass Index (BMI) 22.1 Finger Stick Blood Glucose 80 Intake and Output for Last 24 Hours 02/28/21 03/01/21 03/02/21 23:59 23:59 23:59 Intake Total 3755 / 4115 1405.83 / 1405.83 Output Total 475 / 555 320 / 320 Balance 3280 / 3560 1085.83 / 1085.83 General: - - Arousable to verbal stimulation but drowsy/somnolent. The patient is quite tachypneic and is notably ill in appearance. HEENT: Atraumatic, Normocephalic Oral: Dry Mucosa Neck: Supple, No Nodes, Trachea Midline, - - Central venous catheter in place Lungs: Diminished, Rhonchi, Tachypneic Cardiovascular: Normal S1, Normal S2, Tachycardic Abdomen: Bowel Sounds Present, Soft, Non Tender Extremities: No clubbing, No cyanosis, No edema Skin: - - Numerous injection sites/track miller over extremities Musculoskeletal: Cachexia Lymphatic: No Cervical, Supraclavicular, or Inguinal Adenopathy Neurological: Neuro grossly intact Psych/Mental Status: Flat Affect Labs (Last 48 Hours) 03/01/21 03/01/21 03/01/21 09:38 09:38 09:38 WBC 13.7 H RBC 2.05 L Hgb 5.6 L* Hct 17.5 L MCV 85.4 MCH 27.3 MCHC 32.0 RDW Std Deviation 60.5 H RDW Coeff of Tiffanie 19.6 H Plt Count 157 MPV 10.4 Immature Gran % (Auto) 2.000 H Neut % (Auto) 82.8 H Lymph % (Auto) 10.8 L [place] % (Auto) 4.2 Eos % (Auto) 0.1 Baso % (Auto) 0.1 Absolute Neuts (auto) 11.3 H Absolute Lymphs (auto) 1.48 Nucleated RBC % 0 Differential Comment SCANNED Diff Path Review Reviewed Platelet Estimate ADEQUATE Polychromasia RARE Hypochromasia 1+ Anisocytosis 1+ PT 17.9 H INR 1.6 APTT 30.4 Specimen Type VBG pH VBG pO2 VBG HCO3 VBG Total CO2 VBG O2 Sat (Calc) VBG Base Excess POC Mix VBG pCO2 Pt Tmp O2 Delivery Device Liter Flow Sodium 128 L Potassium 3.0 L Chloride 92 L Carbon Dioxide 24.0 Anion Gap 12 BUN 78 H Creatinine 2.56 H Estim Creat Clear Calc 25.65 Est GFR (MDRD) Af Amer 29 L Est GFR (MDRD) Non-Af 24 L BUN/Creatinine Ratio 30.5 H Glucose 86 Lactic Acid Calcium 7.3 L Phosphorus Magnesium Iron TIBC Iron Saturation Ferritin Total Bilirubin 0.80 AST 24 ALT 9 L Alkaline Phosphatase 106 Total Creatine Kinase 23 L Total Protein 6.6 Albumin 1.4 L Globulin 5.2 H Albumin/Globulin Ratio 0.3 L Vitamin B12 Folate Urine Color Urine Clarity Urine pH Ur Specific [place] U Specif Grav (Refrac) Urine Protein Urine Glucose (UA) Urine Ketones Urine Occult Blood Urine Nitrite Urine Bilirubin Urine Urobilinogen Ur Leukocyte Esterase Urine RBC Urine WBC Ur Squamous Epith Cells Ur Transition Epith Cell Ur Renal Epithelial Cell Calcium Oxalate Crystal Uric Acid Crystals Triple Phos Crystals Other Crystals Amorphous Sediment Urine Bacteria Hyaline Casts Fine Granular Casts Coarse Granular Casts Waxy Casts RBC Casts WBC Casts Urine Mucus Urine Trichomonas Urine Yeast Urine Opiates Screen Urine Methadone Screen Ur Barbiturates Screen Ur Phencyclidine Scrn Ur Amphetamines Screen U Methamphetamin-MDMA U Benzodiazepines Scrn Urine Cocaine Screen U Cannabinoids Screen Ur Drug Screen Comment Hepatitis A IgM Ab Hepatitis A Ab Total Hep Bs Antigen Hep B Core Total Ab Hep B Core IgM Ab HIV 1&2 Antibody MRSA (PCR) Miscellaneous Test Blood Type Antibody Screen Crossmatch 03/01/21 03/01/21 03/01/21 09:38 11:25 11:25 WBC RBC Hgb Hct MCV MCH MCHC RDW Std Deviation RDW Coeff of [place]iffanie Plt Count MPV Immature Gran % (Auto) Neut % (Auto) Lymph % (Auto) [place] % (Auto) Eos % (Auto) Baso % (Auto) Absolute Neuts (auto) Absolute Lymphs (auto) Nucleated RBC % Differential Comment Diff Path Review Platelet Estimate Polychromasia Hypochromasia Anisocytosis PT INR APTT Specimen Type VBG pH VBG pO2 VBG HCO3 VBG Total CO2 VBG O2 Sat (Calc) VBG Base Excess POC Mix VBG pCO2 Pt Tmp O2 Delivery Device Liter Flow Sodium Potassium Chloride Carbon Dioxide Anion Gap BUN Creatinine Estim Creat Clear Calc Est GFR (MDRD) Af Amer Est GFR (MDRD) Non-Af BUN/Creatinine Ratio Glucose Lactic Acid 2.9 H* Calcium Phosphorus Magnesium Iron TIBC Iron Saturation Ferritin Total Bilirubin AST ALT Alkaline Phosphatase Total Creatine Kinase Total Protein Albumin Globulin Albumin/Globulin Ratio Vitamin B12 Folate Urine Color Urine Clarity Urine pH Ur Specific [place] U Specif Grav (Refrac) Urine Protein Urine Glucose (UA) Urine Ketones Urine Occult Blood Urine Nitrite Urine Bilirubin Urine Urobilinogen Ur Leukocyte Esterase Urine RBC Urine WBC Ur Squamous Epith Cells Ur Transition Epith Cell Ur Renal Epithelial Cell Calcium Oxalate Crystal Uric Acid Crystals Triple Phos Crystals Other Crystals Amorphous Sediment Urine Bacteria Hyaline Casts Fine Granular Casts Coarse Granular Casts Waxy Casts RBC Casts WBC Casts Urine Mucus Urine Trichomonas Urine Yeast Urine Opiates Screen Urine Methadone Screen Ur Barbiturates Screen Ur Phencyclidine Scrn Ur Amphetamines Screen U Methamphetamin-MDMA U Benzodiazepines Scrn Urine Cocaine Screen U Cannabinoids Screen Ur Drug Screen Comment Hepatitis A IgM Ab Hepatitis A Ab Total Hep Bs Antigen Hep B Core Total Ab Hep B Core IgM Ab HIV 1&2 Antibody MRSA (PCR) Miscellaneous Test Blood Type A NEGATIVE Antibody Screen NEGATIVE Crossmatch See Detail 03/01/21 03/01/21 03/01/21 11:25 11:32 14:30 WBC RBC Hgb Hct MCV MCH MCHC RDW Std Deviation RDW Coeff of [place]anie Plt Count MPV Immature Gran % (Auto) Neut % (Auto) Lymph % (Auto) [place] % (Auto) Eos % (Auto) Baso % (Auto) Absolute Neuts (auto) Absolute Lymphs (auto) Nucleated RBC % Differential Comment Diff Path Review Platelet Estimate Polychromasia Hypochromasia Anisocytosis PT INR APTT Specimen Type EVELYN VBG pH 7.55 H VBG pO2 36 VBG HCO3 22 VBG Total CO2 23 VBG O2 Sat (Calc) 79 H VBG Base Excess 0 POC Mix VBG pCO2 Pt Tmp 25.2 L O2 Delivery Device Cannula Liter Flow 2.0 Sodium Potassium Chloride Carbon Dioxide Anion Gap BUN Creatinine Estim Creat Clear Calc Est GFR (MDRD) Af Amer Est GFR (MDRD) Non-Af BUN/Creatinine Ratio Glucose Lactic Acid 1.2 Calcium Phosphorus Magnesium Iron TIBC Iron Saturation Ferritin Total Bilirubin AST ALT Alkaline Phosphatase Total Creatine Kinase Total Protein Albumin Globulin Albumin/Globulin Ratio Vitamin B12 Folate Urine Color Urine Clarity Urine pH Ur Specific [place] U Specif Grav (Refrac) Urine Protein Urine Glucose (UA) Urine Ketones Urine Occult Blood Urine Nitrite Urine Bilirubin Urine Urobilinogen Ur Leukocyte Esterase Urine RBC Urine WBC Ur Squamous Epith Cells Ur Transition Epith Cell Ur Renal Epithelial Cell Calcium Oxalate Crystal Uric Acid Crystals Triple Phos Crystals Other Crystals Amorphous Sediment Urine Bacteria Hyaline Casts Fine Granular Casts Coarse Granular Casts Waxy Casts RBC Casts WBC Casts Urine Mucus Urine Trichomonas Urine Yeast Urine Opiates Screen Urine Methadone Screen Ur Barbiturates Screen Ur Phencyclidine Scrn Ur Amphetamines Screen U Methamphetamin-MDMA U Benzodiazepines Scrn Urine Cocaine Screen U Cannabinoids Screen Ur Drug Screen Comment Hepatitis A IgM Ab Hepatitis A Ab Total Hep Bs Antigen Hep B Core Total Ab Hep B Core IgM Ab HIV 1&2 Antibody MRSA (PCR) Miscellaneous Test Blood Type Antibody Screen Crossmatch See Detail 03/01/21 03/01/21 03/01/21 16:00 16:00 16:00 WBC RBC Hgb Hct MCV MCH MCHC RDW Std Deviation RDW Coeff of Tiffanie Plt Count MPV Immature Gran % (Auto) Neut % (Auto) Lymph % (Auto) [place] % (Auto) Eos % (Auto) Baso % (Auto) Absolute Neuts (auto) Absolute Lymphs (auto) Nucleated RBC % Differential Comment Diff Path Review Platelet Estimate Polychromasia Hypochromasia Anisocytosis PT INR APTT Specimen Type VBG pH VBG pO2 VBG HCO3 VBG Total CO2 VBG O2 Sat (Calc) VBG Base Excess POC Mix VBG pCO2 Pt Tmp O2 Delivery Device Liter Flow Sodium Potassium Chloride Carbon Dioxide Anion Gap BUN Creatinine Estim Creat Clear Calc Est GFR (MDRD) Af Amer Est GFR (MDRD) Non-Af BUN/Creatinine Ratio Glucose Lactic Acid Calcium Phosphorus Magnesium Iron TIBC Iron Saturation Ferritin Total Bilirubin AST ALT Alkaline Phosphatase Total Creatine Kinase Total Protein Albumin Globulin Albumin/Globulin Ratio Vitamin B12 Folate Urine Color Yellow Cancelled Urine Clarity Cloudy Cancelled Urine pH 5.0 Cancelled Ur Specific [place] 1.015 Cancelled U Specif Grav (Refrac) Cancelled Urine Protein 500 H Cancelled Urine Glucose (UA) Normal Cancelled Urine Ketones Negative Cancelled Urine Occult Blood 250 H Cancelled Urine Nitrite Negative Cancelled Urine Bilirubin Negative Cancelled Urine Urobilinogen Normal Cancelled Ur Leukocyte Esterase 100 H Cancelled Urine RBC 5-10 SEEN Cancelled Urine WBC 50-100 SEEN Cancelled Ur Squamous Epith Cells 0 SEEN Cancelled Ur Transition Epith Cell Cancelled Ur Renal Epithelial Cell 0-5 SEEN Cancelled Calcium Oxalate Crystal Cancelled Uric Acid Crystals Cancelled Triple Phos Crystals Cancelled Other Crystals Cancelled Amorphous Sediment Cancelled Urine Bacteria 3+ Cancelled Hyaline Casts 0-5 SEEN Cancelled Fine Granular Casts Cancelled Coarse Granular Casts 0-5 SEEN Cancelled Waxy Casts Cancelled RBC Casts Cancelled WBC Casts 5-10 SEEN Cancelled Urine Mucus 0 SEEN Cancelled Urine Trichomonas Cancelled Urine Yeast Cancelled Urine Opiates Screen POSITIVE H Urine Methadone Screen NEGATIVE Ur Barbiturates Screen NEGATIVE Ur Phencyclidine Scrn NEGATIVE Ur Amphetamines Screen NEGATIVE U Methamphetamin-MDMA NEGATIVE U Benzodiazepines Scrn NEGATIVE Urine Cocaine Screen NEGATIVE U Cannabinoids Screen NEGATIVE Ur Drug Screen Comment Hepatitis A IgM Ab Hepatitis A Ab Total Hep Bs Antigen Hep B Core Total Ab Hep B Core IgM Ab HIV 1&2 Antibody MRSA (PCR) Miscellaneous Test Blood Type Antibody Screen Crossmatch 03/01/21 03/01/21 03/01/21 17:15 17:15 17:15 WBC RBC Hgb Hct MCV MCH MCHC RDW Std Deviation RDW Coeff of [place] Plt Count MPV Immature Gran % (Auto) Neut % (Auto) Lymph % (Auto) [place] % (Auto) Eos % (Auto) Baso % (Auto) Absolute Neuts (auto) Absolute Lymphs (auto) Nucleated RBC % Differential Comment Diff Path Review Platelet Estimate Polychromasia Hypochromasia Anisocytosis PT INR APTT Specimen Type VBG pH VBG pO2 VBG HCO3 VBG Total CO2 VBG O2 Sat (Calc) VBG Base Excess POC Mix VBG pCO2 Pt Tmp O2 Delivery Device Liter Flow Sodium Potassium Chloride Carbon Dioxide Anion Gap BUN Creatinine Estim Creat Clear Calc Est GFR (MDRD) Af Amer Est GFR (MDRD) Non-Af BUN/Creatinine Ratio Glucose Lactic Acid Calcium Phosphorus 7.5 H Magnesium 1.8 Iron 11 L TIBC 200 L Iron Saturation 5.5 L Ferritin 130 Total Bilirubin AST ALT Alkaline Phosphatase Total Creatine Kinase Total Protein Albumin Globulin Albumin/Globulin Ratio Vitamin B12 Cancelled Folate 15.70 Urine Color Urine Clarity Urine pH Ur Specific [place] U Specif Grav (Refrac) Urine Protein Urine Glucose (UA) Urine Ketones Urine Occult Blood Urine Nitrite Urine Bilirubin Urine Urobilinogen Ur Leukocyte Esterase Urine RBC Urine WBC Ur Squamous Epith Cells Ur Transition Epith Cell Ur Renal Epithelial Cell Calcium Oxalate Crystal Uric Acid Crystals Triple Phos Crystals Other Crystals Amorphous Sediment Urine Bacteria Hyaline Casts Fine Granular Casts Coarse Granular Casts Waxy Casts RBC Casts WBC Casts Urine Mucus Urine Trichomonas Urine Yeast Urine Opiates Screen Urine Methadone Screen Ur [place] Screen Ur Phencyclidine Scrn Ur Amphetamines Screen U Methamphetamin-MDMA U Benzodiazepines Scrn Urine Cocaine Screen U Cannabinoids Screen Ur Drug Screen Comment Hepatitis A IgM Ab Pending Hepatitis A Ab Total Pending Hep Bs Antigen Pending Hep B Core Total Ab Pending Hep B Core IgM Ab Pending HIV 1&2 Antibody Preliminary Reactive H MRSA (PCR) Miscellaneous Test Blood Type Antibody Screen Crossmatch 03/01/21 03/01/21 03/01/21 17:15 17:15 17:15 WBC RBC Hgb 5.5 L* Hct 17.4 L MCV MCH MCHC RDW Std Deviation RDW Coeff of [place] Plt Count MPV Immature Gran % (Auto) Neut % (Auto) Lymph % (Auto) [place] % (Auto) Eos % (Auto) Baso % (Auto) Absolute Neuts (auto) Absolute Lymphs (auto) Nucleated RBC % Differential Comment Diff Path Review Platelet Estimate Polychromasia Hypochromasia Anisocytosis PT INR APTT Specimen Type VBG pH VBG pO2 VBG HCO3 VBG Total CO2 VBG O2 Sat (Calc) VBG Base Excess POC Mix VBG pCO2 Pt Tmp O2 Delivery Device Liter Flow Sodium Potassium Chloride Carbon Dioxide Anion Gap BUN Creatinine Estim Creat Clear Calc Est GFR (MDRD) Af Amer Est GFR (MDRD) Non-Af BUN/Creatinine Ratio Glucose Lactic Acid Calcium Phosphorus Magnesium Iron TIBC Iron Saturation Ferritin Total Bilirubin AST ALT Alkaline Phosphatase Total Creatine Kinase Total Protein Albumin Globulin Albumin/Globulin Ratio Vitamin B12 Pending Folate Urine Color Urine Clarity Urine pH Ur Specific [place] U Specif Grav (Refrac) Urine Protein Urine Glucose (UA) Urine Ketones Urine Occult Blood Urine Nitrite Urine Bilirubin Urine Urobilinogen Ur Leukocyte Esterase Urine RBC Urine WBC Ur Squamous Epith Cells Ur Transition Epith Cell Ur Renal Epithelial Cell Calcium Oxalate Crystal Uric Acid Crystals Triple Phos Crystals Other Crystals Amorphous Sediment Urine Bacteria Hyaline Casts Fine Granular Casts Coarse Granular Casts Waxy Casts RBC Casts WBC Casts Urine Mucus Urine Trichomonas Urine Yeast Urine Opiates Screen Urine Methadone Screen Ur [place] Screen Ur Phencyclidine Scrn Ur Amphetamines Screen U Methamphetamin-MDMA U Benzodiazepines Scrn Urine Cocaine Screen U Cannabinoids Screen Ur Drug Screen Comment Hepatitis A IgM Ab Hepatitis A Ab Total Hep Bs Antigen Hep B Core Total Ab Hep B Core IgM Ab HIV 1&2 Antibody MRSA (PCR) POSITIVE H Miscellaneous Test Blood Type Antibody Screen Crossmatch 03/01/21 03/01/21 03/02/21 17:15 23:45 03:45 WBC 15.0 H RBC 3.00 L Hgb 8.1 L 8.3 L Hct 24.7 L 25.4 L MCV 84.7 MCH 27.7 MCHC 32.7 RDW Std Deviation 53.4 H RDW Coeff of [place]iff[place] 17.3 H Plt Count 110 L MPV 11.1 Immature Gran % (Auto) Neut % (Auto) Lymph % (Auto) [place] % (Auto) Eos % (Auto) Baso % (Auto) Absolute Neuts (auto) Absolute Lymphs (auto) Nucleated RBC % Differential Comment Diff Path Review Platelet Estimate Polychromasia Hypochromasia Anisocytosis PT INR APTT Specimen Type VBG pH VBG pO2 VBG HCO3 VBG Total CO2 VBG O2 Sat (Calc) VBG Base Excess POC Mix VBG pCO2 Pt Tmp O2 Delivery Device Liter Flow Sodium Potassium Chloride Carbon Dioxide Anion Gap BUN Creatinine Estim Creat Clear Calc Est GFR (MDRD) Af Amer Est GFR (MDRD) Non-Af BUN/Creatinine Ratio Glucose Lactic Acid Calcium Phosphorus Magnesium Iron TIBC Iron Saturation Ferritin Total Bilirubin AST ALT Alkaline Phosphatase Total Creatine Kinase Total Protein Albumin Globulin Albumin/Globulin Ratio Vitamin B12 Folate Urine Color Urine Clarity Urine pH Ur Specific [place] U Specif Grav (Refrac) Urine Protein Urine Glucose (UA) Urine Ketones Urine Occult Blood Urine Nitrite Urine Bilirubin Urine Urobilinogen Ur Leukocyte Esterase Urine RBC Urine WBC Ur Squamous Epith Cells Ur Transition Epith Cell Ur Renal Epithelial Cell Calcium Oxalate Crystal Uric Acid Crystals Triple Phos Crystals Other Crystals Amorphous Sediment Urine Bacteria Hyaline Casts Fine Granular Casts Coarse Granular Casts Waxy Casts RBC Casts WBC Casts Urine Mucus Urine Trichomonas Urine Yeast Urine Opiates Screen Urine Methadone Screen Ur [place] Screen Ur Phencyclidine Scrn Ur Amphetamines Screen U Methamphetamin-MDMA U Benzodiazepines Scrn Urine Cocaine Screen U Cannabinoids Screen Ur Drug Screen Comment Hepatitis A IgM Ab Hepatitis A Ab Total Hep Bs Antigen Hep B Core Total Ab Hep B Core IgM Ab HIV 1&2 Antibody MRSA (PCR) Miscellaneous Test Pending Blood Type Antibody Screen Crossmatch 03/02/21 03:45 WBC RBC Hgb Hct MCV MCH MCHC RDW Std Deviation RDW Coeff of [place]iff[place] Plt Count MPV Immature Gran % (Auto) Neut % (Auto) Lymph % (Auto) [place] % (Auto) Eos % (Auto) Baso % (Auto) Absolute Neuts (auto) Absolute Lymphs (auto) Nucleated RBC % Differential Comment Diff Path Review Platelet Estimate Polychromasia Hypochromasia Anisocytosis PT INR APTT Specimen Type VBG pH VBG pO2 VBG HCO3 VBG Total CO2 VBG O2 Sat (Calc) VBG Base Excess POC Mix VBG pCO2 Pt Tmp O2 Delivery Device Liter Flow Sodium 131 L Potassium 3.6 Chloride 100 Carbon Dioxide 22.0 Anion Gap 9 BUN 76 H Creatinine 2.53 H Estim Creat Clear Calc 25.95 Est GFR (MDRD) Af Amer 29 L Est GFR (MDRD) Non-Af 24 L BUN/Creatinine Ratio 30.0 H Glucose 125 H Lactic Acid Calcium 6.8 L Phosphorus Magnesium Iron TIBC Iron Saturation Ferritin Total Bilirubin AST ALT Alkaline Phosphatase Total Creatine Kinase Total Protein Albumin Globulin Albumin/Globulin Ratio Vitamin B12 Folate Urine Color Urine Clarity Urine pH Ur Specific [place] U Specif Grav (Refrac) Urine Protein Urine Glucose (UA) Urine Ketones Urine Occult Blood Urine Nitrite Urine Bilirubin Urine Urobilinogen Ur Leukocyte Esterase Urine RBC Urine WBC Ur Squamous Epith Cells Ur Transition Epith Cell Ur Renal Epithelial Cell Calcium Oxalate Crystal Uric Acid Crystals Triple Phos Crystals Other Crystals Amorphous Sediment Urine Bacteria Hyaline Casts Fine Granular Casts Coarse Granular Casts Waxy Casts RBC Casts WBC Casts Urine Mucus Urine Trichomonas Urine Yeast Urine Opiates Screen Urine Methadone Screen Ur [place] Screen Ur Phencyclidine Scrn Ur Amphetamines Screen U Methamphetamin-MDMA U Benzodiazepines Scrn Urine Cocaine Screen U Cannabinoids Screen Ur Drug Screen Comment Hepatitis A IgM Ab Hepatitis A Ab Total Hep Bs Antigen Hep B Core Total Ab Hep B Core IgM Ab HIV 1&2 Antibody MRSA (PCR) Miscellaneous Test Blood Type Antibody Screen Crossmatch Microbiology 03/01/21 11:00 Blood Culture (Wb) - Anticubital Left Blood Culture - Preliminary 03/01/21 09:38 Blood Culture (Wb) - Anticubital Left Bacteria Detection (PCR) - Preliminary Staphylococcus aureus mecA Resistance Marker 03/01/21 09:38 Blood Culture (Wb) - Anticubital Left Blood Culture - Preliminary 03/01/21 16:00 Urine Catheter - Catheter Legionella Antigen - Final 03/01/21 16:00 Urine Catheter - Catheter Streptococcus pneumoniae Antigen (M - Final 03/01/21 10:25 Mucosa - Nose SARS-CoV-2 Antigen (Rapid) - Final Clinical Impression(s) from Imaging Studies Chest X-Ray 03/01/21 09:42 IMPRESSION: 1. Interval placement of a right internal jugular deep venous line with tip the catheter overlying the superior vena cava with no pneumothorax. 2. No change in bilateral patchy pneumonia or possibly pulmonary nodules. Correlation with CT the chest with contrast would be useful. Electronically Signed: Edi Irvin MD at 15:22 EDT Tel , Service support , Lumbar Spine MRI 03/01/21 09:45 IMPRESSION: Normal enhanced and unenhanced MR examination of the lumbar spine. Electronically Signed: Edi Irvin MD at 14:45 EDT Tel , Service support , Thoracic Spine MRI 03/01/21 09:45 IMPRESSION: Normal unenhanced and enhanced MRI examination of the thoracic spine. Electronically Signed: Edi Irvin MD at 13:58 EDT Tel , Service support , Chest CT 03/01/21 14:57 IMPRESSION: 1. Multiple pulmonary nodular opacities consistent with history of septic emboli. Pneumonia could be considered in the appropriate clinical setting. Electronically Signed: Soco Powell MD at 17:56 EDT Tel , Service support , Current Medications Acetaminophen (Acetaminophen 650 Mg Suppository) 650 mg RC Q4H PRN PRN PRN Reason: Pain Score 1-10/Temp > 100.7 F Albuterol Sulfate (Albuterol 2.5 Mg/3 Ml Vial.Neb.) 2.5 mg INHALATION Q2H PRN PRN PRN Reason: SOB/Wheezing Albuterol/Ipratropium (Ipratropium/Albuterol Sulfate 3 Ml Ampul.Neb) 3 ml INHALATION Q4H.[facility] Last Admin: 03/01/21 22:55 Dose: 3 ml Documented by: Buprenorphine HCl (Buprenorphine Hcl 2 Mg Tab.Subl) 4 mg SL Q8H SCOTT; Taper Stop: 03/06/21 00:14 Clonidine (Clonidine Hcl 0.1 Mg Tablet) 0.1 mg PO Q8H PRN PRN PRN Reason: RESTLESSNESS Last Admin: 03/02/21 01:45 Dose: 0.1 mg Documented by: Dicyclomine HCl (Dicyclomine 10 Mg Capsule) 20 mg PO Q6H PRN PRN PRN Reason: Abdominal Discomfort Gabapentin (Gabapentin 300 Mg Capsule) 300 mg PO Q8H PRN PRN PRN Reason: moderate to severe anxiety Last Admin: 03/02/21 01:45 Dose: 300 mg Documented by: Hydroxyzine Pamoate (Hydroxyzine Moira 25 Mg Capsule) 50 mg PO Q6H PRN PRN PRN Reason: mild anxiety Sodium Chloride () 250 mls @ 15 mls/hr IV .[id number] PRN PRN Reason: Saline Flush Sodium Chloride () 250 mls @ 15 mls/hr IV .[id number] PRN PRN Reason: Additional IVPB Infusion Sodium Chloride () 1,000 mls @ 125 mls/hr IV .Q8H [facility] Last Admin: 03/02/21 01:11 Dose: 125 mls/hr Documented by: Piperacillin Sod/Tazobactam (Sod 3.375 gm/ Sodium Chloride) 50 mls @ 12.5 mls/hr IV Q8 [facility] Stop: 03/08/21 22:01 Last Admin: 03/02/21 05:20 Dose: 12.5 mls/hr Documented by: Pantoprazole Sodium 40 mg/ (Sodium Chloride) 110 mls @ 330 mls/hr IV Q12 [facility] Last Infusion: 03/01/21 22:22 Dose: Infused Documented by: Vancomycin IV Pharmacy to Dose (1 each/ Sodium Chloride) 500 mls @ 250 mls/hr IV X1 PRN; Protocol PRN Reason: Rx to Dose Vancomycin HCl () 500 mg in 100 mls @ 100 mls/hr IV Q24H [facility] Loperamide HCl (Loperamide 2 Mg Capsule) 2 mg PO Q4H PRN PRN PRN Reason: LOOSE STOOLS Methocarbamol (Methocarbamol 750 Mg Tablet) 1,500 mg PO Q6H PRN PRN PRN Reason: MUSCLE SPASM Last Admin: 03/02/21 01:45 Dose: 1,500 mg Documented by: Ondansetron HCl (Ondansetron 4 Mg/2 Ml Vial) 4 mg IV Q8H PRN PRN PRN Reason: NAUSEA/VOMITING Ondansetron HCl (Ondansetron 8 Mg Tablet) 8 mg PO Q8H PRN PRN PRN Reason: NAUSEA Sodium Chloride (0.9% Saline Lock 10 Ml Syringe) 10 - 40 ml IV UD PRN PRN Reason: SALINE FLUSH Last Admin: 03/02/21 05:20 Dose: 30 ml Documented by: Trazodone HCl (Trazodone 100 Mg Tablet) 100 mg PO QHS PRN PRN PRN Reason: INSOMNIA Last Admin: 03/02/21 01:45 Dose: 100 mg Documented by: Assessment/Plan Active and Suspected Problems Opiate withdrawal (Acute) Severe sepsis (Acute) Bilateral pneumonia (Acute) Lactic acidosis (Acute) Acute respiratory failure with hypoxia (Acute) RECOMMENDATIONS: 1. Continue IV antimicrobials as ordered. 2. Continuous supplemental IV fluid hydration. 3. Patient to remain n.p.o. 4. Opiate withdrawal protocol. 5. Obtain urgent echocardiogram to evaluate for the presence of endocarditis. 6. Continue to monitor H&H. Transfuse if hemoglobin drops below 7 g/dL. 7. Continue Protonix therapy. IMPRESSIONS: 1. Severe sepsis secondary to MRSA bacteremia in the setting of IV drug abuse The patient did have MRSA isolated from a blood culture in mid January when she was evaluated in the emergency department. The patient refused admission to the hospital at that time and was discharged home on antibiotics. It is unclear whether the patient actually took the prescribed antimicrobials. The patient is once again positive for MRSA in her blood cultures. She has been appropriately volume resuscitated. Fluids will be continued accordingly. In addition, antimicrobials will be continued as ordered. Echocardiogram has been ordered to evaluate for the presence of endocarditis. 2. Acute hypoxemic respiratory failure, likely secondary to bilateral septic emboli The patient does currently have a supplemental oxygen requirement on nasal cannula but is profoundly tachypneic. Her CT chest did reveal findings consistent with septic emboli. Her respiratory status at this time is quite tenuous. Plan to continue current supportive measures. She was just placed on the opiate withdrawal protocol this morning. However, if the patient continues to remain profoundly tachypneic, she would be at high risk for the potential need for intubation. 3. Anemia Unclear etiology. The patient was noted to have a hemoglobin of 7.1 g/dL on February 01 during her emergency department visit. Again, she refused hospital admission and was discharged home on iron supplementation. There are no overt signs of blood loss at this time. The patient did receive transfusion of blood products with appropriate improvement in her blood counts. She will remain on PPI therapy. General surgery is following. Continue to monitor H&H daily and transfuse if hemoglobin drops below 7 g/dL. 4. Acute kidney injury/hyponatremia Likely secondary to hypokalemia. The patient will be continued on supplemental IV fluids as ordered. Continue to monitor urine output for now. No current indication for renal replacement therapy. 5. Possible HIV/history of hepatitis C The patient does have a known history of hepatitis C and did have preliminary reactive antibody testing to HIV on this hospital admission. Confirmatory testing is pending. If confirmatory testing is positive, recommend infectious diseases consultation. 6. History of heroin dependency with acute withdrawal The patient reportedly used heroin 3 to 4 days prior to her hospital admission. She is currently demonstrating acute withdrawal symptoms. Accordingly, she was started on the opiate withdrawal protocol, which will be continued. 7. Tobacco dependency/possible asthma/anxiety/depression Complicates care, management, recovery and prognosis. Continue as needed bronchodilator therapy. Patient to remain n.p.o. for now given tenuous respiratory status. This note was generated with [employer] dictation software. It may contain incorrect words, spelling, and punctuation that were not noted in checking the note before signing.
--- NOTE | 2021-03-02 05:44 | ECHOD_ITS ---
Reason For Study: ENDOCARDITIS Procedure This was a 2D Doppler, Color Flow transthoracic echocardiogram. Patient was scanned in supine position during reflux assessment. Exam performed portable in ICU/CCU. Left Ventricle Normal LV size. Left ventricular systolic function is normal. The estimated ejection fraction is 65 %. Unable to assess diastolic dysfunction. No regional wall motion abnormalities noted. Right Ventricle Normal RV size. Normal systolic function. Atria Normal left atrium. Normal right atrium. Aneurysmal atrial septum. Mitral Valve There is no mitral annular calcification. Mild diffuse mitral valve thickening. Mild (1+) mitral valve insufficiency. Tricuspid Valve Mild diffuse thickening of the tricuspid valve. 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 Moderate (2+) tricuspid valve insufficiency. Right ventricular systolic pressure estimated to be 77 mmHg. Severe pulmonary hypertension. Aortic Valve Trisinus/trileaflet aortic valve. Mild diffuse aortic valve thickening. Pulmonic Valve The pulmonic valve is not well visualized. Great Vessels Normal sized aortic root. Pericardium/Pleural Small pericardial effusion. There are no echocardiographic indications of cardiac tamponade. MMode/2D Measurements & Calculations LVIDd: 5.1 cm IVSd: 0.84 cm Ao root diam: 3.1 cm LVIDs: 3.4 cm LVPWd: 0.86 cm LA dimension: 3.3 cm FS: 33.0 % LAV(MOD-bp): 43.1 ml LVAd ap4: 30.7 cm2 SV(MOD-sp4): 53.1 ml LAV(MOD-bp) Indexed: 27.1 ml/m2 EDV(MOD-sp4): 96.0 ml LAV(MOD-sp2): 43.9 ml EDV(sp4-el): 94.9 ml LAV(MOD-sp4): 41.2 ml LVAs ap4: 18.5 cm2 ESV(MOD-sp4): 42.9 ml ESV(sp4-el): 42.6 ml EF(MOD-sp4): 55.3 % EF(sp4-el): 55.2 % SV(sp4-el): 52.4 ml LA A4 area: 15.5 cm2 RA A4 area: 15.2 cm2 Doppler Measurements & Calculations Lat Peak E' Fabricio: 19.6 cm/sec Med Peak E' Fabricio: 9.4 cm/sec Ao V2 max: 152.8 cm/sec Ao max P.4 mmHg LV V1 max: 125.3 cm/sec TR max fabricio: 415.2 cm/sec LV V1 max P.3 mmHg TR max P.0 mmHg ECHO/Echo Complete Interpretation Summary Left ventricular systolic function is normal. The estimated ejection fraction is 65 %. Aneurysmal atrial septum. Mild diffuse mitral valve thickening. Mild (1+) mitral valve insufficiency. Mild diffuse thickening of the tricuspid valve. 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 Moderate (2+) tricuspid valve insufficiency. Mild diffuse aortic valve thickening. Small pericardial effusion. There are no echocardiographic indications of cardiac tamponade. Right ventricular systolic pressure estimated to be 77 mmHg. Severe pulmonary hypertension. Unable to assess diastolic dysfunction. Comment: The aforementioned findings were discussed and reviewed with Dr. Lou and Dr. Cox. Ordering Physician: Russel Lou Referring Physician: TEJAS GEORGES Performed By: Aline Shetty RDCS, RVT
[2021-03-02] MEDS: Buprenorphine HCl 2 MG TAB.SUBL 4 MG SL (06:23)
--- NOTE | 2021-03-02 07:48 | PCM.PN.HOSP ---
Patient Problems: Active and Suspected Problems Opiate withdrawal (Acute) Severe sepsis (Acute) Bilateral pneumonia (Acute) Lactic acidosis (Acute) Acute respiratory failure with hypoxia (Acute) Vitals/I&O's: Vital Signs Temp Pulse Resp BP Pulse Ox 101.4 F H 127 H 35 H 132/79 H 90 03/02/21 05:00 03/02/21 07:27 03/02/21 07:27 03/02/21 06:00 03/02/21 07:27 Oxygen Flow Rate (L/min) 3 Oxygen Delivery Method Nasal Cannula Weight: 130 lb 11.746 oz Body Mass Index (BMI) 22.1 Finger Stick Blood Glucose 80 Intake and Output for Last 24 Hours 02/28/21 03/01/21 03/02/21 23:59 23:59 23:59 Intake Total 3755 / 4115 1405.83 / 1405.83 Output Total 475 / 555 320 / 320 Balance 3280 / 3560 1085.83 / 1085.83 Microbiology Past 72 Hours 03/01/21 09:38 Blood Culture (Wb) - Anticubital Left Bacteria Detection (PCR) - Final Staphylococcus aureus mecA Resistance Marker 03/01/21 09:38 Blood Culture (Wb) - Anticubital Left Blood Culture - Preliminary 03/01/21 11:00 Blood Culture (Wb) - Anticubital Left Blood Culture - Preliminary 03/01/21 16:00 Urine Catheter - Catheter Legionella Antigen - Final 03/01/21 16:00 Urine Catheter - Catheter Streptococcus pneumoniae Antigen (M - Final 03/01/21 10:25 Mucosa - Nose SARS-CoV-2 Antigen (Rapid) - Final Laboratory Results 03/01/21 09:38: WBC 13.7 H, RBC 2.05 L, Hgb 5.6 L*, Hct 17.5 L, MCV 85.4, MCH 27.3, MCHC 32.0, RDW Std Deviation 60.5 H, RDW Coeff of Tiffanie 19.6 H, Plt Count 157, MPV 10.4, Immature Gran % (Auto) 2.000 H, Neut % (Auto) 82.8 H, Lymph % (Auto) 10.8 L, [place] % (Auto) 4.2, Eos % (Auto) 0.1, Baso % (Auto) 0.1, Absolute Neuts (auto) 11.3 H, Absolute Lymphs (auto) 1.48, Nucleated RBC % 0, Differential Comment SCANNED, Diff Path Review Reviewed, Platelet Estimate ADEQUATE, Polychromasia RARE, Hypochromasia 1+, Anisocytosis 1+ 03/01/21 09:38: PT 17.9 H, INR 1.6, APTT 30.4 03/01/21 09:38: Sodium 128 L, Potassium 3.0 L, Chloride 92 L, Carbon Dioxide 24.0, Anion Gap 12, BUN 78 H, Creatinine 2.56 H, Estim Creat Clear Calc 25.65, Est GFR (MDRD) Af Amer 29 L, Est GFR (MDRD) Non-Af 24 L, BUN/Creatinine Ratio 30.5 H, Glucose 86, Calcium 7.3 L, Total Bilirubin 0.80, AST 24, ALT 9 L, Alkaline Phosphatase 106, Total Creatine Kinase 23 L, Total Protein 6.6, Albumin 1.4 L, Globulin 5.2 H, Albumin/Globulin Ratio 0.3 L 03/01/21 09:38: Lactic Acid 2.9 H* 03/01/21 11:25: Blood Type A NEGATIVE, Antibody Screen NEGATIVE 03/01/21 11:25: Crossmatch See Detail 03/01/21 11:25: Crossmatch See Detail 03/01/21 11:32: Specimen Type EVELYN, VBG pH 7.55 H, VBG pO2 36, VBG HCO3 22, VBG Total CO2 23, VBG O2 Sat (Calc) 79 H, VBG Base Excess 0, POC Mix VBG pCO2 Pt Tmp 25.2 L, O2 Delivery Device Cannula, Liter Flow 2.0 03/01/21 14:30: Lactic Acid 1.2 03/01/21 16:00: Urine Color Yellow, Urine Clarity Cloudy, Urine pH 5.0, Ur Specific [place] 1.015, Urine Protein 500 H, Urine Glucose (UA) Normal, Urine Ketones Negative, Urine Occult Blood 250 H, Urine Nitrite Negative, Urine Bilirubin Negative, Urine Urobilinogen Normal, Ur Leukocyte Esterase 100 H, Urine RBC 5-10 SEEN, Urine WBC 50-100 SEEN, Ur Squamous Epith Cells 0 SEEN, Ur Renal Epithelial Cell 0-5 SEEN, Urine Bacteria 3+, Hyaline Casts 0-5 SEEN, Coarse Granular Casts 0-5 SEEN, WBC Casts 5-10 SEEN, Urine Mucus 0 SEEN 03/01/21 16:00: Urine Opiates Screen POSITIVE H, Urine Methadone Screen NEGATIVE, Ur Barbiturates Screen NEGATIVE, Ur Phencyclidine Scrn NEGATIVE, Ur Amphetamines Screen NEGATIVE, U Methamphetamin-MDMA NEGATIVE, U Benzodiazepines Scrn NEGATIVE, Urine Cocaine Screen NEGATIVE, U Cannabinoids Screen NEGATIVE, Ur Drug Screen Comment 03/01/21 16:00: Urine Color Cancelled, Urine Clarity Cancelled, Urine pH Cancelled, Ur Specific [place] Cancelled, U Specif Grav (Refrac) Cancelled, Urine Protein Cancelled, Urine Glucose (UA) Cancelled, Urine Ketones Cancelled, Urine Occult Blood Cancelled, Urine Nitrite Cancelled, Urine Bilirubin Cancelled, Urine Urobilinogen Cancelled, Ur Leukocyte Esterase Cancelled, Urine RBC Cancelled, Urine WBC Cancelled, Ur Squamous Epith Cells Cancelled, Ur Transition Epith Cell Cancelled, Ur Renal Epithelial Cell Cancelled, Calcium Oxalate Crystal Cancelled, Uric Acid Crystals Cancelled, Triple Phos Crystals Cancelled, Other Crystals Cancelled, Amorphous Sediment Cancelled, Urine Bacteria Cancelled, Hyaline Casts Cancelled, Fine Granular Casts Cancelled, Coarse Granular Casts Cancelled, Waxy Casts Cancelled, RBC Casts Cancelled, WBC Casts Cancelled, Urine Mucus Cancelled, Urine Trichomonas Cancelled, Urine Yeast Cancelled 03/01/21 17:15: Phosphorus 7.5 H, Magnesium 1.8, Iron 11 L, TIBC 200 L, Iron Saturation 5.5 L, Ferritin 130, Folate 15.70 03/01/21 17:15: Hepatitis A IgM Ab Pending, Hepatitis A Ab Total Pending, Hep Bs Antigen Pending, Hep B Core Total Ab Pending, Hep B Core IgM Ab Pending 03/01/21 17:15: Vitamin B12 Cancelled, HIV 1&2 Antibody Preliminary Reactive H 03/01/21 17:15: Hgb 5.5 L*, Hct 17.4 L 03/01/21 17:15: MRSA (PCR) POSITIVE H 03/01/21 17:15: Vitamin B12 Pending 03/01/21 17:15: Miscellaneous Test Pending 03/01/21 23:45: Hgb 8.1 L, Hct 24.7 L 03/02/21 03:45: WBC 15.0 H, RBC 3.00 L, Hgb 8.3 L, Hct 25.4 L, MCV 84.7, MCH 27.7, MCHC 32.7, RDW Std Deviation 53.4 H, RDW Coeff of Tiffanie 17.3 H, Plt Count 110 L, MPV 11.1 03/02/21 03:45: Sodium 131 L, Potassium 3.6, Chloride 100, Carbon Dioxide 22.0, Anion Gap 9, BUN 76 H, Creatinine 2.53 H, Estim Creat Clear Calc 25.95, Est GFR (MDRD) Af Amer 29 L, Est GFR (MDRD) Non-Af 24 L, BUN/Creatinine Ratio 30.0 H, Glucose 125 H, Calcium 6.8 L Current Medications Acetaminophen (Acetaminophen 650 Mg Suppository) 650 mg RC Q4H PRN PRN PRN Reason: Pain Score 1-10/Temp > 100.7 F Albuterol Sulfate (Albuterol 2.5 Mg/3 Ml Vial.Neb.) 2.5 mg INHALATION Q2H PRN PRN PRN Reason: SOB/Wheezing Albuterol/Ipratropium (Ipratropium/Albuterol Sulfate 3 Ml Ampul.Neb) 3 ml INHALATION Q4H.RT [facility] Last Admin: 03/01/21 22:55 Dose: 3 ml Documented by: Buprenorphine HCl (Buprenorphine Hcl 2 Mg Tab.Subl) 4 mg SL Q8H [facility]; Taper Stop: 03/05/21 06:14 Last Admin: 03/02/21 06:23 Dose: 4 mg Documented by: Clonidine (Clonidine Hcl 0.1 Mg Tablet) 0.1 mg PO Q8H PRN PRN PRN Reason: RESTLESSNESS Last Admin: 03/02/21 01:45 Dose: 0.1 mg Documented by: Dicyclomine HCl (Dicyclomine 10 Mg Capsule) 20 mg PO Q6H PRN PRN PRN Reason: Abdominal Discomfort Gabapentin (Gabapentin 300 Mg Capsule) 300 mg PO Q8H PRN PRN PRN Reason: moderate to severe anxiety Last Admin: 03/02/21 01:45 Dose: 300 mg Documented by: Hydroxyzine Pamoate (Hydroxyzine Moira 25 Mg Capsule) 50 mg PO Q6H PRN PRN PRN Reason: mild anxiety Sodium Chloride () 250 mls @ 15 mls/hr IV .[id number] PRN PRN Reason: Saline Flush Sodium Chloride () 250 mls @ 15 mls/hr IV .[id number] PRN PRN Reason: Additional IVPB Infusion Sodium Chloride () 1,000 mls @ 125 mls/hr IV .Q8H [facility] Last Admin: 03/02/21 01:11 Dose: 125 mls/hr Documented by: Piperacillin Sod/Tazobactam (Sod 3.375 gm/ Sodium Chloride) 50 mls @ 12.5 mls/hr IV Q8 [facility] Stop: 03/08/21 22:01 Last Admin: 03/02/21 05:20 Dose: 12.5 mls/hr Documented by: Pantoprazole Sodium 40 mg/ (Sodium Chloride) 110 mls @ 330 mls/hr IV Q12 [facility] Last Infusion: 03/01/21 22:22 Dose: Infused Documented by: Vancomycin IV Pharmacy to Dose (1 each/ Sodium Chloride) 500 mls @ 250 mls/hr IV X1 PRN; Protocol PRN Reason: Rx to Dose Vancomycin HCl () 500 mg in 100 mls @ 100 mls/hr IV Q24H [facility] Loperamide HCl (Loperamide 2 Mg Capsule) 2 mg PO Q4H PRN PRN PRN Reason: LOOSE STOOLS Methocarbamol (Methocarbamol 750 Mg Tablet) 1,500 mg PO Q6H PRN PRN PRN Reason: MUSCLE SPASM Last Admin: 03/02/21 01:45 Dose: 1,500 mg Documented by: Ondansetron HCl (Ondansetron 4 Mg/2 Ml Vial) 4 mg IV Q8H PRN PRN PRN Reason: NAUSEA/VOMITING Ondansetron HCl (Ondansetron 8 Mg Tablet) 8 mg PO Q8H PRN PRN PRN Reason: NAUSEA Sodium Chloride (0.9% Saline Lock 10 Ml Syringe) 10 - 40 ml IV UD PRN PRN Reason: SALINE FLUSH Last Admin: 03/02/21 05:20 Dose: 30 ml Documented by: Trazodone HCl (Trazodone 100 Mg Tablet) 100 mg PO QHS PRN PRN PRN Reason: INSOMNIA Last Admin: 03/02/21 01:45 Dose: 100 mg Documented by: STROKE Vital Signs/Narrative: Vital Signs Temp Pulse Resp BP Pulse Ox 03/02/21 07:27 127 H 35 H 90 03/02/21 06:00 125 H 16 132/79 H 94 03/02/21 05:00 101.4 F H 124 H 27 H 124/84 H 92 03/02/21 04:00 101.5 F H 121 H 46 H 140/94 H 98 Medical Necessity - Tobacco Use Smoking Status: Current every day smoker Tobacco Use: Cigarettes Assessment/Plan All Active Problems Opiate withdrawal (Acute) Severe sepsis (Acute) Bilateral pneumonia (Acute) Lactic acidosis (Acute) Acute respiratory failure with hypoxia (Acute) Obesity (BMI 30-39.9) (Resolved) 1. Severe sepsis secondary to suspected septic emboli-lactic acid 2.9, tachycardic, tachypneic, WBC 13.7. Chest x-ray admission with bilateral patchy pneumonia. Patient undergo CT of chest in ER, pending. Blood cultures pending. Urinalysis pending. IV vancomycin and IV Zosyn. MRSA PCR. Fluids per sepsis protocol. Echo ordered. 2. Acute hypoxic respiratory failure secondary to suspected septic emboli-continue supplement oxygen to maintain O2 at above 90%. Treatment per above. Urine for strep and Legionella, sputum culture ordered. Covid negative. 3. Acute on chronic normocytic anemia-2 units PRBC ordered in ER. Check stool for occult blood. Check iron studies. Trend H&H. 4. Acute kidney injury- IV fluids, trend BMP. 5. Acute opioid withdrawal, history of polysubstance abuse/IV drug use, history of hepatitis C-reported last use 4 days ago. Given lethargy, hold off on medical stabilization protocol including Subutex taper. When medically stable, consider [employer] consult. CM consulted. 6. Lower extremity weakness with bowel incontinence-lumbar and thoracic spine MRI normal. Possibly related to severity of acute illness. PT/OT. 7. Hypokalemia-replace per protocol, trend BMP. 8. Hypovolemic hyponatremia-IV fluids, trend BMP. 9. Chronic asthma-no exacerbation. As needed albuterol aerosol. 10. Anxiety/depression-on sertraline, BuSpar. 11. GERD-on famotidine. 12. Tobacco dependence-encourage cessation. Nicotine replacement patch if desired. DVT prophylaxis-SCDs
--- NOTE | 2021-03-02 10:49 | CASEMGMT ---
According to [facility] website, the following tertiary facilities are in network: [facility], [place], [facility], [facility], [facility], [facility], [place], [facility] and .
[2021-03-02] MEDS: Vancomycin IV 500 MG/100 ML BAG 100 MG IV (12:23)
--- NOTE | 2021-03-02 15:11 | PCM.DC.SUM ---
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 - Secondary Discharge Diagnosis Chronic Problems: Chronic Problems Opiate abuse, continuous (Chronic) Anxiety and depression (Chronic) Hepatitis C (Chronic) IV drug abuse (Chronic) Tobacco use (Chronic) Bronchial asthma (Chronic) Hospital Course and Treatment Operations: None Summary of Care Provided: The patient is a 30 year old F with history of IVDA, heroin was admitted through ER on March 01 with generalized malaise, shortness of breath, drowsy lethargy for last 4 days after stopping opioid use. She has a history of recurrent ER visit, MRSA infection, anemia and cellulitis. Patient was admitted with fever 101.3 Fahrenheit, tachycardia, tachypnea, shortness of breath, altered mental status confusion disorientation. She also complained of lower back pain with intermittent stool incontinence there was concern for epidural abscess/discitis but ruled out with negative MRI lumbar and thoracic spine. Patient has history of chronic hepatitis C, tobacco dependence, chronic asthma and polysubstance use including opioids. chest CT shows multiple pulmonary nodular opacity consistent with septic emboli. She was admitted in ICU on broad-spectrum antibiotic vancomycin and Zosyn after blood culture and urine culture were done with a diagnosis of Severe sepsis. Patient also has leukocytosis and mild thrombocytopenia. Patient also had 3 units of PRBC for severe anemia for hemoglobin 5.5 and posttransfusion H&H showed 8.1 g%. Blood cultures x2 initial both bottles showing gram-positive cocci in clusters probably MRSA. 2D echo was done and discussed with knit goods washer and human resource intern. 2D echo shows large mobile echodensity in tricuspid valve apparatus prolapsing into the right atrium consistent with restrictive process. Moderate 2+ TR, RVSP 77 reduces to severe pulmonary hypertension. In ICU, patient maintaining her blood pressure but remained tachypneic, RR 27-28/min. Sinus tachycardia, heart rate 125 to 135-minute. Febrile, T-max 101.5 Fahrenheit. Oxygen requirement slightly got better, on 2 L of oxygen Decision made to transfer the patient to tertiary level care for infective tricuspid valve endocarditis. Thereafter I talked to patient's mother who has not met her daughter for more than 6 months. She agreed for transfer to any tertiary care hospital. I talked to the [facility] cardiothoracic surgeon, Dr. Cifuentes and human resource intern Dr. Toledo and discussed patient's admission, hospital/ICU course, labs, imaging, microbiology and echo findings. Dissected the patient in [facility] in ICU unit. Patient is in the process of getting transferred to [facility] Total time spent, exact 35 minutes on discussion with human resource intern, knit goods washer, or [facility] transfer intensive care unit registered nurse, Dr. Cifuentes and human resource intern, Dr. Toledo more than 35 minutes. Clinical Impression(s) from Imaging Studies Chest X-Ray 03/01/21 09:42 IMPRESSION: 1. Interval placement of a right internal jugular deep venous line with tip the catheter overlying the superior vena cava with no pneumothorax. 2. No change in bilateral patchy pneumonia or possibly pulmonary nodules. Correlation with CT the chest with contrast would be useful. Lumbar Spine MRI 03/01/21 09:45 IMPRESSION: Normal enhanced and unenhanced MR examination of the lumbar spine. Thoracic Spine MRI 03/01/21 09:45 IMPRESSION: Normal unenhanced and enhanced MRI examination of the thoracic spine. Chest CT 03/01/21 14:57 IMPRESSION: 1. Multiple pulmonary nodular opacities consistent with history of septic emboli. Pneumonia could be considered in the appropriate clinical setting. Echocardiogram 03/02/21 05:44 Interpretation Summary Left ventricular systolic function is normal. The estimated ejection fraction is 65 %. Aneurysmal atrial septum. Mild diffuse mitral valve thickening. Mild (1+) mitral valve insufficiency. Mild diffuse thickening of the tricuspid valve. 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 Moderate (2+) tricuspid valve insufficiency. Mild diffuse aortic valve thickening. Small pericardial effusion. There are no echocardiographic indications of cardiac tamponade. Right ventricular systolic pressure estimated to be 77 mmHg. Severe pulmonary hypertension. Unable to assess diastolic dysfunction. Comment: The aforementioned findings were discussed and reviewed with Dr. Lou and Dr. Cox. Patient Problems: Active and Suspected Problems Opiate withdrawal (Acute) Severe sepsis (Acute) Bilateral pneumonia (Acute) Lactic acidosis (Acute) Acute respiratory failure with hypoxia (Acute) Objective: Follow-up for severe sepsis from MRSA bacteremia, bilateral pulmonary septic emboli and infective endocarditis, tricuspid valve Physical exam General: Confused, disoriented, drowsy lethargic, somnolent HEENT: Atraumatic, PERRLA, EOMI, Normocephalic Oral: No Gingival or Mucosal Lesions/ Ulcerations Neck: Right IJ CVC catheter. Supple, No JVD, Negative Carotid Bruits Lungs: Air entry diminished in bilateral lung bases. No coarse crepitations tachypneic, hypoxic, bronchial breathing Cardiovascular: Sinus tachycardia. Normal S1, Normal S2, No murmurs Abdomen: Bowel Sounds Present, Soft, Non Tender, Non-Distended : No renal angle tenderness. No suprapubic tenderness. Extremities: There is a scar juan over both arms. No edema, Capillary Refill Less than 3 Seconds Skin: No rashes, No breakdown Musculoskeletal: No Tenderness to Palpation of Joints or Extremities Neurological: Overall, somnolent. Cannot obtain detailed neurological exam Psych/Mental Status: Flat affect. - Physical Exam Vitals/I&O's: Vital Signs Temp Pulse Resp BP Pulse Ox 100.5 F H 126 H 27 H 129/86 H 97 03/02/21 12:00 03/02/21 14:00 03/02/21 14:00 03/02/21 14:00 03/02/21 14:00 Oxygen Flow Rate (L/min) 2 Oxygen Delivery Method Nasal Cannula Weight: 130 lb 11.746 oz Body Mass Index (BMI) 22.1 Finger Stick Blood Glucose 80 Intake and Output for Last 24 Hours 02/28/21 03/01/21 03/02/21 23:59 23:59 23:59 Intake Total 3755 / 4115 2665.83 / 2665.83 Output Total 475 / 555 350 / 350 Balance 3280 / 3560 2315.83 / 2315.83 Microbiology Past 72 Hours 03/01/21 11:00 Blood Culture (Wb) - Anticubital Left Blood Culture - Preliminary Staphylococcus aureus Staphylococcus species 03/01/21 09:38 Blood Culture (Wb) - Anticubital Left Bacteria Detection (PCR) - Final Staphylococcus aureus mecA Resistance Marker 03/01/21 09:38 Blood Culture (Wb) - Anticubital Left Blood Culture - Preliminary Staphylococcus aureus Staphylococcus species 03/01/21 16:00 Urine Catheter - Catheter Urine Culture - Preliminary Culture exhibits no growth. 03/01/21 16:00 Urine Catheter - Catheter Legionella Antigen - Final 03/01/21 16:00 Urine Catheter - Catheter Streptococcus pneumoniae Antigen (M - Final 03/01/21 10:25 Mucosa - Nose SARS-CoV-2 Antigen (Rapid) - Final Laboratory Results 03/01/21 11:25: Crossmatch See Detail 03/01/21 11:25: Crossmatch See Detail 03/01/21 16:00: Urine Color Yellow, Urine Clarity Cloudy, Urine pH 5.0, Ur Specific [place] 1.015, Urine Protein 500 H, Urine Glucose (UA) Normal, Urine Ketones Negative, Urine Occult Blood 250 H, Urine Nitrite Negative, Urine Bilirubin Negative, Urine Urobilinogen Normal, Ur Leukocyte Esterase 100 H, Urine RBC 5-10 SEEN, Urine WBC 50-100 SEEN, Ur Squamous Epith Cells 0 SEEN, Ur Renal Epithelial Cell 0-5 SEEN, Urine Bacteria 3+, Hyaline Casts 0-5 SEEN, Coarse Granular Casts 0-5 SEEN, WBC Casts 5-10 SEEN, Urine Mucus 0 SEEN 03/01/21 16:00: Urine Opiates Screen POSITIVE H, Urine Methadone Screen NEGATIVE, Ur Barbiturates Screen NEGATIVE, Ur Phencyclidine Scrn NEGATIVE, Ur Amphetamines Screen NEGATIVE, U Methamphetamin-MDMA NEGATIVE, U Benzodiazepines Scrn NEGATIVE, Urine Cocaine Screen NEGATIVE, U Cannabinoids Screen NEGATIVE, Ur Drug Screen Comment 03/01/21 16:00: Urine Color Cancelled, Urine Clarity Cancelled, Urine pH Cancelled, Ur Specific [place] Cancelled, U Specif Grav (Refrac) Cancelled, Urine Protein Cancelled, Urine Glucose (UA) Cancelled, Urine Ketones Cancelled, Urine Occult Blood Cancelled, Urine Nitrite Cancelled, Urine Bilirubin Cancelled, Urine Urobilinogen Cancelled, Ur Leukocyte Esterase Cancelled, Urine RBC Cancelled, Urine WBC Cancelled, Ur Squamous Epith Cells Cancelled, Ur Transition Epith Cell Cancelled, Ur Renal Epithelial Cell Cancelled, Calcium Oxalate Crystal Cancelled, Uric Acid Crystals Cancelled, Triple Phos Crystals Cancelled, Other Crystals Cancelled, Amorphous Sediment Cancelled, Urine Bacteria Cancelled, Hyaline Casts Cancelled, Fine Granular Casts Cancelled, Coarse Granular Casts Cancelled, Waxy Casts Cancelled, RBC Casts Cancelled, WBC Casts Cancelled, Urine Mucus Cancelled, Urine Trichomonas Cancelled, Urine Yeast Cancelled 03/01/21 17:15: Phosphorus 7.5 H, Magnesium 1.8, Iron 11 L, TIBC 200 L, Iron Saturation 5.5 L, Ferritin 130, Folate 15.70 03/01/21 17:15: Hepatitis A IgM Ab Pending, Hepatitis A Ab Total Pending, Hep Bs Antigen Pending, Hep B Core Total Ab Pending, Hep B Core IgM Ab Pending 03/01/21 17:15: Vitamin B12 Cancelled, HIV 1&2 Antibody Preliminary Reactive H 03/01/21 17:15: Hgb 5.5 L*, Hct 17.4 L 03/01/21 17:15: MRSA (PCR) POSITIVE H 03/01/21 17:15: Vitamin B12 Pending 03/01/21 17:15: Miscellaneous Test Pending 03/01/21 23:45: Hgb 8.1 L, Hct 24.7 L 03/02/21 03:45: WBC 15.0 H, RBC 3.00 L, Hgb 8.3 L, Hct 25.4 L, MCV 84.7, MCH 27.7, MCHC 32.7, RDW Std Deviation 53.4 H, RDW Coeff of [place]iff[place] 17.3 H, Plt Count 110 L, MPV 11.1 03/02/21 03:45: Sodium 131 L, Potassium 3.6, Chloride 100, Carbon Dioxide 22.0, Anion Gap 9, BUN 76 H, Creatinine 2.53 H, Estim Creat Clear Calc 25.95, Est GFR (MDRD) Af Amer 29 L, Est GFR (MDRD) Non-Af 24 L, BUN/Creatinine Ratio 30.0 H, Glucose 125 H, Calcium 6.8 L Current Medications Acetaminophen (Acetaminophen 650 Mg Suppository) 650 mg RC Q4H PRN PRN PRN Reason: Pain Score 1-10/Temp > 100.7 F Buprenorphine HCl (Buprenorphine Hcl 2 Mg Tab.Subl) 4 mg SL Q8H SCOTT; Taper Stop: 03/05/21 06:14 Last Admin: 03/02/21 14:31 Dose: Not Given Documented by: Clonidine (Clonidine Hcl 0.1 Mg Tablet) 0.1 mg PO Q8H PRN PRN PRN Reason: RESTLESSNESS Last Admin: 03/02/21 01:45 Dose: 0.1 mg Documented by: Dicyclomine HCl (Dicyclomine 10 Mg Capsule) 20 mg PO Q6H PRN PRN PRN Reason: Abdominal Discomfort Gabapentin (Gabapentin 300 Mg Capsule) 300 mg PO Q8H PRN PRN PRN Reason: moderate to severe anxiety Last Admin: 03/02/21 01:45 Dose: 300 mg Documented by: Hydroxyzine Pamoate (Hydroxyzine Mo[place] 25 Mg Capsule) 50 mg PO Q6H PRN PRN PRN Reason: mild anxiety Sodium Chloride () 250 mls @ 15 mls/hr IV .[id number] PRN PRN Reason: Saline Flush Sodium Chloride () 250 mls @ 15 mls/hr IV .[id number] PRN PRN Reason: Additional IVPB Infusion Sodium Chloride () 1,000 mls @ 125 mls/hr IV .Q8H SCOTT Last Admin: 03/02/21 10:15 Dose: 125 mls/hr Documented by: Piperacillin Sod/Tazobactam (Sod 3.375 gm/ Sodium Chloride) 50 mls @ 12.5 mls/hr IV Q8 SCOTT Stop: 03/08/21 22:01 Last Admin: 03/02/21 13:45 Dose: 12.5 mls/hr Documented by: Pantoprazole Sodium 40 mg/ (Sodium Chloride) 110 mls @ 330 mls/hr IV Q12 [facility] Last Infusion: 03/02/21 13:40 Dose: Infused Documented by: Vancomycin IV Pharmacy to Dose (1 each/ Sodium Chloride) 500 mls @ 250 mls/hr IV X1 PRN; Protocol PRN Reason: Rx to Dose Vancomycin HCl () 500 mg in 100 mls @ 100 mls/hr IV Q24H SCOTT Last Infusion: 03/02/21 13:40 Dose: Infused Documented by: Ipratropium [place] (Ipratropium 0.5 Mg/2.5 Ml Solution) 0.5 mg INHALATION Q4H.RT PRN PRN Reason: WHEEZING Loperamide HCl (Loperamide 2 Mg Capsule) 2 mg PO Q4H PRN PRN PRN Reason: LOOSE STOOLS Methocarbamol (Methocarbamol 750 Mg Tablet) 1,500 mg PO Q6H PRN PRN PRN Reason: MUSCLE SPASM Last Admin: 03/02/21 01:45 Dose: 1,500 mg Documented by: Ondansetron HCl (Ondansetron 4 Mg/2 Ml Vial) 4 mg IV Q8H PRN PRN PRN Reason: NAUSEA/VOMITING Ondansetron HCl (Ondansetron 8 Mg Tablet) 8 mg PO Q8H PRN PRN PRN Reason: NAUSEA Sodium Chloride (0.9% Saline Lock 10 Ml Syringe) 10 - 40 ml IV UD PRN PRN Reason: SALINE FLUSH Last Admin: 03/02/21 05:20 Dose: 30 ml Documented by: Trazodone HCl (Trazodone 100 Mg Tablet) 100 mg PO QHS PRN PRN PRN Reason: INSOMNIA Last Admin: 03/02/21 01:45 Dose: 100 mg Documented by: Home Medications: Medications to take at Discharge Albuterol Sulfate [Albuterol Sulfate HFA] 2 puff PO BID PRN PRN 08/06/20 Budesonide/Formoterol 160/4.5 [Symbicort 160/4.5 Mcg Inhaler (SP)] 2 puff PO DAILY 08/06/20 busPIRone [Buspar] 10 mg PO TID 08/06/20 Ferrous Sulfate [Iron] 325 mg PO DAILY 03/01/21 Sertraline HCl 100 mg PO DAILY 03/01/21 Primary Care Physician: Rose Stevens MD [Primary Care Provider] - Medical Necessity - Tobacco Use Smoking Status: Current every day smoker Tobacco Use: Cigarettes Meaningful Use Info Meaningful Use Diagnoses (Choose all that apply): None applicable Inpatient E&M: 09927 [facility]
[2021-03-04 08:07] LABS: HEPATITIS B SURFACE AG Negative (Negative); Hepatitis A AB, Total Positive (Negative); Hepatitis A IgM Antibody Negative (Negative); Hepatitis B Core AB IgM Negative (Negative); Hepatitis B Core Ab Total Negative (Negative); Hepatitis C Ab >11.0 s/co ratio (0.0-0.9)
[2021-03-04 10:56] LABS: Vitamin B12 704 pg/mL (211-911)
[2021-03-04 16:25] LABS: Hep B Surface Antibodies Non Reactive (.)
== END 2021-03-02 17:00 | disposition short-term general hospital (02) | DRG 720 ==
LOC: ED 09:54 → ICU 15:57
PROVIDERS: Family Medicine; Nurse Practitioner Family; Admitting Provider Family Medicine; Emergency Provider Emergency Medicine; PCP Internal Medicine; Visit Provider Internal Medicine
DX: A41.02 Sepsis due to Methicillin resistant Staphylococcus aureus (principal); I33.0 Acute and subacute infective endocarditis; I26.90 Septic pulmonary embolism without acute cor pulmonale; I08.1 Rheumatic disorders of both mitral and tricuspid valves; J18.9 Pneumonia, unspecified organism; B95.62 Methicillin resistant Staphylococcus aureus infection as the cause of diseases classified elsewhere; R65.20 Severe sepsis without septic shock; J96.01 Acute respiratory failure with hypoxia; E87.2 Acidosis; F11.23 Opioid dependence with withdrawal; F32.9 Major depressive disorder, single episode, unspecified; F41.9 Anxiety disorder, unspecified; B18.2 Chronic viral hepatitis C; J45.909 Unspecified asthma, uncomplicated; D64.9 Anemia, unspecified; L03.119 Cellulitis of unspecified part of limb; I27.20 Pulmonary hypertension, unspecified; K21.9 Gastro-esophageal reflux disease without esophagitis; N17.9 Acute kidney failure, unspecified; D69.6 Thrombocytopenia, unspecified; M62.81 Muscle weakness (generalized); E87.6 Hypokalemia; E87.1 Hypo-osmolality and hyponatremia; E86.1 Hypovolemia; R15.9 Full incontinence of feces; F17.210 Nicotine dependence, cigarettes, uncomplicated; F15.10 Other stimulant abuse, uncomplicated; Z79.51 Long term (current) use of inhaled steroids; Z79.899 Other long term (current) drug therapy
CPT/HCPCS: 71045; 71250; 72157; 72158; 80048; 80053; 80307; 81001; 82550; 82607; 82728; 82746; 82803; 83540; 83550; 83605; 83735; 84100; 85014; 85018; 85025; 85027; 85610; 85730; 86703; 86704; 86705; 86706; 86708; 86709; 86803; 86850; 86900; 86901; 86920; 86922; 87040; 87077; 87086; 87088; 87149; 87186; 87340; 87426; 87449; 87641; 93005; 93306; 94640; 99284; 99285; 99406; A9575; J7030; J7040; J7050; P9016; A4216; C1751

== ENCOUNTER 2021-06-13 13:59 | Emergency (ER) | payer MEDICAID, SELFPAY ==
[2021-03-01 16:21] VITALS: BMI 22.1
[2021-06-13 14:00] VITALS: BP 122/84; PULSE 109; RESP 12; TEMP 36.1; O2SAT 93; BMI 25.9
--- NOTE | 2021-06-13 14:09 | EDS_ITS ---
HPI History of Present Illness Chief Complaint: Overdose Detail of Chief Complaint: Patient per to the emergency department via EMS for a heroin drug overdose Informant: patient Narrative Narrative: Patient states that she relapsed using heroin today. The overdose was accidental. Patient denies feeling suicidal and denies desire to harm self. Patient states that she last had used heroin in February. Patient also tells me she had heart valve replacement March 06 at [facility]. Patient not anticoagulated currently. EMS apparently gave 2 mg of Narcan and patient became responsive. Patient has history of seizure disorder and is on Keppra which she has been taking regularly. She denies any other complaints. Prior similar symptoms: [facility] Medical History (Updated 06/13/21 @ 16:[address] Carmine Soliz, DO) Opiate addiction Seizures Home Medications albuterol sulfate 2 puff PO BID PRN PRN 08/06/20 [History Last Taken 08/05/20] budesonide-formoterol 2 puff PO DAILY 08/06/20 [History Last Taken 08/05/20] buspirone 10 mg PO TID 08/06/20 [History Last Taken 08/05/20] sertraline 100 mg PO DAILY 03/01/21 [History Last Taken Unknown] levetiracetam 750 mg PO BID 06/13/21 [History Last Taken Unknown] minocycline 100 mg PO BID 06/13/21 [History Last Taken Unknown] montelukast 10 mg PO DAILY 06/13/21 [History Last Taken Unknown] Allergy/AdvReac Type Severity Reaction Status Date / Time No Known Allergies Allergy Verified 06/13/21 14:03 Surgical History (Updated 06/13/21 @ 14:06 by John Hernández) Heart valve replaced Social History Smoking Status: Current every day smoker tobacco type: cigarettes ROS ROS ED ROS Narrative Heroin overdose Constitutional Constitutional ED: Reports systems reviewed and no addt'l complaints, except as documented; Denies body ache(s), change in weight or chills Eyes Eyes: Denies acute decrease in peripheral vision, change in vision, double vision or loss of vision ENT ENT ED: Reports none; Denies ear pain, lip swelling, loss taste/smell, neck pain, otalgia or sore throat Cardiovascular Cardiovascular: Reports none; Denies abdominal pain, chest pain with activity, leg edema, lightheadedness, palpitations, rapid heart rate or syncope Respiratory/Chest Respiratory/Chest: Reports none; Denies change in mental status, dry cough, dyspnea, hemoptysis, shortness of breath at rest or shortness of breath with exertion Gastrointestinal Gastrointestinal: Reports none; Denies abdominal pain, change in stool character, diarrhea, hematemesis, hematochezia, melena, rectal bleeding or vomiting Genitourinary Genitourinary ED: Reports none; Denies abdominal discomfort, anuria, dysuria, genital pain or polyuria Musculoskeletal Musculoskeletal: Reports none; Denies arthralgias, back pain, difficulty walking, extremity pain, muscle weakness or myalgias Integumentary Reports none; Denies abscess or rash Neurologic Neurologic: Reports none; Denies abnormal gait, confusion, focal weakness, frequent falls, headache(s), loss of vision, numbness, paresthesias, radicular pain, vertigo or weakness Psychiatric Psychiatric: Reports systems reviewed and no addt'l complaints, except as documented and none; Denies behavioral changes, confusion, difficulty concentrating, hallucinations, suicidal ideation, tactile hallucinations or visual hallucinations Endocrine Endocrinology: Denies none, cold intolerance, excessive sweating, fatigue or heat intolerance Hematologic/Lymphatic Hematologic/Lymphatic: Reports none; Denies anemia, easy bleeding or easy bruising Allergic/Immunologic Allergic/Immunologic ED: Denies as per HPI, none, lip swelling, mouth swelling, throat swelling, tongue swelling or hives EXAM Physical Exam Const Vital Signs: 06/13/21 14:00 Temperature 96.9 F L Temperature Source Temporal Pulse Rate 109 H Respiratory Rate 12 Blood Pressure 122/84 H Blood Pressure Mean 96 Pulse Ox 93 Oxygen Delivery Method Room Air Positive well nourished and well developed General Appearance ED: well developed and NAD HEENT Reports TM's clear and moist mucous membranes normocephalic and atraumatic; Negative for trauma or tenderness Tympanic Membrane ED: Yes TM's clear Eyes PERRL and EOMs intact bilaterally General Eye ED: Negative for pale conjunctiva or scleral icterus Neck no lymphadenopathy, supple and no JVD General: Negative for tenderness Chest Wall inspection of chest normal and palpation of chest normal Chest: Negative for tenderness Resp normal respiratory effort and clear to auscultation bilaterally Effort and Inspection: Negative for respiratory distress or pain with movement Auscultation: Negative for rhonchi, wheezes or diminished lung sounds Cardio regular rate, regular rhythm, S1 normal heart sound, S2 normal heart sound and no murmurs Peripheral Pulses: pulses 2+ throughout GI normal to inspection, nondistended, normoactive bowel sounds, soft to palpation, non-tender, non-distended and no masses Back/Spine no CVA tenderness and no thoracic nor lumbar tenderness Extremity normal to inspection Extremity Narrative: Patient with track miller noted on upper extremities. General Extremety ED: Negative for edema General Extremity: Negative for edema Neuro oriented x3, CN's II-XII intact bilaterally, no sensory deficits noted and gait normal Sensorium / Orientation: awake, alert, oriented to person, oriented to place and oriented to time Motor Exam: strength 5/5 throughout and strength abnormal Psych mental status grossly normal Skin no rashes or lesions noted and no wounds MDM MDM MDM Narrative Medical decision making narrative: Patient was observed in the department for 2 hours and had no further issues. Police will take patient to [facility] as she has a warrant for her arrest. On repeat examination at 16;03 patient without complaints. Discharge Plan Triage Chief Complaint: Overdose ED Provider: Carmine Soliz Dx/Rx/DC Orders Clinical Impression: Opiate overdose Instructions: ED Opiate Abuse Prescriptions: No Action buspirone 5 MG tablet 10 mg PO TID RF: 0 albuterol sulfate 90 mcg/actuation HFA aerosol inhaler 2 puff PO BID PRN PRN (Reason: Asthma) RF: 0 budesonide-formoterol 160-4.5 mcg/actuation HFA aerosol inhaler 2 puff PO DAILY RF: 0 sertraline 100 MG tablet 100 mg PO DAILY RF: 0 levetiracetam 750 mg tablet 750 mg PO BID RF: 0 minocycline 100 mg capsule 100 mg PO BID RF: 0 montelukast 10 mg tablet 10 mg PO DAILY RF: 0 Primary Care Provider: Rose Stevens Referrals: Rose Stevens MD [Primary Care Provider] - 3-5 Days Disposition Disposition: Home, Self Care
[2021-06-13 16:24] VITALS: BP 104/66; PULSE 112; RESP 14; O2SAT 93
== END 2021-06-13 16:24 ==
PROVIDERS: Emergency Provider Emergency Medicine; PCP Internal Medicine
DX: T40.1X1A Poisoning by heroin, accidental (unintentional), initial encounter (principal); R40.4 Transient alteration of awareness; Y92.9 Unspecified place or not applicable; G40.909 Epilepsy, unspecified, not intractable, without status epilepticus; F11.20 Opioid dependence, uncomplicated; F17.210 Nicotine dependence, cigarettes, uncomplicated; Z95.2 Presence of prosthetic heart valve; Z79.899 Other long term (current) drug therapy
CPT/HCPCS: 99284

== ENCOUNTER 2021-09-26 22:20 | Emergency (ER) | payer MEDICAID, SELFPAY ==
[2021-09-26 22:21] VITALS: BP 120/84; PULSE 113; RESP 18; TEMP 36.6; O2SAT 94; BMI 26.4
--- NOTE | 2021-09-26 22:38 | EX.ED.SAOD ---
HPI History of Present Illness Chief Complaint: Overdose Onset/Context/Timing Onset: Today Timing: Continuous Quality: Unresponsive Location: Generalized Worsened by: Nothing Relieved by: Narcan Associated Symptoms Associated Symptoms: Negative for vomiting*, diarrhea*, fever*, rash*, seizure, tremor, palpatations, suicidal ideation and homicidal ideation Prehospital Treatment: Naloxone Narrative Narrative: Patient presents with heroin overdose that occurred today. Patient was found unresponsive at a stoplight. Police administered Narcan. Patient became more awake and alert. Currently, the patient is awake and alert. Patient states she has a history of heroin abuse and relapsed recently. Patient is not sure exactly how much heroin she used tonight. Patient admits to nausea but denies any vomiting. Patient denies any fevers or chills. [facility] Medical History Anxiety Depression Opiate addiction Seizures Home Medications albuterol sulfate 2 puff PO BID PRN PRN 08/06/20 [History Last Taken 08/05/20] budesonide-formoterol 2 puff PO DAILY 08/06/20 [History Last Taken 08/05/20] buspirone 10 mg PO TID 08/06/20 [History Last Taken 08/05/20] sertraline 100 mg PO DAILY 03/01/21 [History Last Taken Unknown] levetiracetam 750 mg PO BID 06/13/21 [History Last Taken Unknown] minocycline 100 mg PO BID 06/13/21 [History Last Taken Unknown] montelukast 10 mg PO DAILY 06/13/21 [History Last Taken Unknown] Allergy/AdvReac Type Severity Reaction Status Date / Time No Known Allergies Allergy Verified 06/13/21 14:03 Surgical History Heart valve replaced Social History Smoking Status: Current every day smoker tobacco type: cigarettes ROS ROS ED Constitutional Constitutional ED: Denies chills or fever(s) Eyes Eyes: Denies blurry vision or change in vision ENT ENT ED: Reports rhinorrhea; Denies sore throat Cardiovascular Cardiovascular: Denies chest pain or palpitations Respiratory/Chest Respiratory/Chest: Denies cough or dyspnea Gastrointestinal Gastrointestinal: Reports nausea; Denies vomiting Genitourinary Genitourinary ED: Denies dysuria or hematuria Musculoskeletal Musculoskeletal: Reports neck pain; Denies back pain Integumentary Denies abscess or rash Neurologic Neurologic: Denies headache(s) or weakness Allergic/Immunologic Allergic/Immunologic ED: Denies mouth swelling or urticaria EXAM Physical Exam Const Vital Signs: 09/26/21 22:21 09/27/21 00:23 Temperature 98 F Temperature Source Temporal Pulse Rate 113 H 112 H Respiratory Rate 18 13 Blood Pressure 120/84 H 115/82 H Blood Pressure Mean 96 93 Pulse Ox 94 94 Oxygen Delivery Method Room Air Room Air Positive well nourished and well developed General Appearance ED: well developed HEENT Reports moist mucous membranes Neck supple and no JVD Resp normal respiratory effort and clear to auscultation bilaterally Cardio regular rate, regular rhythm and no murmurs GI normal to inspection, nondistended, normoactive bowel sounds and non-tender Palpation: soft Extremity normal to inspection General Extremety ED: Negative for edema or tenderness General Extremity: Negative for edema Neuro oriented x3, CN's II-XII intact bilaterally and no sensory deficits noted Sensorium / Orientation: alert Motor Exam: strength 5/5 throughout Psych mental status grossly normal Skin no rashes or lesions noted MDM MDM MDM Narrative Medical decision making narrative: Portable 1 view chest x-ray was obtained. On my interpretation, lung ann are clear. There is normal cardiac silhouette. Bony thorax is normal. There is no acute process noted. Radiologist also interpreted the x-ray and agrees. Patient was observed here in the emergency department for several hours. She had no further relapses of her mental status. She maintained normal oxygen saturations during her emergency department course. She was given a referral for 180. Patient was instructed to follow-up in 3-5 days. Patient understood and was agreeable with the plan. All questions were answered. Radiography Diagnostic Testing: Clinical Impression(s) from Imaging Studies Chest X-Ray 09/26/21 22:50 IMPRESSION: No acute radiographic abnormalities. Electronically Signed: Raf Uriarte MD at 23:12 EDT Tel , Service support , Discharge Plan Triage Chief Complaint: Overdose ED Provider: Schwiger,Zana Dx/Rx/DC Orders Clinical Impression: Opiate overdose Instructions: ED Opiate Abuse, ED Overdose, Opiate Prescriptions: No Action buspirone 5 MG tablet 10 mg PO TID RF: 0 albuterol sulfate 90 mcg/actuation HFA aerosol inhaler 2 puff PO BID PRN PRN (Reason: Asthma) RF: 0 budesonide-formoterol 160-4.5 mcg/actuation HFA aerosol inhaler 2 puff PO DAILY RF: 0 sertraline 100 MG tablet 100 mg PO DAILY RF: 0 levetiracetam 750 mg tablet 750 mg PO BID RF: 0 minocycline 100 mg capsule 100 mg PO BID RF: 0 montelukast 10 mg tablet 10 mg PO DAILY RF: 0 Primary Care Provider: Rose Stevens Referrals: Rose Stevens MD [Primary Care Provider] - 3-5 Days [facility] [STAFF PHYSICIAN] - As soon as possible Disposition Disposition: Home, Self Care
--- NOTE | 2021-09-26 22:50 | RAD_ITS ---
INDICATION: Cough EXAMINATION/TECHNIQUE: X-RAY - XR Chest 1 View COMPARISON: 03/01/2021. FINDINGS: The lungs are clear. The cardiomediastinal silhouette is unremarkable. Median sternotomy wires present. No pleural effusion or pneumothorax. No acute osseous abnormalities. RAD/Chest 1 View (Portable) IMPRESSION: No acute radiographic abnormalities. Electronically Signed: Raf Uriarte MD at 23:12 EDT Tel , Service support ,
[2021-09-27 00:23] VITALS: BP 115/82; PULSE 112; RESP 13; O2SAT 94
[2021-09-27 01:56] VITALS: BP 107/68; PULSE 121; RESP 20; O2SAT 96
--- NOTE | 2021-09-27 01:56 | ED.RN ---
PT CALLING FRIENDS FOR A RIDE HOME.
== END 2021-09-27 01:57 | disposition home or self-care (01) ==
PROVIDERS: Emergency Provider Emergency Medicine; PCP Internal Medicine
DX: T40.1X1A Poisoning by heroin, accidental (unintentional), initial encounter (principal); R11.0 Nausea; Y92.410 Unspecified street and highway as the place of occurrence of the external cause; F32.A Depression, unspecified; F41.9 Anxiety disorder, unspecified; F11.20 Opioid dependence, uncomplicated; F17.210 Nicotine dependence, cigarettes, uncomplicated; Z79.899 Other long term (current) drug therapy
CPT/HCPCS: 71045; 99285

== ENCOUNTER → 2023-12-11 | Outpatient (CLI) | payer MEDICAID, SELFPAY ==
[2023-12-12 16:09] LABS: HCV Quant. RNA PCR HCV Not Detected IU/mL (.)
== END | disposition home or self-care (01) ==
LOC: LAB 10:51
PROVIDERS: PCP Internal Medicine; Referring Provider Family Medicine; Visit Provider Family Medicine
DX: B18.2 Chronic viral hepatitis C (principal)
CPT/HCPCS: 36415; 87522

== ENCOUNTER 2024-02-10 13:22 | Emergency (ER) | payer MEDICAID, SELFPAY ==
[2024-02-10 13:24] VITALS: BP 148/98; PULSE 100; RESP 18; TEMP 35.1; O2SAT 93; BMI 30.4
--- NOTE | 2024-02-10 14:33 | EDS_ITS ---
HPI History of Present Illness Chief Complaint: Vision Prob Informant: patient Narrative Narrative: Patient reports blurry vision and crusting to the bilateral eyes for the last 2 to 3 weeks. Has been using antihistamine with no relief. History of seizure disorder on Keppra. She saw her neurology team today was cleared from neurology standpoint however still to get her eyes checked. She was referred to urgent care. She went to urgent care who evaluated her, reports they are trying to get her to an eye doctor, however they are unable to get her appointment therefore she was referred to the ED. She states from her seizure disorder she has vision loss to her left lower quadrant on the left side and is chronic. She reports intermittent cloudy vision. She does wear glasses for distance last eye exam with a year ago with no prescription changes. [facility] Medical History Anxiety Depression Opiate addiction Seizures Home Medications albuterol sulfate 90 mcg/actuation aerosol inhaler 2 puff PO BID PRN PRN Asthma 08/06/20 [History Last Taken 08/05/20] budesonide-formoterol HFA 160 mcg-4.5 mcg/actuation aerosol inhaler 2 puff PO DAILY asthma 08/06/20 [History Last Taken 08/05/20] buspirone 5 mg tablet 10 mg PO TID depression 08/06/20 [History Last Taken 02/10/24] sertraline 100 mg tablet 100 mg PO DAILY DEPRESSION 03/01/21 [History Last Taken 02/09/24] levetiracetam 750 mg tablet 1,000 mg PO BID 06/13/21 [History Last Taken 02/10/24] minocycline 100 mg capsule 100 mg PO BID 06/13/21 [History Last Taken 02/10/24] atomoxetine 25 mg capsule 25 mg PO DAILY 02/10/24 [History Last Taken 02/10/24] calcium phosphate,dibasic 77 mg-vitamin D3 400 unit tablet 1 tab PO DAILY suppliment 02/10/24 [History Last Taken 02/09/24] ciprofloxacin HCl 0.3 % eye drops 1 drp EACH EYE BID #5 mL 02/10/24 [Rx Last Taken Unknown] folic acid 1 mg tablet 1 mg PO DAILY 02/10/24 [History Last Taken 02/10/24] trazodone 100 mg tablet 50 mg PO QHS 02/10/24 [History Last Taken 02/09/24] Allergy/AdvReac Type Severity Reaction Status Date / Time No Known Allergies Allergy Verified 02/10/24 13:26 Surgical History Heart valve replaced Social History Smoking Status: Current every day smoker tobacco type: cigarettes ROS ROS ED Constitutional Constitutional ED: Denies chills, fever(s) or sweats Eyes Eyes: Reports blurry vision and other Details: Crusting bilateral eyes ; Denies change in vision ENT ENT ED: Denies dysphagia or sore throat Cardiovascular Cardiovascular: Denies chest pain, leg edema, palpitations or racing heartbeat Respiratory/Chest Respiratory/Chest: Denies cough, dyspnea or dyspnea on exertion Gastrointestinal Gastrointestinal: Denies abdominal pain, diarrhea, nausea or vomiting Genitourinary Genitourinary ED: Denies dysuria, hematuria or urinary frequency Musculoskeletal Musculoskeletal: Denies back pain, extremity pain or neck pain Integumentary Denies rash or wounds Neurologic Neurologic: Denies headache(s), paresthesias or weakness EXAM Physical Exam Const Vital Signs: 02/10/24 13:24 Temperature 95.1 F L Temperature Source Temporal Pulse Rate 100 Respiratory Rate 18 Blood Pressure 148/98 H Blood Pressure Mean 114 Pulse Ox 93 Oxygen Delivery Method Room Air Positive well nourished and well developed General Appearance ED: well developed and NAD HEENT Reports moist mucous membranes normocephalic and atraumatic Eyes PERRL and EOMs intact bilaterally Eyes Narrative: Dry crusting upper lids bilaterally slight swelling the lower lids bilaterally. There is slight erythema conjunctiva bilaterally. Patient did have vision loss chronically very outer aspect left lower quadrant with the left eye. All other quadrants intact for both eyes tested individually. Visual acuity 20/70 OD, 20/25 OS, 20/25 OU Slit-lamp examination with fluorescein, there was no abrasions or ulcerations. Pupils contract bilaterally. Slight dryness uptake noted in the right eye 4 o'clock position. Neck no lymphadenopathy and supple General: Negative for tenderness Chest Wall Chest: Negative for tenderness Resp normal respiratory effort and normal air movement Effort and Inspection: symmetric chest movement; Negative for respiratory distress Cardio regular rate, regular rhythm and no murmurs Peripheral Pulses: pulses 2+ throughout GI normal to inspection, nondistended, normoactive bowel sounds and non-tender Palpation: Negative for guarding or rebound tenderness present Back/Spine no CVA tenderness and no thoracic nor lumbar tenderness Extremity normal to inspection General Extremety ED: Negative for edema or tenderness General Extremity: Negative for edema Neuro oriented x3 and no sensory deficits noted Sensorium / Orientation: awake and alert Skin no rashes or lesions noted and no wounds MDM MDM MDM Narrative Medical decision making narrative: Interventions / MDM: Differential diagnosis: Bilateral conjunctivitis with blurry vision Diagnosis considered but do not suspect: No clinical glaucoma or retinal detachment, no corneal ulcers or abrasions. My EKG interpretation: N/A Imaging independently reviewed and interpreted by myself: N/A External documents reviewed: N/A Test considered but not ordered:N/A ED course: Patient blurry vision right eye compared to the left. There is no abrasions or ulcers. Slight conjunctivitis with crusting. Chronic left lower quadrant outer vision loss of left eye. She will be placed on antibiotic drops for the conjunctivitis. She was referred to ophthalmology for outpatient evaluation. All questions were answered. Re-evaluation: stable Disposition discussed with patient/family/significant other: Patient Case discussed with consulting clinician: N/A This note was generated with [employer] dictation software. It may contain incorrect words, spelling, and punctuation that were not noted in checking the note before signing. Discharge Plan Triage Chief Complaint: Vision Prob ED Provider: Nolan Kirby Dx/Rx/DC Orders Clinical Impression: Blurred vision, Bilateral conjunctivitis Instructions: ED Blurred Vision, ED Conjunctivitis, Nonspecific Prescriptions: New ciprofloxacin HCl 0.3 % drops 1 drp EACH EYE BID Qty: 5 0RF Rx Instructions: 1 drp into Each EYE; x 7 days No Action buspirone 5 MG tablet 10 mg PO TID albuterol sulfate 90 mcg/actuation HFA aerosol inhaler 2 puff PO BID PRN PRN (Reason: Asthma) Patient Comments: inhale 2 puffs by mouth every 4 hours if needed for cough or wheezing or shortness of breath budesonide-formoterol 160-4.5 mcg/actuation HFA aerosol inhaler 2 puff PO DAILY Patient Comments: inhale 2 puffs by mouth twice a day sertraline 100 MG tablet 100 mg PO DAILY levetiracetam 750 mg tablet 1,000 mg PO BID Patient Comments: take 1 tablet by mouth twice a day minocycline 100 mg capsule 100 mg PO BID Patient Comments: take 1 capsule by mouth twice a day folic acid 1 mg tablet 1 mg PO DAILY calcium phos,dibas-vitamin D3 77-400 mg-unit tablet 1 tab PO DAILY atomoxetine 25 mg capsule 25 mg PO DAILY trazodone 100 mg tablet 50 mg PO QHS Primary Care Provider: Rose Stevens Referrals: Rose Stevens MD [Primary Care Provider] - Laron Simpson MD [Med Staff - Active Staff] - 1-2 Days if not improving Disposition Disposition: Home, Self Care Discharge Date/Time: 02/10/24 15:34
[2024-02-10] MEDS: Fluorescein 1 MG STRIP 1 STRIP OPHTHALMIC (15:07)
[2024-02-10 15:32] VITALS: BP 124/62; PULSE 71; RESP 16; TEMP 36.4; O2SAT 99
== END 2024-02-10 15:34 | disposition home or self-care (01) ==
PROVIDERS: Emergency Provider Emergency Medicine; PCP Internal Medicine; Visit Provider Emergency Medicine
DX: H10.9 Unspecified conjunctivitis (principal); G40.909 Epilepsy, unspecified, not intractable, without status epilepticus; H53.8 Other visual disturbances; F17.210 Nicotine dependence, cigarettes, uncomplicated; Z79.899 Other long term (current) drug therapy
CPT/HCPCS: 99283

== ENCOUNTER 2024-07-27 10:06 | Emergency (ER) | payer MEDICAID, SELFPAY ==
[2024-07-27 10:06] VITALS: BP 109/70; PULSE 88; RESP 16; TEMP 36.4; O2SAT 98; BMI 35.7
--- NOTE | 2024-07-27 10:28 | ED.VIS.FEGU ---
HPI HPI - Female History of Present Illness Chief Complaint: Informant: patient Associated Symptoms Associated Symptoms: Negative for Dysuria, Frequency or Hematuria Test: Positive P: 1 Ab: 1 Narrative Narrative: Patient presents with dizziness, lightheadedness, and seeing spots. Patient states this began approximately 1 hour prior to arrival. Patient states these are the symptoms she has prior to having a seizure. Patient states her symptoms began rather suddenly. Patient states it Better with the air conditioning on in the car. Patient states nothing makes her symptoms worse. Patient states she takes Keppra 1000 mg twice daily for her seizures. Patient also states she is 19 weeks . Patient states this is her third and she has 1 child at home and has had 1 prior miscarriage. Patient denies any vaginal bleeding, discharge, or abdominal cramping. [facility] Medical History Anxiety Depression Opiate addiction Seizures Home Medications ?Medication ?Instructions ?Recorded ?Last Taken ?Type albuterol sulfate 90 mcg/actuation 2 puff PO BID PRN PRN Asthma 08/06/20 08/05/20 History aerosol inhaler budesonide-formoterol HFA 160 2 puff PO DAILY asthma 08/06/20 08/05/20 History mcg-4.5 mcg/actuation aerosol inhaler sertraline 100 mg tablet 100 mg PO DAILY DEPRESSION 03/01/21 02/09/24 History levetiracetam 750 mg tablet 1,000 mg PO BID 06/13/21 02/10/24 History folic acid 1 mg tablet 1 mg PO DAILY 02/10/24 02/10/24 History trazodone 100 mg tablet 50 mg PO QHS 02/10/24 02/09/24 History aspirin 81 mg tablet,delayed 81 mg PO DAILY 07/27/24 Unknown History release (Adult Low Dose Aspirin) melatonin 5 mg tablet 2 PO .night 07/27/24 Unknown History vitamin with calcium 1 tab PO DAILY 07/27/24 Unknown History no.72-iron 27 mg-folic acid 1 mg tablet (WesTab Plus) Allergy/AdvReac Type Severity Reaction Status Date / Time No Known Allergies Allergy Verified 07/27/24 10:06 Surgical History Heart valve replaced Social History (Updated 07/27/24 @ 10:[address] Zana Root, DO) Smoking Status: Former smoker substance use type: former substance user Date of last use: 10 months ago ROS ROS ED Constitutional Constitutional ED: Denies chills or fever(s) Eyes Eyes: Reports change in vision; Denies blurry vision ENT ENT ED: Denies rhinorrhea or sore throat Cardiovascular Cardiovascular: Denies chest pain or palpitations Respiratory/Chest Respiratory/Chest: Reports dyspnea; Denies cough Gastrointestinal Gastrointestinal: Denies nausea or vomiting Genitourinary Genitourinary ED: Denies dysuria or hematuria Musculoskeletal Musculoskeletal: Denies back pain or neck pain Integumentary Denies abscess or rash Neurologic Neurologic: Denies headache(s) or weakness Allergic/Immunologic Allergic/Immunologic ED: Denies mouth swelling or urticaria EXAM Physical Exam Const Vital Signs: 07/27/24 10:06 07/27/24 10:35 07/27/24 11:06 Temperature 97.6 F L Temperature Source Temporal Pulse Rate 88 81 Pulse Rate [Lying] 90 Pulse Rate [Sitting (for 1 minute prior to obtaining)] 91 Pulse Rate [Standing (for 1 minute prior to obtaining)] 94 Respiratory Rate 16 19 H Blood Pressure 109/70 117/85 H Blood Pressure [Lying] 100/62 Blood Pressure [Sitting (for 1 minute prior to obtaining)] 115/80 Blood Pressure [Standing (for 1 minute prior to obtaining)] 129/72 H Blood Pressure Mean 83 95 Blood Pressure Mean [Lying] 74 Blood Pressure Mean [Sitting (for 1 minute prior to obtaining)] 91 Blood Pressure Mean [Standing (for 1 minute prior to obtaining)] 91 Pulse Ox 98 98 Oxygen Delivery Method Room Air Room Air 07/27/24 11:59 Temperature Temperature Source Pulse Rate 81 Pulse Rate [Lying] Pulse Rate [Sitting (for 1 minute prior to obtaining)] Pulse Rate [Standing (for 1 minute prior to obtaining)] Respiratory Rate 18 Blood Pressure 112/89 H Blood Pressure [Lying] Blood Pressure [Sitting (for 1 minute prior to obtaining)] Blood Pressure [Standing (for 1 minute prior to obtaining)] Blood Pressure Mean 96 Blood Pressure Mean [Lying] Blood Pressure Mean [Sitting (for 1 minute prior to obtaining)] Blood Pressure Mean [Standing (for 1 minute prior to obtaining)] Pulse Ox 98 Oxygen Delivery Method Room Air Positive well nourished and well developed General Appearance ED: well developed and NAD HEENT Reports moist mucous membranes Neck supple and no JVD Resp normal respiratory effort and clear to auscultation bilaterally Cardio regular rate and regular rhythm GI soft to palpation, non-tender and non-distended Neuro oriented x3, CN's II-XII intact bilaterally and no sensory deficits noted Sensorium / Orientation: alert Motor Exam: strength 5/5 throughout Psych mental status grossly normal MDM MDM MDM Narrative Medical decision making narrative: Differential diagnosis includes dehydration, electrolyte abnormality, urinary tract infection, and medication noncompliance. CBC will be obtained to assess for leukocytosis and anemia. Comprehensive metabolic profile will be obtained to assess for hepatic function, renal function, and electrolyte abnormality. Urinalysis will be obtained to assess for urinary tract infection and hematuria. Keppra level will be obtained to assess for medication compliance. Lab Data Attestation: I reviewed the patient's lab results. Lab results narrative: CBC was reviewed and was within normal limits. Comprehensive metabolic profile was reviewed and was within normal limits. Urinalysis was reviewed. There is no evidence of urinary tract infection or hematuria. Labs: Laboratory Results - last 24 hr 07/27/24 07/27/24 10:45 10:55 WBC 9.0 RBC 3.87 L Hgb 12.4 Hct 36.8 L MCV 95.1 MCH 32.0 MCHC 33.7 RDW Std Deviation 45.0 H RDW Coeff of [place]iff[place] 12.9 Plt Count 275 MPV 9.5 Immature Gran % (Auto) 0.600 Neut % (Auto) 72.6 H Lymph % (Auto) 19.8 [place] % (Auto) 5.5 Eos % (Auto) 1.1 Baso % (Auto) 0.4 Absolute Neuts (auto) 6.6 Absolute Lymphs (auto) 1.79 Nucleated RBC % 0 Sodium 137 Potassium 3.8 Chloride 109 H Carbon Dioxide 21.0 Anion Gap 7 BUN 7 Creatinine 0.64 Estim Creat Clear Calc 130.51 Est GFR (MDRD) Af Amer 138 Est GFR (MDRD) Non-Af 114 BUN/Creatinine Ratio 10.9 Glucose 90 Calcium 9.0 Total Bilirubin 0.20 AST 15 ALT 20 Alkaline Phosphatase 54 Total Protein 7.2 Albumin 3.0 L Globulin 4.2 Albumin/Globulin Ratio 0.7 L Urine Color Yellow Urine Clarity Sl. Cloudy Urine pH 7.0 Ur Specific [place] 1.015 Urine Protein 30 H Urine Glucose (UA) Normal Urine Ketones Negative Urine Occult Blood Negative Urine Nitrite Negative Urine Bilirubin Negative Urine Urobilinogen 1 H Ur Leukocyte Esterase 25 H Urine RBC 0 SEEN Urine WBC 0-5 SEEN Ur Squamous Epith Cells 5-10 SEEN Amorphous Sediment 1+ Urine Bacteria 1+ Urine Mucus 0 SEEN Treatment and Re-Evaluation Narrative: Patient was given IV fluids. Seizure precautions were maintained. Patient is feeling better on reevaluation. Patient was advised of her findings. Patient was advised that her Keppra level may not come back today. Patient was instructed to follow-up with her primary care physician for that. Patient was instructed to follow-up with her [employer]ATTEND[employer]IST physician as well. Patient was instructed to drink plenty of fluids. Patient was instructed to return if worse in any way. Patient understood and was agreeable with the plan. All questions were answered. Discharge Plan Triage Chief Complaint: ED Provider: Zana Root Dx/Rx/DC Orders Clinical Impression: Lightheadedness, Instructions: ED Dizziness, Uncertain Cause, ED Prescriptions: No Action albuterol sulfate 90 mcg/actuation HFA aerosol inhaler 2 puff PO BID PRN PRN (Reason: Asthma) Patient Comments: inhale 2 puffs by mouth every 4 hours if needed for cough or wheezing or shortness of breath budesonide-formoterol 160-4.5 mcg/actuation HFA aerosol inhaler 2 puff PO DAILY Patient Comments: inhale 2 puffs by mouth twice a day sertraline 100 MG tablet 100 mg PO DAILY levetiracetam 750 mg tablet 1,000 mg PO BID Patient Comments: take 1 tablet by mouth twice a day WesTab Plus 27 mg iron- 1 mg tablet 1 tab PO DAILY aspirin [Adult Low Dose Aspirin] 81 mg tablet,delayed release (DR/EC) 81 mg PO DAILY melatonin 5 mg tablet 2 PO .night folic acid 1 mg tablet 1 mg PO DAILY trazodone 100 mg tablet 50 mg PO QHS Primary Care Provider: Rose Stevens Referrals: Rose Stevens MD [Primary Care Provider] - 5-7 Days Print Language: Brazilian Disposition Disposition: Home, Self Care
[2024-07-27 10:35] VITALS: BP 100/62; BP 115/80; BP 129/72; PULSE 90; PULSE 91; PULSE 94
[2024-07-27 10:53] LABS: Mucous, Urine 0 SEEN /hpf (<or=2+); Red Blood Cells-Urine 0 SEEN /hpf (0-5)
[2024-07-27 10:55] LABS: Color, Urine Yellow (Yellow); Glucose, Dipstick Normal (Normal); Ketone-Dipstick Negative (Negative); Leukocyte Esterase-Dipstick 25 /ul (Negative); Nitrite-Dipstick Negative (Negative); Occult Blood-Urine Negative /ul (Negative); Protein-Dipstick 30 mg/dl (Negative); Specific Gravity, Urine 1.015 (1.002-1.030); Urine Bilirubin Dipstick Negative (Negative); Urine Clarity Sl. Cloudy (Clear); Urine Urobilinogen 1 mg/dl (Normal)
[2024-07-27] MEDS: 0.9% Normal Saline (1000mL) 1,000 ML 1000 ML IV (10:56)
[2024-07-27 11:04] LABS: Absolute Lymphocyte Count 1.79 X10^3/uL (0.83-4.51); Absolute Neutrophil Count 6.6 X10^3/uL (2.0-7.7); Basophil# 0.04 X10^3/uL; Basophil% 0.4 % (0-1); Eosinophils% 1.1 % (0-5); Hematocrit 36.8 % (37-47); Hemoglobin 12.4 g/dL (12.0-15.0); Lymphocyte # 1.79 X10^3/ul (0.83-4.51); Lymphocyte % 19.8 % (19-41); Mean Corp Hgb Conc 33.7 g/dL (32-36); Mean Corpuscular Volume 95.1 fL (81-99); Mean Platelet Vol. 9.5 fl (6.2-12.0); Monocyte% 5.5 % (0-10); NRBC Flagged by Analyzer 0 % (0-5); Neutrophil # 6.56 X10^3/uL (2.7-7.7); Neutrophil % 72.6 % (47-70); Platelet Count 275 K/mm3 (150-450); RBC Distribution Width CV 12.9 % (11.6-14.6); Red Blood Count 3.87 M/mm3 (4.2-5.4)
[2024-07-27 11:05] LABS: Squamous Epithelial Cells - UA 5-10 SEEN /hpf (5-10)
[2024-07-27 11:06] VITALS: BP 117/85; PULSE 81; RESP 19; O2SAT 98
[2024-07-27 11:06] LABS: Amorphous Sediment 1+; Bacteria 1+ /hpf (None Seen); White Blood Cells 0-5 SEEN /hpf (0-5)
[2024-07-27 11:22] LABS: ALB/GLOB Ratio 0.7 RATIO (0.9-2.4); AST(SGOT) 15 U/L (15-37); Alanine Aminotransfer ALT/SGPT 20 U/L (13-56); Alkaline Phosphatase 54 U/L (45-117); Anion Gap 7 (5-15); BUN 7 mg/dL (7-18); BUN/Creat Ratio 10.9 RATIO (10-20); Chloride 109 mmol/L (98-107); Creatinine, Serum 0.64 mg/dL (0.55-1.02); EST Glomerular Filtration Rate 114 mL/min (>60); Est Glom Filt Rate - Afr Amer 138 mL/min (>60); Estimated Creatinine Clearance 130.51 ml/min; Globulin 4.2 g/dL (2.2-4.2); Glucose 90 mg/dL (74-106); Potassium 3.8 mmol/L (3.5-5.1); Protein, Total 7.2 g/dL (6.4-8.2); Sodium Level 137 mmol/L (136-145)
[2024-07-27 11:59] VITALS: BP 112/89; PULSE 81; RESP 18; O2SAT 98
[2024-07-27 12:15] VITALS: BP 133/99; PULSE 81; RESP 18; TEMP 36.6; O2SAT 99
[2024-07-29 18:08] LABS: KEPPRA (LEVETIRACETAM) 2.5 ug/mL (10.0-40.0)
== END 2024-07-27 13:02 | disposition home or self-care (01) ==
PROVIDERS: Emergency Provider Emergency Medicine; PCP Internal Medicine; Visit Provider Emergency Medicine
DX: O99.891 Other specified diseases and conditions complicating pregnancy (principal); R42 Dizziness and giddiness; O99.342 Other mental disorders complicating pregnancy, second trimester; F32.A Depression, unspecified; F41.9 Anxiety disorder, unspecified; Z79.51 Long term (current) use of inhaled steroids; Z79.82 Long term (current) use of aspirin; Z79.899 Other long term (current) drug therapy; Z3A.19 19 weeks gestation of pregnancy; Z87.891 Personal history of nicotine dependence
CPT/HCPCS: 80053; 80177; 81001; 85025; 96360; 96361; 99283; J7030; A4216

== ENCOUNTER 2024-10-23 18:27 | Outpatient (CLI) | payer MEDICAID, SELFPAY ==
[2024-10-23] VITALS (7 sets, daily range): BP systolic 105; BP diastolic 65; PULSE 91–100; RESP 14; TEMP 36.4; O2SAT 98–100; BMI 40.2
--- NOTE | 2024-10-23 19:34 | OB.TRI.HP_ITS ---
HPI - General General Date of Admission: 10/23/24 Date of Service: 10/23/24 Chief Complaint: back pain HPI Narrative CARMINA AGUIRRE, is a 33 F who presents lower back pain. [place] discharge Maternal Data Information Final MAURICIO: 12/[birth year] Gestational age: 31+6 [facility] Medical History Anxiety Depression Opiate addiction Seizures Home Medications ?Medication ?Instructions ?Recorded ?Last Taken ?Type albuterol sulfate 90 mcg/actuation 2 puff PO BID PRN PRN Asthma 08/06/20 10/22/24 History aerosol inhaler budesonide-formoterol HFA 160 2 puff PO DAILY asthma 08/06/20 08/05/20 History mcg-4.5 mcg/actuation aerosol inhaler sertraline 100 mg tablet 100 mg PO DAILY DEPRESSION 03/01/21 10/22/24 History levetiracetam 750 mg tablet 1,000 mg PO BID 06/13/21 10/23/24 History folic acid 1 mg tablet 1 mg PO DAILY 02/10/24 02/10/24 History trazodone 100 mg tablet 50 mg PO QHS 02/10/24 10/22/24 History aspirin 81 mg tablet,delayed 81 mg PO DAILY 07/27/24 10/22/24 History release (Adult Low Dose Aspirin) melatonin 5 mg tablet 5 mg PO .night sleep 07/27/24 10/22/24 History vitamin with calcium 1 tab PO DAILY 07/27/24 10/23/24 History no.72-iron 27 mg-folic acid 1 mg tablet (WesTab Plus) Allergy/AdvReac Type Severity Reaction Status Date / Time No Known Allergies Allergy Verified 10/23/24 18:55 Surgical History Heart valve replaced Social History (Updated 07/27/24 @ 10:[address] Zana Root DO) Smoking Status: Former smoker substance use type: former substance user Date of last use: 10 months ago NST FHR Rate Baby A Baseline: 125 Variability:: Moderate Accelerations:: 15 x 15 Decelerations:: None NST Reactive:: Yes FHR Category:: Category I Uterine Activity:: quiet Assessment & Plan (1) Back pain affecting : (2) 31 weeks gestation of : PLAN: Plan ROM negative. back improved No contractions
[2024-10-23 19:36] LABS: Color, Urine Yellow (Yellow); Glucose, Dipstick Normal (Normal); Ketone-Dipstick Negative (Negative); Leukocyte Esterase-Dipstick 100 /ul (Negative); Nitrite-Dipstick Negative (Negative); Occult Blood-Urine Negative /ul (Negative); Protein-Dipstick 15 mg/dl (Negative); Specific Gravity, Urine 1.015 (1.002-1.030); Urine Bilirubin Dipstick Negative (Negative); Urine Clarity Sl. Cloudy (Clear); Urine Urobilinogen Normal (Normal)
[2024-10-23] MEDS: Acetaminophen 500 MG Tablet 1000 MG PO (19:55)
[2024-10-23 19:56] LABS: ROM Internal Control Test YES-OK TO RESULT pt. (Internal QC); ROM Patient Test Negative (Negative); Record Kit Lot#, ROM+ K1972
== END 2024-10-23 20:20 | disposition home or self-care (01) ==
LOC: WPOUT 18:29 → WP 18:31
PROVIDERS: PCP Internal Medicine; Referring Provider Obstetrics & Gynecology; Visit Provider Obstetrics & Gynecology
DX: O99.891 Other specified diseases and conditions complicating pregnancy (principal); M54.50 Low back pain, unspecified; N89.8 Other specified noninflammatory disorders of vagina; Z3A.31 31 weeks gestation of pregnancy; Z87.891 Personal history of nicotine dependence
CPT/HCPCS: 59025; 59050; 81002; 84112; 99221; G0378